=== PATIENT | female | born 1980 | race Caucasian/White ===

== ENCOUNTER 2024-07-06 06:14 | Emergency (ER) | payer OTHER, SELFPAY ==
--- OUTSIDE RECORDS SUMMARY | 2024-07-06 06:16 | XMS_ITS | CONTINUITY OF CARE DOCUMENT ---
Author Name User, QIE Address [address] [place] [address] [address] Address [address] [place] [address] [address] [place] [address] Phone [phone] Care Team Providers Care Stock Chaser Name Role Phone User, QIE Unavailable Unavailable
[2024-07-06] MEDS: ADENOSINE 6 MG/2ML INJ 12 MG IVP (06:51)
[2024-07-06] MEDS: 0.9 % SODIUM CHLORIDE 1000 ml 1,000 ML IV (06:51)
[2024-07-06 06:58] VITALS: BP 104/79; PULSE 227; RESP 22; TEMP 36.9; O2SAT 99
--- NOTE | 2024-07-06 07:00 | ED.GENADULT ---
HPI - General Adult General Chief complaint: Arrhythmia/Palpitations Stated complaint: SVT - Chest Pain Time Seen by Provider: 07/06/24 06:47 Source: patient Mode of arrival: ambulatory Limitations: no limitations History of Present Illness HPI narrative: 44-year-old smoker with recent pulmonary embolism, discharged last week from [facility] presents to the emergency department with episode of SVT that started shortly prior to arrival. She is anticoagulated for her pulmonary embolism. No history of AFib. Does have documented known history of SVT but has never required adenosine to treat in the past. Has tried vagal maneuvers with no success at home. Is having some achy chest pain and shortness of breath associated with her rapid heart rate. No new trauma or injury, no recreational drugs, no other associated complaints. Had been feeling well since hospital discharge until this morning with the episode of rapid heart rate. Past medical history notable for recent pulmonary embolism, history of SVT. Does not take any long-term medications besides the recent prescription for blood thinners, she is unsure which 1. No known drug allergies. ROS is notable for the cardiovascular symptoms as above only, otherwise denies times 12 systems. Related Data Allergies Allergy/AdvReac Type Severity Reaction Status Date / Time No Known Drug Allergies Allergy Verified 07/06/24 06:59 PFS PFS Social History Non-prescribed substance use: denies use Exam Const: Vital Signs, click to edit/add: Vital Signs - 24 hr 07/06/24 06:58 07/06/24 07:01 07/06/24 07:06 Temperature 98.5 F Pulse Rate 114 H Pulse Rate [Right Pulse Oximeter] 227 H Respiratory Rate 22 20 Blood Pressure 113/80 Blood Pressure [Le ft Upper Arm] 104/79 Pulse Oximetry 99 98 95 Oxygen Delivery Me thod Room Air Documenting provider has reviewed patient's vital signs: yes Common normals: alert General appearance: cooperative and well kempt Other: Mildly anxious but very appropriate for situation. Follows commands well. HENMT: Common normals: normocephalic, moist oral mucous membranes and oropharynx normal Head and scalp: normocephalic Eye: Common normals: conjunctivae normal General eye: normal appearance of both eyes Conjunctiva: conjunctiva(e) normal Neck & C-Spine: Common normals: no lymphadenopathy General: normal visual inspection Chest: Common normals: inspection of chest normal Resp: Common normals: normal respiratory effort, no use of accessory muscles and clear to auscultation bilaterally Effort & inspection: able to speak in complete sentences Auscultation: clear to auscultation bilaterally Cardio: Other: Very tachycardic, monitor reading 220s. I can not auscultate murmurs at this rate. GI: Common normals: Normal to inspection, nondistended, normoactive bowel sounds present, soft to palpation, non-tender, no hepatosplenomegaly and no masses Palpation: soft and no hepatosplenomegaly Neuro: Sensorium/orientation: alert Speech: speech normal Motor exam: no movement abnormalities noted Psych: Common normals: speech normal Appearance: well kempt Attitude: engaged Activity/motor behavior: appropriate eye contact Speech: normal speech Mood and affect: anxious Insight: insight good Judgement: judgment good Skin: Common normals: no rashes or lesions noted General skin exam: no rashes or lesions noted Course Course ED Course: 44-year-old female presenting with tachycardia. Bedside EKG quickly revealing supraventricular tachycardia as suspected. Rate is around 227. We attempted bedside vagal maneuvers x3 in these were not successful. It did take a little time to get an IV placed but once this was done, risks and benefits were discussed with patient and I recommended adenosine cardioversion. Verbal consent is obtained. Procedure: Cardioversion. Patient was bolused without 100 mL of fluid and then 12 mg of IV adenosine were given x1. Typical pause in heart rate occurred and then heart rate slowly returned in sinus rhythm, quickly picking up to about 120. Bedside EKG is again used to confirm sinus rhythm. Patient tolerated it well, states that her shortness of breath and chest pain are improving after the procedure. Will saline lock at 500 mL to avoid risk of heart failure. I do not think that she is going to get down to a ideal heart rate due to the pulmonary embolism. Reevaluation(s) Time of Reevaluation #1: 07:36 Reevaluation #1: Checked on patient, heart rate is now settling in the 110s. She is feeling better. We discussed risk factors for SVT, importance of staying on her blood thinners. Alarm symptoms that would warrant coming back to the ED. She verbalizes understanding and agreement of all this. Vital Signs Vital signs: Initial Vital Signs Temperature 98.5 F 07/06/24 06:58 Temperature Source Temporal Artery Scan 07/06/24 06:58 Pulse Rate 227 H 07/06/24 06:58 Pulse Rhythm Regular 07/06/24 06:58 Pulse Strength 3+ Normal 07/06/24 06:58 Respiratory Rate 22 07/06/24 06:58 Blood Pressure 104/79 07/06/24 06:58 Blood Pressure Mean 87 07/06/24 06:58 Blood Pressure Position Sitting 07/06/24 06:58 Pulse Oximetry 99 07/06/24 06:58 Oxygen Delivery Method Room Air 07/06/24 06:58 Vital Signs Temperature 98.5 F 07/06/24 06:58 Pulse Rate 227 H 07/06/24 06:58 Respiratory Rate 22 07/06/24 06:58 Blood Pressure 104/79 07/06/24 06:58 Pulse Oximetry 99 07/06/24 06:58 Oxygen Delivery Method Room Air 07/06/24 06:58 Temperature 98.5 F 07/06/24 06:58 Pulse Rate 114 H 07/06/24 07:06 Respiratory Rate 20 07/06/24 07:06 Blood Pressure 113/80 07/06/24 07:06 Pulse Oximetry 95 07/06/24 07:06 Oxygen Delivery Method Room Air 07/06/24 06:58 Medications Administered Medications: Generic Name Dose Route Start Last Admin Trade Name Freq PRN Reason Stop Dose Admin Sodium Chloride 1,000 mls @ 1,000 mls/hr 07/06/24 06:47 07/06/24 06:51 0.9 % Sodium Chloride 1000 Ml IV 07/06/24 07:46 1,000 mls/hr .Q1H DORCAS Administration Discontinued Medications Generic Name Dose Route Start Last Admin Trade Name Freq PRN Reason Stop Dose Admin Adenosine 12 mg 07/06/24 06:47 07/06/24 06:51 Adenosine 6 Mg/2ml Inj IVP 07/06/24 06:48 12 mg ONCE ONE Administration Discharge Plan Discharge Clinical Impression: Supraventricular tachycardia Patient Disposition: Home w/ Parent or Adult Condition: Improved Instructions: Supraventricular Tachycardia (ED) Additional Instructions: I am sorry that this episode happened, I do think that your heart was just a little more strained by the recent pulmonary embolism. It is okay for you to try those vagal maneuvers in the future, as they may be more effective for you at that time. This stronger episode with just likely the consequence of all the things going on in your body right now. The medication that your given, adenosine, only lasts in the bloodstream for a few seconds. There are no special restrictions for you other than what was already discussed by the doctors that cared for you for your blood clots. You will continue taking your blood thinners. It is common to have some achy chest pain that can last to a couple of hours. This is from the increased strain and demand on the heart but since you have had a recent normal angiogram, I am assured that this is not from a blockage of the coronary arteries. If you continue to have these episodes, sometimes will put you on a medication called a beta-anjali to help slow your heart rate but it is often not ideal due to side effects of increased shortness of breath. If you have further episodes of SVT and are unable to kick your self out of them at home with vagal maneuvers within 15-20 minutes, you should come into an emergency room. Come in any time if you are severely short of breath or having significant chest pain associated with this Activity Level: No Restrictions Discharge Diet: Regular Stand Alone Forms: [employer] Info Instructions
[2024-07-06 07:01] VITALS: O2SAT 98
[2024-07-06 07:06] VITALS: BP 113/80; PULSE 114; RESP 20; O2SAT 95
[2024-07-06 07:32] VITALS: BP 102/73
[2024-07-06 08:01] VITALS: O2SAT 81
--- OUTSIDE RECORDS SUMMARY | 2024-07-06 08:15 | XMS_ITS | Referral Summary ---
Author Organization [facility] Address [address] [place] [address] Care Team Providers Care Corporate Planner Name Role Phone No Ref-Primary, Physician Primary Care Provider Allergies No known active allergies Medications * This document contains information received from the source organization and may not represent a complete record from that organization. hydrOXYzine (ATARAX) 25 MG tabletIndications: Alcohol abuse Take 1-2 tablets (25-50 mg) by mouth 3 times daily as needed for anxiety 30 tablet 1 3 Active multivitamin w/minerals (THERA-VIT-M) tabletIndications: Alcohol dependence with uncomplicated withdrawal (H) Take 1 tablet by mouth daily 30 tablet 3 Active folic acid (FOLVITE) 1 MG tabletIndications: Alcohol abuse Take 1 tablet (1 mg) by mouth daily 30 tablet 3 Active melatonin 5 MG tabletIndications: Alcohol abuse Take 1 tablet (5 mg) by mouth every evening as needed for sleep 30 tablet 3 Active nicotine (NICORETTE) 2 MG gumIndications:Alc ohol abuse Place 1 each (2 mg) inside cheek every hour as needed for smoking cessation 30 each 3 Active thiamine (B-1) 100 MG tabletIndications: Alcohol abuse Take 1 tablet (100 mg) by mouth daily 30 tablet 3 Active traZODone (DESYREL) 50 MG tabletIndications: Alcohol abuse Take 1 tablet (50 mg) by mouth nightly as needed for sleep (may repeat after 60 minutes) 30 tablet 3 Active naltrexone (DEPADE/REVIA) 50 MG tabletIndications: Alcohol abuse Take 1 tablet (50 mg) by mouth daily 30 tablet 3 Active nitroFURantoin macrocrystal-monoh ydrate (MACROBID) 100 MG capsuleIndications :Urinary Tract Infection Take 1 capsule (100 mg) by mouth every 12 hours 10 capsule 3 Active Active Problems Problem Noted Date Diagnosed Date Alcohol abuse 06/08/2021 Alcohol dependence with uncomplicated withdrawal 06/08/2021 Social History Tobacco Use Types Packs/Day Years Used Date Smoking Tobacco: Every Day Cigarettes Smokeless Tobacco: Never Tobacco Cessation:Ready to Q uit: Not Asked; Counseling Given: Not Answered Alcohol Use Standard Drinks/Week Comments Yes 0 (1 standard drink = 0.6 oz pur e alcohol) daily Adolescent Education Answer Date Record ed Getting School Help Needed Not on file 03/23 Comments No Sex and Gender Information Value Date Recorded Sex Assigned at Female 06/09/2021 9:00 AM TERADATA SOLUTION ARCHITECT Legal Sex Female 4:18 AM TERADATA SOLUTION ARCHITECT Gender Identity Female 06/09/2021 9:00 AM TERADATA SOLUTION ARCHITECT Sexual Orientation Straight 06/09/2021 9: 00 AM TERADATA SOLUTION ARCHITECT Last Filed Vital Signs Vital Sign Reading Time Taken Comments Blood Pressure 122/81 10/22/2022 8:07 AM CDT Pulse 89 10/22/2022 8:07 AM CDT Temperature 36.4 C (97.6 F) 10/22/2022 8:07 AM CDT Respiratory Rate 16 10/22/2022 8:07 AM CDT Oxygen Saturation 100% 10/22/2022 8:07 AM CDT Inhaled Oxygen Concentration - - Weight 58.1 kg (128 lb) 10/20/2022 7:43 PM CDT Height 165.1 cm (5' 5) 10/20/2022 7:43 PM CDT Body Mass Index 21.3 10/20/2022 7:43 PM CDT Plan of Treatment Not on file Procedures Procedure Name Priority Date/Time Associated Diagnosis Comments BASIC METABOLIC PANEL Routine 10/22/2022 7:30 AM CDT LIPID PROFILE Routine 10/21/2022 6:29 AM CDT from Last 3 Months or Most Recently Relevant to Health Maintenance Results * Basic metabolic panel (10/22/2022 7:30 AM CDT) Sodium 137 136 - 145 mmol/L 10/22/2022 8:20 AM CDT [facility] Potassium 3.9 3.4 - 5.3 mmol/L 10/22/2022 8:20 AM CDT [facility] Chloride 103 98 - 107 mmol/L 10/22/2022 8:20 AM CDT [facility] Carbon Dioxide (CO2) 23 22 - 29 mmol/L 10/22/2022 8:20 AM CDT [facility] Anion Gap 11 7 - 15 mmol/L 10/22/2022 8:20 AM CDT [facility] Urea Nitrogen 7.7 6.0 - 20.0 mg/dL 10/22/2022 8:20 AM CDT [facility] Creatinine 0.68 0.51 - 0.95 mg/dL 10/22/2022 8:20 AM CDT [facility] Calcium 9.0 8.6 - 10.0 mg/dL 10/22/2022 8:20 AM CDT [facility] Glucose 89 70 - 99 mg/dL 10/22/2022 8:20 AM CDT [facility] GFR Estimate >90 >60 mL/min/1.7 3m2 10/22/2022 8:20 AM CDT [facility] Comment:eGFR calculated us2020 CKD-EPI equation. Blood STRUCTURE OF LEFT UPPER LIMB / Unknown Venipuncture / Unknown 10/22/2022 7:30 AM CDT 10/22/2022 7:47 AM CDT [facility] - BLOOD ORDERABLES Final Re sult [facility] [address] [facility] [place] [address], [facility] [phone] * Lipid panel (10/21/2022 6:29 AM CDT) Cholesterol 175 <200 mg/dL 10/21/2022 7:32 AM CDT [facility] Triglycerides 81 <150 mg/dL 10/21/2022 7:32 AM CDT [facility] Direct Measure HDL 102 >=50 mg/dL 2022 7:32 AM CDT [facility] LDL Cholesterol Calculated 57 <=100 mg/dL 10/21/2022 7:32 AM CDT [facility] Non HDL Cholesterol 73 <130 mg/dL 10/21/2022 7:32 AM CDT [facility] Blood STRUCTURE OF LEFT UPPER LIMB / Unknown Venipuncture / Unknown 10/21/2022 6:29 AM CDT 10/21/2022 6:57 AM CDT Narrative [facility] - 10/21/2022 7:32 AM CDT Cholesterol Desirable: <200 mg/dL Triglycerides Normal: Less than 150 mg/dL Borderline High: 150-199 mg/dL High: 200-499 mg/dL Very High: Greater than or equal to 500 mg/dL Direct Measure HDL Female: Greater than or equal to 50 mg/dL Male: Greater than or equal to 40 mg/dL LDL Cholesterol Desirable: <100mg/dL Above Desirable: 100-129 mg/dL Borderline High: 130-159 mg/dL High: 160-189 mg/dL Very High: >= 190 mg/dL Non HDL Cholesterol Desirable: 130 mg/dL Above Desirable: 130-159 mg/dL Borderline High: 160-189 mg/dL High: 190-219 mg/dL Very High: Greater than or equal to 220 mg/dL Jimena Pérez MD LAB - BLOOD ORDERABLES Tiffanie kinney Result [facility] [address] [facility] [place] [address], [facility] [phone] from Last 3 Months or Most Recently Relevant to Health Maintenance Insurance [facility] Advance Directives For more information, please contact: [phone] * Full Code (Latest Code Status on File) Date Activated Date Inactivated Comments 06/08/2021 6:01 AM 06/09/2021 7:14 PM All basic and advanced life-sustaining interventions are performed as appropriate Question Answer Comments Code status determined by: Discussion with patie nt/ legal decision maker Care Teams Corporate Planner Relationship Specialty Start Date End Date No Ref-Primary, Physician PCP - General 05/26/21
--- OUTSIDE RECORDS SUMMARY | 2024-07-06 08:15 | XMS_ITS | Encounter Summary ---
Author Organization [facility] Address [address] [place] [address] Care Team Providers Care Teacher Asst Name Role Phone No Ref-Primary, Physician Primary Care Provider Reason for Visit * Reason Onset Date Comments CD Outpatient 01/03/2014 eval Encounter Details Date Type Department Care Team ([facility] Contact Info) Description 01/03/2014 Telephone [facility] Behavioral Health Intake [address] [place] [address] [phone] Generic, Behavioral Intake, CD Outpatient (eval ) Social History Tobacco Use Types Packs/Day Years Used Date Smoking Tobacco: Never Assessed Comments Unknown Sex and Gender Information Value Date Recorded Sex Assigned at Female 06/09/2021 9:00 AM RESIDENT ADVISOR Legal Sex Female 4:18 AM RESIDENT ADVISOR Gender Identity Female 06/09/2021 9:00 AM RESIDENT ADVISOR Sexual Orientation Straight 06/09/2021 9: 00 AM RESIDENT ADVISOR documented as of this encounter Miscellaneous Notes * Telephone Encounter - Jin Charles - 01/04/2014 8:28 AM CDT Received rule 25 evaluation. Faxed to [facility] for the 01/18/14 assessment. kab * Telephone Encounter - Dorian Overton - 01/03/2014 3:15 PM CDT [facility] due [facility] detox rcd call from [facility]pp[facility] # [phone] Pt plan to dc 01/04 seeking iop [facility] will fax eval from them They have recommended in/pt but due to situational concerns they are ok with iop if accepted by [facility]. Face to face formerly [facility] 01/18 @ [facility] please forward eval when rcvd documented in this encounter Plan of Treatment Not on file documented as of this encounter Visit Diagnoses Not on filedocumented in this encounter Care Teams Teacher Asst Relationship Specialty Start Date End Date No Ref-Primary, Physician PCP - General 05/26/21 documented as of this encounter
--- OUTSIDE RECORDS SUMMARY | 2024-07-06 08:15 | XMS_ITS | Encounter Summary ---
Author Organization [employer] Address [address] [place] [address] Care Team Providers Care Scout Professional Sports Name Role Phone No Ref-Primary, Physician Primary Care Provider Encounter Details Date Type Department Care Team ([facility] st Contact Info) Description 06/20/2021 Documentation Only INTERFACED REPORT Unknown, Provider Social History Tobacco Use Types Packs/Day Years Used Date Smoking Tobacco: Never Smokeless Tobacco: Never Alcohol Use Standard Drinks/Week Comments Yes 0 (1 standard drink = 0.6 oz pur e alcohol) daily Comments Unknown Sex and Gender Information Value Date Recorded Sex Assigned at Female 06/09/2021 9:00 AM METAL HANDLER Legal Sex Female 4:18 AM METAL HANDLER Gender Identity Female 06/09/2021 9:00 AM METAL HANDLER Sexual Orientation Straight 06/09/2021 9: 00 AM METAL HANDLER COVID-19 Exposure Response Date Recorded In the last month, have you been in contact with someone who was confirmed or suspected to have Coronavirus / COVID-19? No / Unsure 06/19/2021 9:51 PM METAL HANDLER documented as of this encounter Plan of Treatment Not on file documented as of this encounter Visit Diagnoses Not on filedocumented in this encounter Care Teams Scout Professional Sports Relationship Specialty Start Date End Date No Ref-Primary, Physician PCP - General 05/26/21 documented as of this encounter
--- OUTSIDE RECORDS SUMMARY | 2024-07-06 08:15 | XMS_ITS | Encounter Summary ---
Author Organization [facility] Address [facility] [place] [address] Care Team Providers Care Wet Process Miller Name Role Phone No Ref-Primary, Physician Primary Care Provider Encounter Details Date Type Department Care Team ([facility] st Contact Info) Description 05/27/2021 Documentation Only INTERFACED REPORT Unknown, Provider Social History Tobacco Use Types Packs/Day Years Used Date Smoking Tobacco: Never Assessed Comments Unknown Sex and Gender Information Value Date Recorded Sex Assigned at Female 06/09/2021 9:00 AM DUTY MANAGER Legal Sex Female 4:18 AM DUTY MANAGER Gender Identity Female 06/09/2021 9:00 AM DUTY MANAGER Sexual Orientation Straight 06/09/2021 9: 00 AM DUTY MANAGER COVID-19 Exposure Response Date Recorded In the last month, have you been in contact with someone who was confirmed or suspected to have Coronavirus / COVID-19? No / Unsure 05/26/2021 12:10 PM DUTY MANAGER documented as of this encounter Plan of Treatment Not on file documented as of this encounter Visit Diagnoses Not on filedocumented in this encounter Care Teams Wet Process Miller Relationship Specialty Start Date End Date No Ref-Primary, Physician PCP - General 05/26/21 documented as of this encounter
--- OUTSIDE RECORDS SUMMARY | 2024-07-06 08:15 | XMS_ITS | Clinical Summary ---
Author Organization [facility] Address [address] [place] [address] Care Team Providers Care Novelties Sales Representative Name Role Phone No Ref-Primary, Physician Primary [...] 06/08/2021 Alcohol dependence with uncomplicated withdrawal 06/08/2021 Family History Medical History Relation Comments Substance Abuse Father Alcoholism Mother Relation Status Comments Father Mother Social History Tobacco Use Types Packs/Day Years [...] Sex Assigned at Female 06/09/2021 9:00 AM WASTE PAPER HAMMERMILL OPERATOR Legal Sex Female 4:18 AM WASTE PAPER HAMMERMILL OPERATOR Gender Identity Female 06/09/2021 9:00 AM WASTE PAPER HAMMERMILL OPERATOR Sexual Orientation Straight 06/09/2021 9: 00 AM WASTE PAPER HAMMERMILL OPERATOR Last Filed Vital Signs Vital Sign Reading [...] 10/20/2022 7:43 PM CDT Plan of Treatment Health Maintenance Due Date Last Done Comments ADVANCE CARE PLANNING 1980 ANNUAL REVIEW OF HM ORDERS 1980 MAMMO SCREENING 1980 YEARLY PREVENTIVE VISIT 01/25/1983 HIV SCREENING 01/25/1995 HEPATITIS C SCREENING 01/25/1998 HEPATITIS B IMMUNIZATION (1 of 3 - 19+ 3-dose series) 01/25/1999 Pneumococcal Vaccine: Pediatrics (0 to 5 Years) and At-Risk Patients (6 to 49 Years) (1 of 2 - PCV) 01/25/1999 PAP 01/25/2001 COVID-19 Vaccine (3 - season) 2024 09/30/2020, 09/09/2020 INFLUENZA VACCINE (#1) 2024 , 07/22/2019, 03/26/2018, Additional history exists PHQ-2 (once per calendar year) 2024 GLUCOSE 10/22/2025 10/22/2022, 0511/2022, 06/19/2021, Additional history exists LIPID 10/22/2027 10/21/2022, 06/09/2021 DTAP/TDAP/TD IMMUNIZATION (4 - Td or Tdap) 01/13/2028 01/12/2018, 01/29/2006, 01/29/1994 ZOSTER IMMUNIZATION (1 of 2) 01/25/2030 RSV VACCINE (1 - 1-dose 75+ series) 01/25/2055 HPV IMMUNIZATION Aged Out No longer e ligible based on patient's age to complete this topic MENINGITIS IMMUNIZATION Aged Out No l onger eligible based on patient's age to complete this topic RSV MONOCLONAL ANTIBODY Aged Out No l onger eligible based on patient's age to complete this topic Procedures Procedure Name Priority Date/Time Associated Diagnosis [...] 7:30 AM CDT 10/22/2022 7:47 AM CDT us [facility] - BLOOD ORDERABLES Final Re sult UR LABORATORY [facility] [address] [facility] [place] [address], [facility] [phone] * Lipid panel (10/21/2022 6:29 AM CDT) [...] Greater than or equal to 220 mg/dL us Jimena Pérez MD LAB - BLOOD ORDERABLES Tiffanie kinney Result UR LAB[facility]ATORY [facility] [address] [facility] [place] [address], [facility] [phone] from Last 3 Months or Most Recently Relevant to Health Maintenance Insurance [facility] Advance Directives For more information, please contact: [phone] * Full Code (Latest Code Status on File) Date Activated Date Inactivated Comments 06/08/2021 6:01 AM 06/09/2021 7:14 PM All basic and advanced life-sustaining interventions are performed as appropriate Question Answer Comments Code status determined by: Discussion with anton nt/ legal decision maker Care Teams Novelties Sales Representative Relationship Specialty Start Date End Date No Ref-Primary, Physician PCP - General 05/26/21
--- OUTSIDE RECORDS SUMMARY | 2024-07-06 08:16 | XMS_ITS | Encounter Summary ---
Author Organization [facility] Address [address] [address] Phone Care Team Providers Care Ballast Inspector Name Role Phone Rima Florence DO Primary Care Provider [phone] Encounter Details Date Type Department Care Team (Latest Contact Info) Description 07/03/2024 Travel Social History Tobacco Use Types Packs/Day Years Used Date Smoking Tobacco: Every Day Cigarettes 1 20 Smokeless Tobacco: Never Comments:Pt has been discuss ing quitting smoking with her personal doctor Alcohol Use Standard Drinks/Week Comments Yes 12 (1 standard drink = 0.6 oz pure alcohol) Hx of ETOH abuse, states she is drinking 1 litre of vodka per day 08/15/23 [facility] Custom IPV Answer Date Recorded Do you feel UNSAFE in any of your personal relationships with your family members or any other acquaintances? Yes 2024 Comments No Sex and Gender Information Value Date Recorded Sex Assigned at Female 01/05/2021 12:17 PM CDT Legal Sex Female 8:45 AM CDT Gender Identity Female 01/05/2021 12:17 PM CDT Sexual Orientation Not on file documented as of this encounter Functional Status * Patient's Vision Adequate to Safely Complete Daily Activities Answer Date of Assessment Author Yes 07/03/2024 11:05 AM Michael Bansal RN * Patient's Memory Adequate to Safely Complete Daily Activities Answer Date of Assessment Author Yes 07/03/2024 11:05 AM Michael Bansal RN documented as of this encounter Mental Status * Patient's Judgment Adequate to Safely Complete Daily Activities Answer Entry Date Author Yes 07/03/2024 11:05 AM [employer] Michael Saeed RN documented in this encounter Plan of Treatment Not on file documented as of this encounter Visit Diagnoses Not on filedocumented in this encounter Care Teams Ballast Inspector Relationship Specialty Start Date End Date Rima Florence DO [address] [address] PCP - General Family Medicine 06/16/24 documented as of this encounter
--- OUTSIDE RECORDS SUMMARY | 2024-07-06 08:16 | XMS_ITS | Clinical Summary ---
Author Organization [facility] Address [address] [place] [id number] Phone Care Team Providers Care Barnworker Groom Name Role Phone Rima Florence DO Primary Care Provider [phone] Medications metoprolol succinate (Toprol-XL) 25 MG 24 hour extended-releas e tablet Take 12.5 mg by mouth one time a day as needed (prn SVT). PT takes as needed for SVT 1 Active hydrOXYzine HCl (ATARAX) 25 MG tablet Take 25-50 mg by mouth three times a day as needed for Anxiety. Active tretinoin (Retin-A) 0.025 % creamIndication s:Neoplasm of skin Apply topically one time a day. Apply a pea sized amount to entire face; start out 2-3 times a week and gradually increase as skin tolerates 45 g 5 2 Active TAPENTADOL HCL OR Take 25 mg by mouth one time a day. Active apixaban (Eliquis) 5 MG tablet Take 5 mg by mouth two times a day. 5 Active Active Problems Problem Noted Date Diagnosed Date Paroxysmal SVT (supraventricular tachycardia) Panic attacks 09/30/2022 History of atypical nevus 04/09/2022 Overview (04/09/2022): left breast; moderate atypia, margins clear ([id number]). Assessment & Plan (04/09/2022 1:44 PM CDT): 04/09/22 PLAN: - Continue skin exams regularly as we have discussed. I do not see any signs of recurrence of your prior atypical mole Continue to monitor for any new or unusual skin lesions, and return to clinic for a recheck of any concerning spots prior to your next planned office visit. Continue to practice good sun protection. Neoplasm of skin 04/09/2022 Assessment & Plan (04/09/2022 1:51 PM CDT): 04/09/22 Plan: - We took a skin sample today via Shave biopsy and Punch removal to send to the lab to test. Our office will call you with results as soon has they have been returned to us for review - If applicable to your procedure practice good wound care to site(s) until the skin is fully healed and is pink/smooth. Written instructions about your provider's recommendations were provided to you at the time of your visit. Location: mid abdomen,left lateral brow Solar lentiginosis 04/09/2022 Assessment & Plan (04/09/2022 1:48 PM CDT): 04/09/22 PLAN: >>start Tretinoin 0.025% cream; use a pea sized amount to entire face at bedtime, start out 2-3 times a week gradually increase as skin tolerates Social anxiety disorder 01/01/2022 Alcohol use disorder, moderate, in controlled en vironment 01/01/2022 Alcohol abuse with withdrawal 12/26/2021 Alcoholism 06/04/2021 Alcoholic intoxication with complication 021 Rosacea 01/07/2018 Alcohol dependence 12/31/2013 Depressive disorder 09/16/2005 Alcohol abuse 09/16/2005 Resolved Problems Problem Noted Date Diagnosed Date Resolved Date Imbalance 10/01/2022 08/09/2023 Gastroenteritis 10/01/2022 08/09/2023 Dehydration 09/30/2022 08/09/2023 Hypernatremia 09/30/2022 08/09/2023 Encounters Date Type Department Care Team Description 07/03/2024 10:47 AM [employer] - 07/03/2024 4:37 PM [employer] Emergency [facility] EMERGENCY DEPARTMENT [address] [place] [phone] Syed Kirk MD Welch, Cady M, MD Alcoholic intoxication without complication (HCC) (Primary Dx) Discharge Disposition: Home and/or Self Care 07/03/2024 Travel 06/23/2024 3:35 AM [employer] - 06/23/2024 11:44 AM [facility] EMERGENCY DEPARTMENT [address] [place] [phone] Wendy Juarez MD Dundee, Sarah E, MD Alcoholic intoxication without complication (HCC) (Primary Dx) Discharge Disposition: Home and/or Self Care 06/23/2024 Travel 06/16/2024 11:38 AM [employer] - 06/16/2024 1:02 PM [facility] EMERGENCY DEPARTMENT [address] [place] [phone] Ana He MD Discharge Disposition: Left Without Being Seen (ED only) 06/16/2024 11:30 AM [facility] Office Visit [facility] [address] [phone] Stone Caceres PA-C Pain of lower extremity, unspecified laterality (Primary Dx) 06/16/2024 Travel 06/03/2024 11:36 AM [facility] - 06/03/2024 9:22 PM [facility] EMERGENCY DEPARTMENT [address] [place] [phone] Roni Hunt PA-C Hiren Heard PA-C Alcohol abuse (Primary Dx); COVID-19 Discharge Disposition: Home and/or Self Care 06/03/2024 Travel from Last 3 Months Surgical History Surgery Date Site/Laterality Comments FINGER SURGERY Description: Mass excision Medical History Medical History Date Comments History of atypical nevus 01/13/2018 Descri ption: 01/2018 left breast -watch Mod History of cardiac murmur 01/07/2018 Family History Medical History Relation Comments No Known Problems Father RV [employer] TW - Problem: No pertinent family history Melanoma Maternal Grandfather [employer] TW - Problem: Family history of malignant melanoma, Comment: Description: from MM located on the back. Was told this was the genetic type, does not know of any other family members with MM or pancreatic cancer. No Known Problems Mother [employer] TW - Problem: No pertinent family history Thyroid Disease Sister RV [employer] TW Relation Status Comments Father Maternal Grandfather Mother Sister Social History Tobacco Use Types Packs/Day Years Used Date Smoking Tobacco: Every Day Cigarettes 1 20 Smokeless Tobacco: Never Tobacco Cessation:Ready to Q uit: Not Asked; Counseling Given: Not Answered Comments:Pt has been discussing quitting smoking with her personal doctor Alcohol Use Standard Drinks/Week Comments Yes 12 (1 standard drink = 0.6 oz pure alcohol) Hx of ETOH abuse, states she is drinking 1 litre of vodka per day 08/15/23 IP Custom IPV Answer Date Recorded Do you feel UNSAFE in any of your personal relationships with your family members or any other acquaintances? Yes 2024 Comments No Sex and Gender Information Value Date Recorded Sex Assigned at Female 01/05/2021 12:17 PM CDT Legal Sex Female 8:45 AM CDT Gender Identity Female 01/05/2021 12:17 PM CDT Sexual Orientation Not on file Obstetrics History Last Filed Vital Signs Vital Sign Reading Time Taken Comments Blood Pressure 114/71 07/03/2024 11:00 AM [employer] Pulse 106 07/03/2024 11:00 AM [employer] Temperature 37 C (98.6 F) 07/03/2024 11:10 AM [employer] Respiratory Rate 16 07/03/2024 4:34 PM [employer] Oxygen Saturation 97% 07/03/2024 12:21 PM [employer] Inhaled Oxygen Concentration - - Weight 54.4 kg (120 lb) 06/16/2024 11:51 AM [employer] Height 165.1 cm (5' 5) 06/03/2024 11:29 AM [employer] Body Mass Index 19.97 06/03/2024 11:29 AM [employer] Plan of Treatment Health Maintenance Due Date Last Done Comments Cervical Cancer Screening 1980 Last pap w/ HPV Testing 1980 Last pap w/o HPV Testing 1980 Hepatitis B Vaccine (Standing Order) (1 of 3 - 19+ 3-dose series) 01/25/1999 PERTUSSIS (Standing Order) 01/25/1999 Pneumococcal/PCV20 Vaccine: Pediatrics (2-5 yrs) and At-Risk Patients (6-49 yrs) (Standing Order) (1 of 2 - PCV) 01/25/1999 TETANUS (Standing Order) 01/25/1999 COVID-19 Vaccine (2023- season) 2024 Influenza Vaccine Seasonal (Standing Order) (#1) 2024 MAMMO,SCREEN 03/14/2025 03/14/2024, 06/25/2020 HPV Vaccine (Standing Order) Aged Out No longer eligible based on patient's age to complete this topic Procedures Procedure Name Priority Date/Time Associated Diagnosis Comments POCT BREATHALYZER COLEMAN 07/03/2024 11: 12 AM [employer] POCT BREATHALYZER COLEMAN 06/23/2024 8:5 5 AM [employer] ALCOHOL STAT 06/23/2024 4:08 AM [employer] POCT BREATHALYZER COLEMAN 06/03/2024 9:0 5 PM [employer] POCT BREATHALYZER COLEMAN 06/03/2024 7:3 7 PM [employer] CT ANGIO CHEST PE STAT 06/03/2024 3:4 3 PM [employer] SARS-COV-2/INFLUENZA A AND B/RESPIRATORY SYNCYTIAL VIRUS, MOLECULAR DETECTION STAT 06/03/2024 1:30 PM [employer] EKG 12-LEAD STAT 06/03/2024 1:12 PM [employer] D-DIMER STAT 06/03/2024 1:12 PM [employer] HEMOGRAM STAT 06/03/2024 1:12 PM [employer] VENOUS BLOOD GASES STAT 06/03/2024 12 :52 PM [employer] LIPASE STAT 06/03/2024 12:52 PM [employer] MAGNESIUM STAT 06/03/2024 12:52 PM [employer] COMPREHENSIVE METABOLIC PANEL STAT 06/03/2024 12:52 PM [employer] HCG, URINE QUALITATIVE STAT 12:33 PM [employer] URINALYSIS, REFLEX TO CULTURE STAT 06/03/2024 12:33 PM [employer] POCT BREATHALYZER COLEMAN 06/03/2024 11: 55 AM [employer] MAMM JU DIAG DIGITAL BILAT Routine 03/14/2024 2:25 PM CDT Breast pain Dense breast from Last 3 Months or Most Recently Relevant to Health Maintenance Results * POCT BREATHALYZER (06/23/2024 8:55 AM [employer]) Only the most recent of3 resultswithin the time period is included. POC BREATHALYZER 0.214 06/23/2024 8:55 AM [employer] us Jessica Waters MD IP POINT OF CARE TEST ORDERABL ES Final Result * (ABNORMAL) ALCOHOL (06/23/2024 4:08 AM [employer]) Alcohol 0.385(H) <=0.010 % 06/23/2024 4:42 AM [employer] [facility] Blood BLOOD SPECIMEN / Unknown Venipuncture / Unknown 06/23/2024 4:08 AM [employer] 06/23/2024 4:10 AM [employer] us Wendy Juarez MD EC CHEMISTRY ORDERABLES Fin al Result [facility] [address] [place] [address], [facility] [phone] * CT ANGIO CHEST PE (06/03/2024 3:43 PM [employer]) Anatomical Region Laterality Modality Chest, Lung Computed Tomogra phy 06/03/2024 3:49 PM [employer] Narrative 06/03/2024 4:12 PM [employer] For Patients: As a result of the Cures Act, medical imaging exams and procedure reports are released immediately into your electronic medical record. You may view this report before your referring provider. If you have questions, please contact your health care provider. INDICATION: Short of breath. COMPARISON: None. TECHNIQUE: CT angiogram chest with contrast, pulmonary embolism protocol. Multiplanar axial, coronal, and sagittal reformats are included. MIP images to improve detection of pulmonary emboli are included. Intravenous contrast: 100 mL Omnipaque 350. FINDINGS: PE: Well-timed contrast bolus. No pulmonary emboli. Normal caliber main pulmonary artery. Normal sized right heart chambers. No reflux of contrast below the diaphragm. Airway: Normal tracheobronchial tree. Lungs: Mild respiratory motion. Mild basilar atelectasis. No nodules or masses. No consolidations. Normal appearance of the pulmonary interstitium. Pleura: No pleural effusion. No pneumothorax. Lymph nodes: No thoracic adenopathy. Mediastinum: No pneumomediastinum. No mass. Heart and great vessels: No pericardial effusion. Normal cardiac chamber size. No calcified atherosclerotic plaques. No aortic aneurysm. Chest wall: Normal. No masses. Upper abdomen: Severe hepatic steatosis and hepatomegaly. Bones: No fractures. No focal bone lesions. IMPRESSION: 1. No pulmonary embolus. 2. No acute thoracic findings. 3. Severe hepatic steatosis and hepatomegaly. Please note that all CT scans at this facility use dose modulation, iterative reconstruction, and/or weight-based dosing when appropriate to reduce radiation dose to as low as reasonably achievable. Dictated by Pastora Nichols MD @ 06/03/2024 4:12:52 PM Electronically Signed Procedure Note Pastora Nichols MD - 06/03/2024 For Patients: As a result of the Cures Act, medical imagingexams and procedure reports are released immediately into your electronicmedical record. You may view this report before your referring provider. If youhave questions, please contact your health care provider. INDICATION: Short of breath. COMPARISON: None. TECHNIQUE: CT angiogram chest with contrast, pulmonary embolism protocol.Multiplanar axial, coronal, and sagittal reformats are included. MIP images toimprove detection of pulmonary emboli are included. Intravenous contrast: 100 mL Omnipaque 350. FINDINGS: PE: Well-timed contrast bolus. No pulmonary emboli. Normal caliber main pulmonary artery. Normal sized right heart chambers. No reflux of contrastbelow the diaphragm. Airway: Normal tracheobronchial tree. Lungs: Mild respiratory motion. Mild basilar atelectasis. No nodules ormasses. No consolidations. Normal appearance of the pulmonary interstitium. Pleura: No pleural effusion. No pneumothorax. Lymph nodes: No thoracic adenopathy. Mediastinum: No pneumomediastinum. No mass. Heart and great vessels: No pericardial effusion. Normal cardiac chambersize. No calcified atherosclerotic plaques. No aortic aneurysm. Chest wall: Normal. No masses. Upper abdomen: Severe hepatic steatosis and hepatomegaly. Bones: No fractures. No focal bone lesions. IMPRESSION: 1. No pulmonary embolus. 2. No acute thoracic findings. 3. Severe hepatic steatosis and hepatomegaly. Please note that all CT scans at this facility use dose modulation,iterative reconstruction, and/or weight-based dosing when appropriate to reduceradiation dose to as low as reasonably achievable. Dictated by Pastora Nichols MD @ 06/03/2024 4:12:52 PM Electronically Signed Roni Hunt PA-C CT ORDERABLES Final Result * (ABNORMAL) SARS-COV-2/INFLUENZA A AND B/RESPIRATORY SYNCYTIAL VIRUS, MOLECULAR DETECTION (06/03/2024 1:30 PM [employer]) SARS-CoV-2 RNA (COVID-19) Detected(A) Not Detected 06/03/2024 2:14 PM [employer] [facility] Influenza A Not Detected Not Detected 06/03/2024 2:14 PM [employer] [facility] Influenza B Not Detected Not Detected 06/03/2024 2:14 PM [employer] [facility] Respiratory Syncytial Virus Not Detected Not Detected 06/03/2024 2:14 PM [employer] [facility] Swab ENTIRE NASOPHARYNX / Unknown Non-blood collection / Unknown 06/03/2024 1:30 PM [employer] 06/03/2024 1:35 PM [employer] Narrative [facility] - 06/03/2024 2:14 PM [employer] Test detects target RNA by real-time polymerase chain reaction (PCR) on the [employer] GeneXpert System. Results from this test should not be used as the sole basis for treatment or other patient management decisions. Roni Hunt PA-C EC MICROBIOLOGY - GENERAL ORD ERABLES Final Result Performing Organization Address City/[facility]/ZIP Co de Phone Number [facility] [address] [phone] * EKG 12-LEAD (06/03/2024 1:12 PM [employer]) Ventricular Rate 91 BPM RMCMUSE Atrial Rate 91 BPM RMCMUSE P-R Interval 150 ms RMCMUSE QRS Duration 82 ms RMCMUSE QT 396 ms RMCMUSE QTc 487 ms RMCMUSE P [place] 70 degrees RMCMUSE R [place] -43 degrees RMCMUSE T [place] 53 degrees RMCMUSE 06/03/2024 1:12 PM [employer] 06/06/2024 6:09 PM [employer] Narrative RMCMUSE - 06/06/2024 6:09 PM [employer] Confirming Hai Dover Normal sinus rhythm Left axis deviation Prolonged QT Abnormal ECG When compared with ECG of 01-AUG-2023 20:01, Nonspecific T wave abnormality no longer evident in Inferior leads Procedure Note Provider, Rv Unknown - 06/06/2024 Confirming Hai Dover Normal sinus rhythm Left axis deviation Prolonged QT Abnormal ECG When compared with ECG of 01-AUG-2023 20:01, Nonspecific T wave abnormality no longer evident in Inferior leads us Roni Hunt PA-C IP ECG ORDERABLES Final Resul t Performing Organization Address City/[facility]/ZIP Co de Phone Number RMCMUSE * HEMOGRAM (06/03/2024 1:12 PM [employer]) WBC 4.4 4.0 - 11.0 10*3/uL 06/03/2024 1:16 PM [facility] RBC 4.99 3.80 - 5.20 10*6/uL 06/03/2024 1:16 PM [facility] HGB 14.9 12.0 - 16.0 g/dl 06/03/2024 1:16 PM [facility] HCT 42.9 35.0 - 47.0 % 06/03/2024 1:16 PM [facility] MCV 86.0 80 - 98 fL 06/03/2024 1:16 PM [facility] MCH 29.9 27.0 - 34.0 pg 06/03/2024 1:16 PM [facility] MCHC 34.7 32 - 36 g/dl 06/03/2024 1:16 PM [facility] PLT 258 150 - 420 10*3/uL 06/03/2024 1:16 PM [facility] RDW-CV 13.1 11.6 - 14.4 % 06/03/2024 1:16 PM [facility] RDW-SD 40.8 36.5 - 46.3 fL 06/03/2024 1:16 PM [facility] Blood BLOOD SPECIMEN / Unknown Venipuncture / Unknown 06/03/2024 1:12 PM [employer] 06/03/2024 1:14 PM [employer] Roni Hunt PA-C EC HEMATOLOGY ORDERABLES Tiffanie l Result Performing Organization Address City/State/[facility] Co de Phone Number [facility] [address] [place] [address] * (ABNORMAL) D-DIMER (06/03/2024 1:12 PM [employer] M[employer]) Pathologist [facility] D-Dimer 1.37(H) 0.22 - 0.50 mg/L 06/03/2024 1:24 PM [facility] Blood BLOOD SPECIMEN / Unknown Venipuncture / Unknown 06/03/2024 1:12 PM [employer] 06/03/2024 1:14 PM [employer] MACH[employer] [facility] - 06/03/2024 1:24 PM [employer] Result is mg/L FEU (Fibrinogen Equivalent Units) D-Dimer is elevated in DVT,PE, and DIC, however, D-Dimer in NOT specific for DVT and PE and therefore, cannot be applied as a sole confirmatory marker. D-Dimer should be used as an aide in diagnosis. An [facility] laboratory study showed that the cutoff value of 0.5 mg/L FEU has a 100% negative predictive value us Roni Hunt PA-C EC HEMATOLOGY ORDERABLES Tiffanie l Result [facility] [address] [phone] * (ABNORMAL) COMPREHENSIVE METABOLIC PANEL (06/03/2024 12:52 PM [employer]) Sodium 138 135 - 144 mmol/L 06/03/2024 1:28 PM [facility] Potassium 3.6 3.4 - 5.1 mmol/L 06/03/2024 1:28 PM [facility] Comment:Specimen slightly he molyzed. Chloride 100 98 - 107 mmol/L 06/03/2024 1:28 PM [facility] Carbon Dioxide 24 22 - 30 mmol/L 06/03/2024 1:28 PM [facility] Calcium 8.6 8.6 - 10.3 mg/dL 06/03/2024 1:28 PM [facility] Alkaline Phosphatase 81 38 - 126 U/L 06/03/2024 1:28 PM [facility] Comment:Specimen slightly he molyzed. Aspartate Aminotransferase 79(H) 14 - 36 U/L 06/03/2024 1:28 PM [facility] Comment:Specimen slightly he molyzed. Alanine Aminotransferase 49(H) <35 U/L 06/03/2024 1:28 PM [facility] Glucose 94 74 - 100 mg/dL 06/03/2024 1:28 PM [facility] Blood Urea nitrogen 12 7 - 17 mg/dL 06/03/2024 1:28 PM [facility] Creatinine 0.50(L) 0.52 - 1.04 mg/dL 06/03/2024 1:28 PM [facility] Protein, Total 7.8 6.3 - 8.2 g/dL 06/03/2024 1:28 PM [facility] Albumin 4.8 3.5 - 5.0 g/dL 06/03/2024 1:28 PM [facility] Bilirubin, Total 0.6 0.2 - 1.3 mg/dL 06/03/2024 1:28 PM [facility] Globulin 3.0 1.4 - 4.8 g/dL 06/03/2024 1:28 PM [facility] Anion Gap 14 5 - 15 mmol/L 06/03/2024 1:28 PM [facility] Glomerular Filtration Rate >60 >60 mL/min/1. 73 m*2 06/03/2024 1:28 PM [facility] Comment:This calculation use s CKD-EPI 2020 equation; it has not been validated in women. Blood BLOOD SPECIMEN / Unknown Venipuncture / Unknown 06/03/2024 12:52 PM [employer] 06/03/2024 12:55 PM [employer] us Roni Hunt PA-C EC CHEMISTRY ORDERABLES Final Result Performing Organization Address City/State/[facility] Co de Phone Number [facility] [address] [place] [address] * (ABNORMAL) VENOUS BLOOD GASES (06/03/2024 12:52 PM [employer]) pH, Venous 7.46(H) 7.35 - 7.45 06/03/2024 12:58 PM [facility] pCO2, Venous 37 34 - 50 mmHg 06/03/2024 12:58 PM [facility] pO2, Venous 48 24 - 48 mmHg 06/03/2024 12:58 PM [employer] [facility] Bicarbonate (HCO3), Venous 26.3 23 - 30 mmol/L 06/03/2024 12:58 PM [facility] O2 Saturation, Venous Calculated 86.7 No Established Reference Range % 06/03/2024 12:58 PM [facility] Base Excess, Venous 2.6(H) 0 - 2 mmol/L 06/03/2024 12:58 PM [facility] Amount Oxygen (Liters) 0 L 06/03/2024 12:58 PM [facility] Amount Oxygen (%) 0 % 06/03/2024 12:58 PM [facility] Blood WHOLE BLOOD SPECIMEN / Unknown Venipuncture / Unknown 06/03/2024 12:52 PM [employer] 06/03/2024 12:55 PM [employer] Roni Hunt PA-C EC CHEMISTRY ORDERABLES Final Result Performing Organization Address City/[facility] Co de Phone Number [facility] [address] [phone] * MAGNESIUM (06/03/2024 12:52 PM [employer]ING MACHINE [employer]) Magnesium 2.1 1.6 - 2.3 mg/dL 06/03/2024 1:28 PM [employer] [facility] Comment:Specimen slightly he molyzed. Blood BLOOD SPECIMEN / Unknown Venipuncture / Unknown 06/03/2024 12:52 PM [employer] 06/03/2024 12:55 PM [employer] Roni HELMS-Silver EC CHEMISTRY ORDERABLES Final Result Performing Organization Address [facility]/ZIP Co de Phone Number [facility] [address] [phone] * LIPASE (06/03/2024 12:52 PM CONT[employer]ING MACHINE [employer]) Lipase 230 23 - 300 U/L 06/03/2024 1:26 PM [facility] Blood BLOOD SPECIMEN / Unknown Venipuncture / Unknown 06/03/2024 12:52 PM [employer] 06/03/2024 12:55 PM [employer]ER Roni Hunt PA-C EC CHEMISTRY ORDERABLES Final Result [facility] [address] [phone] * (ABNORMAL) URINALYSIS, REFLEX TO CULTURE (06/03/2024 12:33 PM [employer] M[employer]INE [employer]) UA Color Yellow Light Yellow, Yellow 06/03/2024 1:03 PM [facility] Urine Appearance Slightly Cloudy(A) Clear 06/03/2024 1:03 PM [facility] Urine Specific [place] <=1.005 1.005 - 1.030 06/03/2024 1:03 PM [facility] Urine pH 5.5 5.0 - 8.0 06/03/2024 1:03 PM [facility] Urine Leukocyte Esterase Negative Negative 06/03/2024 1:03 PM [facility] Urine Nitrates Negative Negative 06/03/2024 1:03 PM [facility] Urine Protein Trace(A) Negative 06/03/2024 1:03 PM [facility] Urine Glucose Negative Negative 06/03/2024 1:03 PM [facility] Urine Ketones Negative Negative 06/03/2024 1:03 PM [facility] [facility] Urine Urobilinogen Normal Normal 06/03/2024 1:03 PM [facility] Urine Bilirubin Negative Negative 1:03 PM [facility] Urine Blood 3+(A) Negative 06/03/2024 1:03 PM [facility] Urine WBC's 0-5 0 - 5 /HPF 06/03/2024 1:03 PM [facility] Urine RBC's 2-8(A) 0 - 2 /HPF 06/03/2024 1:03 PM CONTINUOUS MINING MACHINE COAL MINER [facility] Urine Epithelial Cells Occasional( A) Negative /HPF 06/03/2024 1:03 PM CONTINUOUS MINING MACHINE COAL MINER [facility] Urine Bacteria Negative Negative /HPF 06/03/2024 1:03 PM CONTINUOUS MINING MACHINE COAL MINER [facility] Urine URINE SPECIMEN COLLECTION, CLEAN CATCH / Unknown Non-blood collection / Unknown 06/03/2024 12:33 PM CONTINUOUS MINING MACHINE COAL MINER 06/03/2024 12:37 PM CONTINUOUS MINING MACHINE COAL MINER Roni Hunt PA-C EC URINE ORDERABLES Final Res ult Performing Organization Address [facility]/ZIP Co de Phone Number [facility] [address] [place] [address] * HCG, URINE QUALITATIVE (06/03/2024 12:33 PM CONTINUOUS MINING MACHINE COAL MINER) hCG, Urine Qualitative Negative Negative 06/03/2024 12:42 PM CONTINUOUS MINING MACHINE COAL MINER [facility] Urine URINE SPECIMEN COLLECTION, CLEAN CATCH / Unknown Non-blood collection / Unknown 06/03/2024 12:33 PM CONTINUOUS MINING MACHINE COAL MINER 06/03/2024 12:37 PM CONTINUOUS MINING MACHINE COAL MINER Roni Hunt PA-C EC URINE ORDERABLES Final Res ult Performing Organization Address [facility] Co de Phone Number [facility] [address] [place] [address] * MAMM JU DIAG DIGITAL BILAT (03/14/2024 2:25 PM CDT) Anatomical Region Laterality Modality Breast Bilateral Mammography 03/14/2024 2:08 PM CDT Narrative 03/14/2024 2:39 PM CDT PROCEDURE: MAMM JU DIAG DIGITAL BILAT, US BREAST MILDRED FU BILT WO OR W AXILLA LMT. HISTORY: Left breast pain. TECHNIQUE: Full field digital mammography of both breasts in CC and MLO projections, with tomosynthesis. COMPARISON: 06/18/2020. FINDINGS: Mammogram: The breasts are heterogeneously dense, which may obscure small masses. No suspicious abnormality in either breast. Ultrasound: Targeted sonographic evaluation of the left breast was performed in the area of clinical concern, as directly indicated by the patient. In the outer left breast there is normal-appearing fibroglandular tissue. No suspicious solid or complex cystic mass. No dilated ducts or concerning filling defects. A few scattered subcentimeter cysts are noted. IMPRESSION: No mammographic evidence of breast malignancy. Recommendation: Normal Interval Follow-up. . Imaging findings and recommendations discussed with the patient. BI-RADS 2: Benign findings. Electronically signed by Clarence Fonseca MD Report Date: 03/14/2024 2:39 PM Procedure Note Clarence Fonseca MD - 03/14/2024 PROCEDURE: MAMM JU DIAG DIGITAL BILAT, US BREAST MILDRED FU BILT WO OR WAXILLA LMT. HISTORY: Left breast pain. TECHNIQUE: Full field digital mammography of both breasts in CC and MLO projections, with tomosynthesis. COMPARISON: 06/18/2020. FINDINGS: Mammogram: The breasts are heterogeneously dense, which may obscure small masses.No suspicious abnormality in either breast. Ultrasound: Targeted sonographic evaluation of the left breast was performed in thearea of clinical concern, as directly indicated by the patient. In the outer leftbreast there is normal-appearing fibroglandular tissue. No suspicious solid orcomplex cystic mass. No dilated ducts or concerning filling defects. A fewscattered subcentimeter cysts are noted. IMPRESSION: No mammographic evidence of breast malignancy. Recommendation: Normal Interval Follow-up. . Imaging findings and recommendations discussed with the patient. BI-RADS 2: Benign findings. Electronically signed by Clarence Fonseca MD Report Date: 03/14/2024 2:39 PM us Coral POLK MAMMOGRAPHY ORDERABLES Final Result from Last 3 Months or Most Recently Relevant to Health Maintenance Advance Directives For more information, please contact: [phone] * Full Code (Latest Code Status on File) Date Activated Date Inactivated Comments 10/01/2022 12:26 AM 10/02/2022 5:34 PM Care Teams Barnworker Groom Relationship Specialty Start Date End Date Rima Florence DO [address] [address] PCP - General Family Medicine 06/16/24
--- OUTSIDE RECORDS SUMMARY | 2024-07-06 08:16 | XMS_ITS | Encounter Summary ---
Author Organization [facility] Address [address], [place] [address] Care Team Providers Care Forensic Psychologist Name Role Phone No Primary/Referring, Phy Primary Care Provider Unavailable Encounter Details Date Type Department Care Team (Late Contact Info) Description 03/01/2019 Lab Requisition [facility] [address] Dermatology [address] [place] [address] Petra Ortega MD [address] [facility] [address] [place], [place] [id number] Neoplasm of unspecified behavior of bone, soft tissue, and skin Social History Tobacco Use Types Packs/Day Years Used Date Smoking Tobacco: Some Days Cigarettes Last attempted to quit: 11/06/2011 Smokeless Tobacco: Never Comments:Smoking History Pac ks/day: Alcohol Use Standard Drinks/Week Comments No 0 (1 standard drink = 0.6 oz pur e alcohol) Abstinent as of 06/2013. Sex and Gender Information Value Date Recorded Sex Assigned at Not on file Gender Identity Not on file Sexual Orientation Not on file documented as of this encounter Plan of Treatment Upcoming Encounters Date Type Department Care Team ([facility] Contact Info) Description 07/31/2024 2:30 PM TAPER AND FLOATER Appointment [facility] Cardiac Non-Invasive Lab [address] [place] [address] 08/18/2024 11:00 AM CDT Appointment [facility] Cardiology [address] [place] [address] Chad Wood MD [address] [place] [address] documented as of this encounter Procedures Procedure Name Priority Date/Time Associated Diagnosis Comments SURGICAL PATHOLOGY, DERMATOLOGY Routine 02/28/2019 9:00 AM CDT Neoplasm of unspecified behavior of bone, soft tissue, and skin (HRC) documented in this encounter Results * Surgical Path, Dermatology (02/28/2019 9:00 AM CDT) Case Report Surgical Pathology Report Case: [id number] Authorizing Provider: Petra Ortega MD Collected: 02/28/2019 09:00 AM Ordering Location: [place] [address] Received: 03/02/2019 10:07 AM Dermatology Pathologist: Arnulfo Grfifiths MD Specimen: Toenail, right great toenail 03/07/2019 11:[address] [facility] 3800 DERMATOLOGY FINAL DIAGNOSIS Nail plate avulsion and nail bed punch biopsy, right great toe: - Organizing subcorneal hemorrhage adherent to deep surface of avulsed nail plate. - Fibrosis, angioplasia, and mild chronic inflammation of biopsied nail bed. - No evidence of a melanocytic or vascular proliferation or malignancy. COMMENT: Nearly exhaustive step sections into the nail bed punch biopsy reveal no evidence of a neoplasm. Melanocyte immunostains (SOX-10 and Melan-A) show scant, bland melanocytes along the basilar layer of the sampled nail bed epithelium. Iron stain and [place] Kishor melanin stain are negative with adequate external controls. PAS stain is negative on the punch biopsy, with adequate control. PAS on the nail plate shows a few positively staining structures equivocal for fungal hyphae, which I could not confirm with GMS stain. Overall, these findings suggest that the clinical pathology is attributable to traumatic subungual hemorrhage; there is no evidence to suggest a neoplasm. 03/07/2019 11:[address] [facility] 3800 DERMATOLOGY Clinical Information 03/07/2019 11:[address] [facility] 3800 DERMATOLOGY Gross Description A. Received in formalin, labeled with the patient's name and Toenail, right great toenail are fragments of nail, 17 x 8 x 5 mm in aggregate, marked with black ink and submitted entirely in A1. Also received is a 3 x 3 x 2 mm punch biopsy of skin, marked with green ink, bisected and submitted entirely in A2. KG 03/07/2019 11:05 AM CDT HOSPITAL SALES REPRESENTATIVE 3800 DERMATOLOGY Microscopic Description Microscopic examination is performed. 03/07/2019 11:05 AM CDT HOSPITAL SALES REPRESENTATIVE 3800 DERMATOLOGY Special Stains The stain controls have been reviewed and stain appropriately. 03/07/2019 11:05 AM CDT HOSPITAL SALES REPRESENTATIVE 3800 DERMATOLOGY Embedded Images 03/07/2019 11:05 AM CDT HOSPITAL SALES REPRESENTATIVE 3800 DERMATOLOGY Skin EXAMINATION OF TOENAIL / Unknown 02/28/2019 9:00 AM CDT 03/02/2019 10:07 AM CDT Petra Ortega MD LAB PATHOLOGY [facility] [address] DERMAT[address]Y [address] documented in this encounter Visit Diagnoses Diagnosis Neoplasm of unspecified behavior of bone, soft tissue, and skin (HRC) documented in this encounter Care Teams Forensic Psychologist Relationship Specialty Start Date End Date No Primary/Referring, Phy PCP - General 06/28/24 documented as of this encounter
--- OUTSIDE RECORDS SUMMARY | 2024-07-06 08:16 | XMS_ITS | Encounter Summary ---
Author Organization [facility] Address [address] [address] Phone Care Team Providers Care Professor Of Anthropology Name Role Phone Rima Florence DO Primary Care Provider [phone] Encounter Details Date Type Department Care Team (Late st Contact Info) Description 02/25/2022 Lab Requisition [facility] [address] [place] [phone] Aggie Farley PA-C [facility] [address] [place] [id number] Decreased white blood cell count, unspecified; Alcohol dependence, uncomplicated (HCC); Localized edema Social History Tobacco Use Types Packs/Day Years Used Date Smoking Tobacco: Former Smokeless Tobacco: Never Alcohol Use Standard Drinks/Week Comments Yes 0 (1 standard drink = 0.6 oz pure alcohol) relapsed with ETOH, sober now for 10 days Comments No Sex and Gender Information Value Date Recorded Sex Assigned at Female 01/05/2021 12:17 PM CDT Legal Sex Female 8:45 AM CDT Gender Identity Female 01/05/2021 12:17 PM CDT Sexual Orientation Not on file documented as of this encounter Plan of Treatment Not on file documented as of this encounter Procedures Procedure Name Priority Date/Time Associated Diagnosis Comments D-DIMER Routine 02/25/2022 12:55 PM CDT Decreased white blood cell count, unspecified Alcohol dependence, uncomplicated (HCC) Localized edema documented in this encounter Results * D-DIMER (02/25/2022 12:55 PM CDT) D-Dimer 0.22 0.22 - 0.50 mg/L 02/25/2022 1:30 PM CDT [facility] Blood BLOOD SPECIMEN / Unknown Blood, Non-Lab Collect / Unknown 02/25/2022 12:55 PM CDT 02/25/2022 1:19 PM CDT Narrative [facility] - 02/25/2022 1:30 PM CDT Result is mg/L FEU (Fibrinogen Equivalent Units) D-Dimer is elevated in DVT,PE, and DIC, however, D-Dimer in NOT specific for DVT and PE and therefore, cannot be applied as a sole confirmatory marker. D-Dimer should be used as an aide in diagnosis. An [facility] laboratory study showed that the cutoff value of 0.5 mg/L FEU has a 100% negative predictive value us Aggie Farley PA-C EC HEMATOLOGY ORDERABLES F inal Result [facility] [address] [place] [address], [facility] [phone] documented in this encounter Visit Diagnoses Diagnosis Decreased white blood cell count, unspecified Alcohol dependence, uncomplicated (HCC) Localized edema Edema documented in this encounter Additional Health Concerns Infection Onset Date Last Indicated Resolved Time R/O Respiratory Pathogens 10/19/2023 10/19/2023 12:19 PM CDT R/O COVID-19 10/19/2023 10/19/2023 10/19/2023 12:1 9 PM CDT R/O Respiratory Pathogens 06/03/2024 06/03/2024 2:14 PM INTEGRATION CONSULTANT R/O COVID-19 06/03/2024 06/03/2024 06/03/2024 2:14 PM INTEGRATION CONSULTANT COVID-19 Confirmed 06/03/2024 06/03/2024202 5 9:26 AM INTEGRATION CONSULTANT documented as of this encounter Care Teams Professor Of Anthropology Relationship Specialty Start Date End Date Rima Florence DO [address] [address] PCP - General Family Medicine 06/16/24 documented as of this encounter
--- OUTSIDE RECORDS SUMMARY | 2024-07-06 08:16 | XMS_ITS | Clinical Summary ---
Author Organization [facility] Address [address] [place] [address] Care Team Providers Care Talent Acquisition Administrator Name Role Phone Unavailable Primary Care Provider Unavailabl e Allergies No known active allergies Medications hydrOXYzine pamoate (VISTARIL) 25 mg oral capsule Take 25-50 mg by mouth three times a day as needed (anxiety). Active metoprolol succinate, XL, (TOPROL XL) 25 mg oral extended release tablet 24 HR Take 12.5 mg by mouth once a day as needed (tachycardi a). Active multivitamin (CERTAVITE) 18-400 mg-mcg oral tablet Take 1 tablet by mouth once daily. 30 tablet 12/27/2021 12:10 PM CDT 12/28/2021 Active naltrexone (REVIA) 50 mg oral tablet Take 1 tablet (50 mg) by mouth once daily. 90 tablet 3 12/27/2021 12:10 PM CDT 12/27/2021 Active Active Problems Problem Noted Date Diagnosed Date Alcohol abuse with withdrawal 12/26/2021 Social History Tobacco Use Types Packs/Day Years Used Date Smoking Tobacco: Every Day Cigarettes 1 1 Smokeless Tobacco: Never Tobacco Cessation:Ready to Q uit: Not Asked; Counseling Given: Not Answered Alcohol Use Standard Drinks/Week Comments Not Currently 84 (1 standard drink = 0.6 oz pu re alcohol) Last drink Wednesday Comments Unknown Sex and Gender Information Value Date Recorded Sex Assigned at Not on file Legal Sex Female 8:08 PM CDT Gender Identity Not on file Sexual Orientation Not on file Last Filed Vital Signs Vital Sign Reading Time Taken Comments Blood Pressure 136/100 04/18/2023 6:00 PM JACKHAMMER OPERATOR Pulse 103 04/18/2023 6:45 PM JACKHAMMER OPERATOR Temperature 37.7 C (99.9 F) 04/18/2023 2:32 PM JACKHAMMER OPERATOR Respiratory Rate 18 04/18/2023 6:45 PM JACKHAMMER OPERATOR Oxygen Saturation 99% 04/18/2023 6:45 PM JACKHAMMER OPERATOR Inhaled Oxygen Concentration - - Weight 61.4 kg (135 lb 6.4 oz) 12/26/2021 2:26 A M CDT Height 165.1 cm (5' 5) 12/26/2021 2:26 AM CDT Body Mass Index 22.53 12/26/2021 2:26 AM CDT Plan of Treatment Health Maintenance Due Date Last Done Comments Hepatitis C Screening 1980 Lipid Screening 1980 Mammogram Screening 1980 Pap Smear 1980 Anxiety Screening (RIO-2) 01/25/1981 Depression Assessment (PHQ-2) 01/25/1981 Pneumococcal Vaccine (1 of 2 - PCV) 01/25/1999 Adult Tetanus Booster 01/30/2016 01/29/2006 COVID-19 Vaccine ( season) 2024, 09/09/2020 Influenza Vaccine (#1) 2024 07/22/2019, 2017 RSV Vaccines (1 - 1-dose 75+ series) 01/25/2055 Insurance [facility] Advance Directives For more information, please contact: [phone] * Full Code (Latest Code Status on File) Date Activated Date Inactivated Comments 12/26/2021 1:38 AM 12/27/2021 6:22 PM Question Answer Comments How was code status determined? Physician Cierra medina
--- OUTSIDE RECORDS SUMMARY | 2024-07-06 08:16 | XMS_ITS | Referral Summary ---
Author Organization [facility] Address [address] [place] [address] Care Team Providers Care Final Expense Agent Name Role Phone Unavailable Primary Care Provider [...] Comments Blood Pressure 136/100 04/18/2023 6:00 PM VEGETABLE TESTER Pulse 103 04/18/2023 6:45 PM VEGETABLE TESTER Temperature 37.7 C (99.9 F) 04/18/2023 2:32 PM VEGETABLE TESTER Respiratory Rate 18 04/18/2023 6:45 PM VEGETABLE TESTER Oxygen Saturation 99% 04/18/2023 6:45 PM VEGETABLE TESTER Inhaled Oxygen Concentration - - Weight 61.4 kg (135 lb 6.4 oz) 12/26/2021 2:26 A M CDT Height 165.1 cm (5' 5) 12/26/2021 2:26 AM CDT Body Mass Index 22.53 12/26/2021 2:26 AM CDT Plan of Treatment Not on file [facility] Advance Directives For more information, please contact: [phone] * Full Code (Latest Code Status on File) Date Activated Date Inactivated Comments 12/26/2021 1:38 AM 12/27/2021 6:22 PM Question Answer Comments How was code status determined? Physician Cierra medina
--- OUTSIDE RECORDS SUMMARY | 2024-07-06 08:16 | XMS_ITS | CONTINUITY OF CARE DOCUMENT ---
Author Name User, QIE Address [address] [place] [address] [address] Address [address] [place] [address] [address] [place] [address] Phone [phone] Care Team Providers Care Production Line Manager Name Role Phone User, QIE Unavailable Unavailable
--- OUTSIDE RECORDS SUMMARY | 2024-07-06 08:17 | XMS_ITS | Encounter Summary ---
Author Organization [facility] Address [address] [address] Phone Care Team Providers Care Sales Person Name Role Phone Unavailable Primary Care Provider Unavailabl e Reason for Visit * Reason Comments Alcohol, Acute Encounter Details Date Type Department Care Team (Late st Contact Info) Description 06/03/2024 11:36 AM TRANSFER MAN - 06/03/2024 9:22 PM [facility] Emergency [facility] [address] [place] [id number] Roni Hunt, PARanjit [address] [place] [address] Hiren Heard PA-C [address] [place], [place] [address] Alcohol abuse (Primary Dx); COVID-19 Discharge Disposition: Home and/or Self Care Social History Tobacco Use Types Packs/Day Years [...] your family members or any other acquaintances? No 2023 Comments No Sex and Gender Information Value Date Recorded Sex Assigned at Female 01/05/2021 12:17 PM CDT Legal Sex Female 8:45 AM CDT Gender Identity Female 01/05/2021 12:17 PM CDT Sexual Orientation Not on file documented as of this encounter Last Filed Vital Signs Vital Sign Reading Time Taken Comments Blood Pressure 115/85 06/03/2024 7:55 PM TRANSFER MAN Pulse 90 06/03/2024 6:30 PM TRANSFER MAN Temperature 36.6 C (97.9 F) 06/03/2024 11:29 AM TRANSFER MAN Respiratory Rate 17 06/03/2024 5:45 PM TRANSFER MAN Oxygen Saturation 94% 06/03/2024 5:45 PM TRANSFER MAN Inhaled Oxygen Concentration - - Weight 57.6 kg (127 lb) 06/03/2024 11:29 AM TRANSFER MAN Height 165.1 cm (5' 5) 06/03/2024 11:29 AM TRANSFER MAN Body Mass Index 21.13 06/03/2024 11:29 AM TRANSFER MAN documented in this encounter Functional Status * Patient's Vision Adequate to Safely Complete Daily Activities Answer Date of Assessment Author Yes 11/04/2023 10:37 PM CDT Valentín Enciso RN * Patient's Memory Adequate to Safely Complete Daily Activities Answer Date of Assessment Author Yes 11/04/2023 10:37 PM CDT Valentín Enciso RN documented as of this encounter Mental Status * Patient's Judgment Adequate to Safely Complete Daily Activities Answer Entry Date Author No 11/04/2023 10:37 PM CDT Valentín Enciso RN documented in this encounter Discharge Instructions * Discharge Instructions* iHren Heard PA-C - 06/03/2024 5:07 PM TRANSFER MAN Avoid hydroxyzine while taking paxlovid if he would like to take this antiviral for your COVID-19 infection. Please avoid excessive alcohol intake as you are able. Please follow-up with primary care to discuss next steps and best managing this. SFER MAN SFER MAN documented in this encounter Medications at Time of Discharge TAPENTADOL HCL OR Take 25 mg by mouth one time a day. tretinoin (Retin-A) 0.025 % creamIndications :Neoplasm of skin Apply topically one time a day. Apply a pea sized amount to entire face; start out 2-3 times a week and gradually increase as skin tolerates 45 g 5 04/09/2022 hydrOXYzine HCl (ATARAX) 25 MG tablet Take 25-50 mg by mouth three times a day as needed for Anxiety. metoprolol succinate (Toprol-XL) 25 MG 24 hour extended-release tablet Take 12.5 mg by mouth one time a day as needed (prn SVT). PT takes as needed for SVT 12/31/2020 documented as of this encounter Ordered Prescriptions Prescription Sig Dispense Quantity Refills Last Filled Start Date End Date nirmatrelvir-riton avir EUA 300/100 (Paxlovid, 300/100,) 20 x 150 MG & 10 x 100MG tablet therapy pack Take 3 tablets in the morning and 3 tablets in the evening until gone, following package instructions. 30 Tablet 06/03/2024 documented in this encounter Discharge Disposition Disposition Code Departure Means Destination Comment s Home and/or Self [facility] Pt left via Uber. Deemed clinically sober. documented in this encounter ED Notes * Hiren Heard PA-C - 06/03/2024 6:33 PM CST ED PROVIDER - TRANSFER OF CARE NOTE Name: Christopher Peralta Date of : 1980 ED COURSE, MEDICAL DECISION MAKIN-year-old signed out to me at shift change found to have COVID-19 as well as elevated D-dimer andalcohol intoxication. Her breathalyzer initially was 0.342. She was somewhat agitated initially andreceived Ativan, Zyprexa and Benadryl and slept here. 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 We also did discuss detox however patient did not want to pursue this. Previous provider did prescribe Paxlovid for her COVID- 19. She will return if any new or worsening symptoms . Her ready mix truck driver that was going to come get her unfortunately declined doing so. She became very anxious, hyperventilating and nauseous with dry heaving in the restroom. She continues to not have any obvious withdrawal tremulousness or significant hypertension or tachycardia. Shewas given some Ativan and Zofran for symptomatic relief and anxiety. We did perform an another breathalyzer and this came back minimally elevated at 0.112. She is ambulatory and clinically sober. Will continue to allow her to arrest here however anticipate she potentially could discharge if she remains without withdrawal symptoms and able to manage her symptoms at home. Patient now clinically sober, under 0.08, ambulatory with no evidence of withdrawal symptoms. Patient requesting Uber. I think at this point that it is reasonable. We discussed her COVID diagnosis, appropriate symptom management and strategies for alcohol cessation. Final Clinical Impression: (F10.10) Alcohol abuse (primary encounter diagnosis) (U07.1) COVID-19 Hiren Heard PA-C 06/03/24 1835 Hiren Heard PA-C 06/03/242103 SFER MAN SFER MAN * Amber Santos RN - 06/03/2024 6:17 PM CST Pt up to bathroom, requesting toast and juice- is calling a friend for a ride. Slightly unsteady w ambulation SFER MAN * Amber Santos RN - 06/03/2024 5:[address] [facility] accepted patient, she will need to wear a mask. Report given to Violeta PARSONS [phone] call with ETA prior to leaving SFER MAN * Roni Hunt PA-C - 06/03/2024 2:29 PM CST ED PROVIDER NOTE Name: Christopher Peralta Date of : 1980 SUBJECTIVE: Chief Complaint: Chief Complaint Patient presents with Alcohol, Acute History of Present Illness: Christopher Peralta is a 44 year old female with past medical history significant for alcoholism, depression, anxiety, PSVT who presents for evaluation of alcohol abuse, binge drinking for the last 6 days, she was sober for the last 6 months up until then. She has a history of alcohol withdrawal and hasbeen through treatment 3 times. She complains of shortness of breath. Feels very panicky. She has had some vomiting. Denies diarrhea or hematemesis. Although thinks she threw up a little bit of blood2 days ago. She has really had no p.o. solids intake for nearly 1 week, according to her friend whobrought her in today. Patient lives alone. She denies suicide ideation. Her friend corroborates this. MEDICAL, SOCIAL, FAMILY HISTORY: Medical, social, and family history reviewed with patient and in chart. Social History Tobacco Use Smoking status: Every Day Current packs/day: 1.00 Average packs/day: 1 pack/day for 20.0 years (20.0 ttl pk-yrs) Types: Cigarettes Smokeless tobacco: Never Tobacco comments: Pt has been discussing quitting smoking with her personal doctor Vaping Use Vaping status: Never Used Substance Use Topics Alcohol use: Yes Alcohol/week: 12.0 standard drinks of alcohol Types: 12 Cans of beer per week Comment: Hx of ETOH abuse, states she is drinking 1 litre of vodka per day 08/15/23 Drug use: Never Patient Active Problem List Diagnosis Alcoholism (HCC) Alcoholic intoxication with complication (HCC) Alcohol abuse with withdrawal (HCC) Depressive disorder Social anxiety disorder Alcohol abuse Alcohol dependence (HCC) Alcohol use disorder, moderate, in controlled environment (HCC) 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 Taking? Tapentadol HCl 100 MG Tablet Yes No Sig: Take 6.25 mg by mouth every four hours as needed for Pain (also used for depression). albuterol HFA (Proair HFA, Ventolin HFA) 108 (90 Base) MCG/ACT inhalation aerosol No No Sig: Inhale 1-2 Puffs into the lungs every four hours as needed for Shortness of Breath, Wheezing or Cough. Shake before using. hydrOXYzine HCl (ATARAX) 25 MG tablet Yes No Sig: Take 25-50 mg by mouth three times a day as needed for Anxiety. metoprolol succinate (Toprol-XL) 25 MG 24 hour extended-release tablet Yes No Sig: Take 12.5 mg by mouth one time a day as needed (prn SVT). PT takes as needed for SVT tretinoin (Retin-A) 0.025 % cream No No Sig: Apply topically one time a day. Apply a pea sized amount to entire face; start out 2-3 times aweek and gradually increase as skin tolerates Facility-Administered Medications: None PHYSICAL EXAMINATION: Vital Signs: Vital Signs: Initial Vitals Most Recent Vitals Temp: 97.9 ??F (36.6 ??C) (06/03/24 1129) Temp: 97.9 ??F (36.6 ??C) (06/03/24 112) Pulse: 106 (06/03/24 1129) Pulse: 98 (06/03/24 1609) Resp: 24 (06/03/24 1129) Resp: 11 (06/03/24 1609) BP: 135/80 (06/03/24 1129) BP: 99/77 (06/03/24 1607) SpO2: 96 % (06/03/24 1129) SpO2: 96 % (06/03/24 1609) Gen: Anxious, at times hyperventilating, alert, talkative. Slurred speech, smells heavily of alcohol. Disheveled. HEENT: AT/NC, PERRL, EOMI. No nystagmus. Nose without drainage. Mouth clear, no lesions. Throat clear, no erythema or swelling Neck: Supple, FROM. No apparent masses. No meningismus. Lungs: CTA bilaterally, no rales or wheezes. Chest: Atraumatic Heart: RRR without murmur. Peripheral pulses intact. Abdomen: Soft, Nontender. No guarding. Back: Atraumatic. Extremities: NELSON. No edema or tenderness Neuro: Nonfocal. Alert and Oriented to person, place and time. Skin: Warm, dry ED COURSE, MEDICAL DECISION MAKING: Clinical findings are suggestive of but not limited to the following diagnoses and conditions: Alcohol intoxication, alcohol withdrawal, dehydration, acidosis, electrolyte disorder panic attack, PE, ACS/MD, pneumonia, viral syndrome I considered the following labs/ imaging and work-up in the emergency department: Comprehensive labs, EKG, chest imaging. EKG was performed at 1312 hrs., I reviewed this and it reveals normal sinus rhythm, rate 91, QTc 487. External consultation: Discussion of management with another provider (specialty): I reviewed the following outside records and spoke with outside sources to obtain further history with the patient's permission (if required): Complicating factors: Care impacted by chronic illness: As noted above Care affected by social determinants of health: Alcoholic, increased vulnerability due to chemical dependency I evaluated the patient in room 21. She presents today acutely intoxicated, dyspnea, concern for panic attack, urology however cannot exclude other underlying pathology. Will obtain screening labs. D-dimer was elevated. Will proceed with CT chest PE protocol. Patient very anxious, did attempt to get out of the bed to leave, however was encouraged to stay in the bed which she did. She is given Zyprexa, Benadryl and Ativan IV. The COVID test came back positive. Patient later admits to having somesore throat and a cough in the last 2 days. Elevated D-dimer, the patient underwent CT chest PE protocol as noted above and this was negative for PE or acute findings. Patient is very somnolent at this time, apparently has not been eating in the last week, she did have vomiting 2 days ago with somereported hematemesis. She is not sure if she can stay with her friend, she will call. Will need to do a p.o. challenge and see if she can keep this down. Patient's care is signed out to Hiren Heard PA-C at change of shift. Data: All laboratory data, imaging, and EKGs were interpreted independently and reviewed as below. Labs Reviewed COMPREHENSIVE METABOLIC PANEL - Abnormal; Notable for the following components: Result Value Aspartate Aminotransferase 79 (*) Alanine Aminotransferase 49 (*) Creatinine 0.50 (*) All other components within normal limits URINALYSIS, REFLEX TO CULTURE - Abnormal; Notable for the following components: Urine Appearance Slightly Cloudy (*) Urine Protein Trace (*) Urine Blood 3+ (*) Urine RBC's 2-8 (*) Urine Epithelial Cells Occasional (*) All other components within normal limits VENOUS BLOOD GASES - Abnormal; Notable for the following components: pH, Venous 7.46 (*) Base Excess, Venous 2.6 (*) All other components within normal limits D-DIMER - Abnormal; Notable for the following components: D-Dimer 1.37 (*) All other components within normal limits Narrative: Result is mg/L FEU (Fibrinogen Equivalent Units) D-Dimer is elevated in DVT,PE, and DIC, however, D-Dimer in NOT specific for DVT and PE and therefore, cannot be applied as a sole confirmatory marker. D-Dimer should be used as an aide in diagnosis. An [facility] laboratory study showed that the cutoff value of 0.5 mg/L FEU has a 100% negative predictivevalue SARS-COV-2/INFLUENZA A AND B/RESPIRATORY SYNCYTIAL VIRUS, MOLECULAR DETECTION - Abnormal; Notable for the following components: SARS-CoV-2 RNA (COVID-19) Detected (*) All other components within normal limits Narrative: Test detects target RNA by real-time polymerase chain reaction (PCR) on the [employer] GeneXpert System. Results from this test should not be used as the sole basis for treatment or other patient management decisions. HEMOGRAM - Normal MAGNESIUM - Normal LIPASE - Normal HCG, URINE QUALITATIVE - Normal POCT BREATHALYZER Imaging Results CT ANGIO CHEST PE (Final result) Result time 06/03/24 16:12:52 Final result by Pastora Nichols MD (06/03/24 16:12:52) Narrative: For Patients: As a result of the 21st Century Cures Act, medical imaging exams and procedure [...] MD @ 06/03/2024 4:12:52 PM Electronically Signed Procedure: Procedures FINAL CLINICAL IMPRESSION: No diagnosis found. Discharge Prescriptions Medication Sig Dispense Start Date End Date Auth. Provider nirmatrelvir-ritonavir EUA 300/100 (Paxlovid, 300/100,) 20 x 150 MG & 10 x 100MG tablet therapypack Take 3 tablets in the morning and 3 tablets in the evening until gone, following package instructions. 30 Tablet 06/03/2024 -- Roni Hunt PA-C Discharge Instructions Avoid hydroxyzine while taking paxlovid. ExitCare Instructions None Roni Hunt PA-C 06/03/24 1658 Roni Hunt PA-C 06/03/24 1708 SFER MAN SFER MAN * Amber Santos RN - 06/03/2024 11:56 AM CST Pt reports has been sober for 6 months up until she recently lost her job.Started drinking last Wednesday. Reports wanting to hurt herself yesterday but states she does not feel that way today. Did have a possible seizure 4 yrs ago while at detox. Pt has been to treatment in the past. SFER MAN * Lovely Lopez RN - 06/03/2024 11:27 AM CST Patient presents with complaints of alcohol intoxication by private car from Home accompanied by friend. Patients symptoms include: Friend brought patient into ED, states she has been drinking about 1 liter per day for the past week, states she hasn't been eating. Last drink about 1 hour ago, 2 shots. Patient states she is having a panic attack in triage. SFER MAN documented in this encounter Plan of Treatment Pending Results Name Type Priority Associated Diagnoses Date /Time POCT BREATHALYZER Point of Care Testing [place] 06/03/2024 11:55 AM TRANSFER MAN documented as of this encounter Procedures Procedure Name Priority Date/Time Associated Diagnosis Comments POCT BREATHALYZER [facility] 06/03/2024 9:0 5 PM TRANSFER MAN POCT BREATHALYZER [place] 06/03/2024 7:[address] ANGIO CHEST PE STAT 06/03/2024 3:4 3 PM TRANSFER MAN SARS-COV-2/INFLUENZA A AND B/RESPIRATORY SYNCYTIAL VIRUS, MOLECULAR DETECTION STAT 06/03/2024 1:30 PM TRANSFER MAN EKG 12-LEAD STAT 06/03/2024 1:12 PM TRANSFER MAN HEMOGRAM STAT 06/03/2024 1:12 PM TRANSFER MAN D-DIMER STAT 06/03/2024 1:12 PM TRANSFER MAN COMPREHENSIVE METABOLIC PANEL STAT 06/03/2024 12:52 PM TRANSFER MAN VENOUS BLOOD GASES STAT 06/03/2024 12 :52 PM TRANSFER MAN MAGNESIUM STAT 06/03/2024 12:52 PM TRANSFER MAN LIPASE STAT 06/03/2024 12:52 PM TRANSFER MAN URINALYSIS, REFLEX TO CULTURE STAT 06/03/2024 12:33 PM TRANSFER MAN HCG, URINE QUALITATIVE STAT 12:33 PM TRANSFER MAN POCT BREATHALYZER [place] 06/03/2024 11: 55 AM TRANSFER MAN documented in this encounter Results * POCT BREATHALYZER (06/03/2024 9:05 PM TRANSFER MAN) POC BREATHALYZER 0.07 06/03/2024 9:05 PM TRANSFER MAN us iHren Heard PA-C IP POINT OF CARE TEST ORDE RABLES Final Result * POCT BREATHALYZER (06/03/2024 7:37 PM TRANSFER MAN) POC BREATHALYZER 0.112 06/03/2024 7:37 PM TRANSFER MAN us Hiren Heard PA-C IP POINT OF CARE TEST ORDE RABLES Final Result * CT ANGIO CHEST PE (06/03/2024 3:43 PM TRANSFER MAN) Anatomical Region Laterality Modality Chest, Lung Computed Tomogra phy 06/03/2024 3:49 PM TRANSFER MAN Narrative 06/03/2024 4:12 PM TRANSFER MAN For Patients: As a result of the Century Cures Act, medical imaging exams and procedure [...] @ 06/03/2024 4:12:52 PM Electronically Signed Roni POLK CT ORDERABLES Final Result * (ABNORMAL) SARS-COV-2/INFLUENZA A AND B/RESPIRATORY SYNCYTIAL VIRUS, MOLECULAR DETECTION (06/03/2024 1:30 PM TRANSFER MAN) SARS-CoV-2 RNA (COVID-19) Detected(A) Not Detected 06/03/2024 2:14 PM TRANSFER MAN [facility] Influenza A Not Detected Not Detected 06/03/2024 2:14 PM TRANSFER MAN [facility] Influenza B Not Detected Not Detected 06/03/2024 2:14 PM TRANSFER MAN [facility] Respiratory Syncytial Virus Not Detected Not Detected 06/03/2024 2:14 PM TRANSFER MAN [facility] Swab ENTIRE NASOPHARYNX / Unknown Non-blood collection / Unknown 06/03/2024 1:30 PM TRANSFER MAN 06/03/2024 1:35 PM TRANSFER MAN Narrative [facility] - 06/03/2024 2:14 PM TRANSFER MAN Test detects target RNA by real-time polymerase chain reaction (PCR) on the [employer] GeneXpert System. Results from this test should not be used as the sole basis for treatment or other patient management decisions. Roni Hunt PA-C EC MICROBIOLOGY - GENERAL ORD ERABLES Final Result [facility] [address] [place] [address], [facility] [phone] * EKG 12-LEAD (06/03/2024 1:12 PM TRANSFER MAN) Pathologist [facility] Ventricular Rate 91 BPM RMCMUSE Atrial Rate 91 BPM RMCMUSE P-R Interval 150 ms RMCMUSE QRS Duration 82 ms RMCMUSE QT 396 ms RMCMUSE QTc 487 ms RMCMUSE P [place] 70 degrees RMCMUSE R [place] -43 degrees RMCMUSE T [place] 53 degrees RMCMUSE 06/03/2024 1:12 PM TRANSFER MAN 06/06/2024 6:09 PM TRANSFER MAN Narrative RMCMUSE - 06/06/2024 6:09 PM TRANSFER MAN Confirming Doc Rodger [place] Normal sinus rhythm Left axis deviation Prolonged QT Abnormal ECG When compared with ECG of 01-AUG-2023 20:01, Nonspecific T wave abnormality no longer evident in Inferior leads Procedure Note Provider, Rv Unknown - 06/06/2024 [address] Doc Rodger [place] Normal sinus rhythm Left axis deviation Prolonged QT Abnormal ECG When compared with ECG of 01-AUG-2023 20:01, Nonspecific T wave abnormality no longer evident in Inferior leads us Roni Hunt PA-C IP ECG ORDERABLES Final Resul t RMCMUSE * (ABNORMAL) D-DIMER (06/03/2024 1:12 PM TRANSFER MAN) Pathologist [facility] D-Dimer 1.37(H) 0.22 - 0.50 mg/L 06/03/2024 1:24 PM TRANSFER MAN [facility] Blood BLOOD SPECIMEN / Unknown Venipuncture / Unknown 06/03/2024 1:12 PM TRANSFER MAN 06/03/2024 1:14 PM TRANSFER MAN Narrative [facility] - 06/03/2024 1:24 PM TRANSFER MAN Result is mg/L FEU (Fibrinogen Equivalent Units) D-Dimer is elevated in DVT,PE, and DIC, however, D-Dimer in NOT specific for DVT and PE and therefore, cannot be applied as a sole confirmatory marker. D-Dimer should be used as an aide in diagnosis. An [facility] laboratory study showed that the cutoff value of 0.5 mg/L FEU has a 100% negative predictive value us Roni Hunt PA-C EC HEMATOLOGY ORDERABLES Tiffanie kinney Result [facility] [address] [phone] * HEMOGRAM (06/03/2024 1:12 PM TRANSFER MAN) WBC 4.4 4.0 - 11.0 10*3/uL 06/03/2024 1:16 PM [facility] RBC 4.99 3.80 - 5.20 10*6/uL 06/03/2024 1:16 PM [facility] HGB 14.9 12.0 - 16.0 g/dl 06/03/2024 1:16 PM [facility] HCT 42.9 35.0 - 47.0 % 06/03/2024 1:16 PM [facility] MCV 86.0 80 - 98 fL 06/03/2024 1:16 PM [facility] MCH 29.9 27.0 - 34.0 pg 06/03/2024 1:16 PM [facility] MCHC 34.7 32 - 36 g/dl 06/03/2024 1:16 PM [facility] PLT 258 150 - 420 10*3/uL 06/03/2024 1:16 PM [facility] RDW-CV 13.1 11.6 - 14.4 % 06/03/2024 1:16 PM [facility] RDW-SD 40.8 36.5 - 46.3 fL 06/03/2024 1:16 PM [facility] Blood BLOOD SPECIMEN / Unknown Venipuncture / Unknown 06/03/2024 1:12 PM TRANSFER MAN 06/03/2024 1:14 PM TRANSFER MAN Roni Hunt PA-C EC HEMATOLOGY ORDERABLES Tiffanie l Result [facility] [address] [place] [address], [facility] [phone] * (ABNORMAL) VENOUS BLOOD GASES (06/03/2024 12:52 PM TRANSFER MAN) pH, Venous 7.46(H) 7.35 - 7.45 06/03/2024 12:58 PM TRANSFER MAN [facility] pCO2, Venous 37 34 - 50 mmHg 06/03/2024 12:58 PM TRANSFER MAN [facility] pO2, Venous 48 24 - 48 mmHg 06/03/2024 12:58 PM [facility] Bicarbonate (HCO3), Venous 26.3 23 - 30 mmol/L 06/03/2024 12:58 PM TRANSFER MAN [facility] O2 Saturation, Venous Calculated 86.7 No Established Reference Range % 06/03/2024 12:58 PM TRANSFER MAN [facility] Base Excess, Venous 2.6(H) 0 - 2 mmol/L 06/03/2024 12:58 PM TRANSFER MAN [facility] Amount Oxygen (Liters) 0 L 06/03/2024 12:58 PM [facility] Amount Oxygen (%) 0 % 06/03/2024 12:58 PM [facility] Blood WHOLE BLOOD SPECIMEN / Unknown Venipuncture / Unknown 06/03/2024 12:52 PM TRANSFER MAN 06/03/2024 12:55 PM TRANSFER MAN Roni Hunt PA-C EC CHEMISTRY ORDERABLES Final Result [facility] [address] [place], [place] [address] [phone] * LIPASE (06/03/2024 12:52 PM TRANSFER MAN) Lipase 230 23 - 300 U/L 06/03/2024 1:26 PM TRANSFER MAN [facility] Blood BLOOD SPECIMEN / Unknown Venipuncture / Unknown 06/03/2024 12:52 PM TRANSFER MAN 06/03/2024 12:55 PM TRANSFER MAN Roni Hunt PA-C EC CHEMISTRY ORDERABLES Final Result Performing Organization Address [facility] Co de Phone Number [facility] [address] [phone] * MAGNESIUM (06/03/2024 12:52 PM TRANSFER MAN) Magnesium 2.1 1.6 - 2.3 mg/dL 06/03/2024 1:28 PM TRANSFER MAN [facility] Comment:Specimen slightly he molyzed. Blood BLOOD SPECIMEN / Unknown Venipuncture / Unknown 06/03/2024 12:52 PM TRANSFER MAN 06/03/2024 12:55 PM TRANSFER MAN Roni Hunt PA-C EC CHEMISTRY ORDERABLES Final Result Performing Organization Address [facility] Co de Phone Number [facility] [address] [phone] * (ABNORMAL) COMPREHENSIVE METABOLIC PANEL (06/03/2024 12:52 PM TRANSFER MAN) Sodium 138 135 - 144 mmol/L 06/03/2024 1:28 PM TRANSFER MAN [facility] Potassium 3.6 3.4 - 5.1 mmol/L 06/03/2024 1:28 PM TRANSFER MAN [facility] Comment:Specimen slightly he molyzed. Chloride 100 98 - 107 mmol/L 06/03/2024 1:28 PM TRANSFER MAN [facility] Carbon Dioxide 24 22 - 30 mmol/L 06/03/2024 1:28 PM [facility] Calcium 8.6 8.6 - 10.3 mg/dL 06/03/2024 1:28 PM TRANSFER MAN [facility] Alkaline Phosphatase 81 38 - 126 U/L 06/03/2024 1:28 PM [facility] Comment:Specimen slightly he molyzed. Aspartate Aminotransferase 79(H) 14 - 36 U/L 06/03/2024 1:28 PM [facility] Comment:Specimen slightly he molyzed. Alanine Aminotransferase 49(H) <35 U/L 06/03/2024 1:28 PM [facility] Glucose 94 74 - 100 mg/dL 06/03/2024 1:28 PM [facility] Blood Urea nitrogen 12 7 - 17 mg/dL 06/03/2024 1:28 PM [facility] Creatinine 0.50(L) 0.52 - 1.04 mg/dL 06/03/2024 1:28 PM [facility] Protein, Total 7.8 6.3 - 8.2 g/dL 06/03/2024 1:28 PM [facility] Albumin 4.8 3.5 - 5.0 g/dL 06/03/2024 1:28 PM [facility] Bilirubin, Total 0.6 0.2 - 1.3 mg/dL 06/03/2024 1:28 PM [facility] Globulin 3.0 1.4 - 4.8 g/dL 06/03/2024 1:28 PM [facility] Anion Gap 14 5 - 15 mmol/L 06/03/2024 1:28 PM [facility] Glomerular Filtration Rate >60 >60 mL/min/1. 73 m*2 06/03/2024 1:28 PM [facility] Comment:This calculation use s CKD-EPI 2020 equation; it has not been validated in women. Blood BLOOD SPECIMEN / Unknown Venipuncture / Unknown 06/03/2024 12:52 PM TRANSFER MAN 06/03/2024 12:55 PM [facility] Roni Hunt PA-C EC CHEMISTRY ORDERABLES Final Result [facility] [address] [phone] * HCG, URINE QUALITATIVE (06/03/2024 12:33 PM TRANSFER MAN) hCG, Urine Qualitative Negative Negative 06/03/2024 12:42 PM TRANSFER MAN [facility] Urine URINE SPECIMEN COLLECTION, CLEAN CATCH / Unknown Non-blood collection / Unknown 06/03/2024 12:33 PM TRANSFER MAN 06/03/2024 12:37 PM TRANSFER MAN Roni Hunt PA-C EC URINE ORDERABLES Final Res ult [facility] [address] [phone] * (ABNORMAL) URINALYSIS, REFLEX TO CULTURE (06/03/2024 12:33 PM TRANSFER MAN) UA Color Yellow Light Yellow, Yellow 06/03/2024 1:03 PM [facility] Urine Appearance Slightly Cloudy(A) Clear 06/03/2024 1:03 PM [facility] Urine Specific [place] <=1.005 1.005 - 1.030 06/03/2024 1:03 PM [facility] Urine pH 5.5 5.0 - 8.0 06/03/2024 1:03 PM [facility] Urine Leukocyte Esterase Negative Negative 06/03/2024 1:03 PM [facility] Urine Nitrates Negative Negative 06/03/2024 1:03 PM [facility] Urine Protein Trace(A) Negative 06/03/2024 1:03 PM [facility] Urine Glucose Negative Negative 06/03/2024 1:03 PM [facility] Urine Ketones Negative Negative 06/03/2024 1:03 PM [facility] Urine Urobilinogen Normal Normal 06/03/2024 1:03 PM [facility] Urine Bilirubin Negative Negative 1:03 PM [facility] Urine Blood 3+(A) Negative 06/03/2024 1:03 PM TRANSFER MAN [facility] Urine WBC's 0-5 0 - 5 /HPF 06/03/2024 1:03 PM TRANSFER MAN [facility] Urine RBC's 2-8(A) 0 - 2 /HPF 06/03/2024 1:03 PM TRANSFER MAN [facility] Urine Epithelial Cells Occasional( A) Negative /HPF 06/03/2024 1:03 PM TRANSFER MAN [facility] Urine Bacteria Negative Negative /HPF 06/03/2024 1:03 PM TRANSFER MAN [facility] Urine URINE SPECIMEN COLLECTION, CLEAN CATCH / Unknown Non-blood collection / Unknown 06/03/2024 12:33 PM TRANSFER MAN 06/03/2024 12:37 PM TRANSFER MAN us Roni Hunt PA-C EC URINE ORDERABLES Final Res ult Performing Organization Address City/State/[facility] Co de Phone Number [facility] [address] [place] [address] documented in this encounter Visit Diagnoses Diagnosis Alcohol abuse- Primary Alcohol abuse, unspecified COVID-19 documented in this encounter Administered Medications Inactive Administered Medications Medication Order MAR Action Action Date Dose Rate Site diphenhydrAMINE (Benadryl) injection 25 mg 25 mg, IV Push, ONCE, 1 dose, On 06/03/24 at 1300 Given 06/03/2024 1:08 PM TRANSFER MAN 25 mg infuvite adult 10 mL, thiamine (B-1) 100 mg, folic acid (Folvite) 1 mg, magnesium sulfate 2 g in sodium chloride 0.9% (NS) 1,000 mL infusion 1,000 mL, Intravenous, at 1,000 mL/hr, ONCE, 1 dose, On 06/03/24 at 1300 New Bag 06/03/2024 1:22 PM TRANSFER MAN 1,000 mL 1000 mL /hr iohexol (Omnipaque) 350 MG/ML 100 mL 100 mL, IV Push, ONCE, 1 dose, On 06/03/24 at 1530 Given 06/03/2024 3:43 PM TRANSFER MAN 100 mL LORazepam (Ativan) injection 0.5 mg 0.5 mg, IV Push, ONCE, 1 dose, On 06/03/24 at 1300 Given 06/03/2024 1:11 PM TRANSFER MAN 0.5 mg LORazepam (Ativan) injection 1 mg 1 mg, IV Push, ONCE, 1 dose, On 06/03/24 at 1930 Given 06/03/2024 7:50 PM TRANSFER MAN 1 mg OLANZapine (Zyprexa) injection 5 mg 5 mg, IV Push, ONCE, 1 dose, On 06/03/24 at 1300 Given 06/03/2024 1:10 PM TRANSFER MAN 5 mg ondansetron (Zofran) injection 4 mg 4 mg, IV Push, EVERY 15 MIN NEEDED, 2 doses, Starting on 06/03/24 at 1923, Until 06/04/24 at 0123, Nausea, Vomiting Given 06/03/2024 7:50 PM TRANSFER MAN 4 mg documented in this encounter Active and Recently Administered Medications Times are shown in TRANSFER MAN. Scheduled Medication Order 06/01/2024 06/02/2024 06/03/2024 diphenhydrAMINE (Benadryl) injection 25 mg (COMPLETED) 25 mg, IV Push, ONCE, 1 dose, On 06/03/24 at 1300 1308 (Given - Provid er: Amber Santos RN) infuvite adult 10 mL, thiamine (B-1) 100 mg, folic acid (Folvite) 1 mg, magnesium sulfate 2 g in sodium chloride 0.9% (NS) 1,000 mL infusion (COMPLETED) 1,000 mL, Intravenous, at 1,000 mL/hr, ONCE, 1 dose, On 06/03/24 at 1300 1322 (New Bag - Prov ider: Amber Santos RN)[id number] (Stopped - Provider: Amber Santos RN) iohexol (Omnipaque) 350 MG/ML 100 mL (COMPLETED) 100 mL, IV Push, ONCE, 1 dose, On 06/03/24 at 1530 1543 (Given - Provid er: Ren Hanley) LORazepam (Ativan) injection 0.5 mg (COMPLETED) 0.5 mg, IV Push, ONCE, 1 dose, On 06/03/24 at 1300 1311 (Given - Provid er: Amber Santos RN) LORazepam (Ativan) injection 1 mg (COMPLETED) 1 mg, IV Push, ONCE, 1 dose, On 06/03/24 at 1930 1950 (Given - Provid er: Francisco Domínguez, JAQUELINE) OLANZapine (Zyprexa) injection 5 mg (COMPLETED) 5 mg, IV Push, ONCE, 1 dose, On 06/03/24 at 1300 1310 (Given - Provid er: Amber Santos RN) PRN Medication Order 06/01/2024 06/02/2024 06/03/2024 ondansetron (Zofran) injection 4 mg 4 mg, IV Push, EVERY 15 MIN NEEDED, 2 doses, Starting on 06/03/24 at 1923, Until 06/04/24 at 0123, Nausea, Vomiting 1950 (Given - Provid er: Francisco Domínguez RN) documented in this encounter Orders Nursing Count Last Ordered Date First Orde red Date INSERT PERIPHERAL IV 1 06/03/2024 documented in this encounter Additional Health Concerns Infection Onset Date Last Indicated Resolved Time R/O Respiratory Pathogens 06/03/2024 06/03/2024 2:14 PM TRANSFER MAN R/O COVID-19 06/03/2024 06/03/2024 06/03/2024 2:14 PM TRANSFER MAN COVID-19 Confirmed 06/03/2024 06/03/2024 9:26 AM TRANSFER MAN documented as of this encounter
--- OUTSIDE RECORDS SUMMARY | 2024-07-06 08:17 | XMS_ITS | Encounter Summary ---
Author Organization [facility] Address [address] [address] Phone Care Team Providers Care Junior Media Buyer Name Role Phone Unavailable Primary Care Provider Unavailabl e Encounter Details Date Type Department Care Team (Latest Contact Info) Description 06/03/2024 Travel Social History Tobacco Use Types Packs/Day Years Used Date Smoking Tobacco: Every Day Cigarettes 1 20 Smokeless Tobacco: Never Comments:Pt has been discuss ing quitting smoking with her personal doctor Alcohol Use Standard Drinks/Week Comments Yes 12 (1 standard drink = 0.6 oz pure alcohol) Hx of ETOH abuse, states she is drinking 1 litre of vodka per day 08/15/23 [facility] Custom IPV Answer Date Recorded Do [...] Valentín Enciso RN documented in this encounter Plan of Treatment Not on file documented as of this encounter Visit Diagnoses Not on filedocumented in this encounter Additional Health Concerns Infection Onset Date Last Indicated Resolved Time R/O Respiratory Pathogens 06/03/2024 06/03/2024 2:14 PM FLIGHT DATA TECHNICIAN R/O COVID-19 06/03/2024 06/03/2024 06/03/2024 2:14 PM FLIGHT DATA TECHNICIAN COVID-19 Confirmed 06/03/2024 06/03/2024 9:26 AM FLIGHT DATA TECHNICIAN documented as of this encounter
--- OUTSIDE RECORDS SUMMARY | 2024-07-06 08:17 | XMS_ITS | Clinical Summary ---
Author Organization [employer] Address [address] [place] [address] Care Team Providers Care Seo Analyst Name Role Phone No Primary/Referring, Phy Primary Care Provider Unavailable Source Comments You are receiving this document as you are listed as the primary care provider,follow-up provider, or the patient has been referred to you for consultation.This is in compliance with the Medicare and[facility] EHR Incentive Program,which states Providers who transition their patient to another setting of careor provider of care or refers their patient to another provider of care shouldprovide summary care record for each transition of care or referral. [employer] Allergies No known active allergies Medications Medication Sig Dispensed Refills Start Date End Date Status naloxone (NARCAN) 4 MG/0.1ML nasal spray Place 1 [place] (4 mg) into one nostril as needed (for suspected overdose). Call 911. Repeat in opposite nostril in 3 minutes if no or minimal response. 2 Each 06/27/19 25 Active mirtazapine (REMERON) 7.5 MG tabletIndications: Major Depressive Disorder Take 1 Tablet (7.5 mg) by mouth daily at bedtime. Indications: Major Depressive Disorder 90 Tablet 3 06/28/19 25 026 Active melatonin 3 MG tabletIndications: Depression,Insomni a Take 2 Tablets (6 mg) by mouth daily at bedtime. Indications: Depression, Trouble Sleeping 100 Tablet 3 06/28/19 25 Active aspirin 81 MG chewable tabletIndications: Cardiomyopathy Chew and swallow 1 Tablet (81 mg) by mouth daily. Indications: Cardiomyopathy 100 Tablet 3 06/28/19 Active doxycycline monohydrate (MONODOX) 100 MG capsuleIndications :STD Take 1 Capsule (100 mg) by mouth every 12 hours. Indications: STD 3 Capsule 06/28/19 Active apixaban (ELIQUIS) 5 MG tabletIndications: Venous Thromboembolism Managed by outside facility/provider Indications: Venous Thromboembolism 07/03/19 Active hydrOXYzine pamoate (VISTARIL) 25 MG capsule Take 1-2 Capsules (25-50 mg) by mouth three times a day as needed. 08/29/19 025 Discontinued LORazepam (ATIVAN) 0.5 MG tablet Take 1 Tablet by mouth three times a day. 04/14/20 025 Discontinued Multiple Vitamins-Minerals (CENTROVITE) 12/28/19 025 Discontinued naltrexone (REVIA) 50 MG tablet Take 50 mg by mouth daily. 12/28/19 025 Discontinued norethindrone-ethi nyl estradiol (LOESTRIN) 1mg-20mcg tablet Take 1 Tablet by mouth daily. 025 Discontinued norethindrone-ethi nyl estradiol (LOESTRIN) 1mg-20mcg tablet Take by mouth. 10/30/19 025 Discontinued Tapentadol HCl 100 MG Take by mouth. 025 Discontinued ondansetron (ZOFRAN-ODT) 4 MG disintegrating tablet Take 1 Tablet (4 mg) by mouth every 8 hours as needed for Nausea. 12 Tablet 01/25/20 025 Discontinued metoprolol succinate (TOPROL XL) 25 MG 24 hour release tablet Take one-half tablet (12.5 mg) by mouth daily for 10 days. 5 Tablet 09/08/19 025 Discontinued ALPRAZolam (XANAX) 0.25 MG tablet 1 tab po q 6-8 hrs prn palpitation 10 Tablet 05/24/20 025 Discontinued apixaban (ELIQUIS) 5 MG tablet Take 1 Tablet (5 mg) by mouth two times a day. 1 Tablet 06/27/19 025 Discontinued(* Med change OR same med OR reorder, new dose/direction s) apixaban (ELIQUIS) 5 MG tabletIndications: Venous Thromboembolism Take 2 Tablets (10 mg) by mouth two times a day for 6 days, THEN 1 Tablet (5 mg) two times a day. Indications: Venous Thromboembolism. 744 Tablet 06/28/19 25 025 Discontinued(* Med change OR same med OR reorder, new dose/direction s) Active Problems Problem Noted Date Diagnosed Date Opioid use 06/27/2024 Opioid withdrawal 06/27/2024 Other chronic pain 06/27/2024 Tobacco use disorder 06/26/2024 Methamphetamine use 06/26/2024 Alcohol withdrawal syndrome without complication 06/26/2024 Transaminitis 06/26/2024 Hepatic steatosis 06/26/2024 Alcohol use disorder, severe, dependence 025 Acute systolic congestive heart failure 06/26/19 Acute pulmonary embolism 06/26/2024 Social anxiety disorder 06/26/2024 Substance induced mood disorder 06/26/2024 Alcohol dependence with withdrawal, uncomplicate d 06/25/2024 Elevated troponin 06/25/2024 Varicose vein 05/05/2012 Hemorrhoids in 05/05/2012 Hx LEEP (loop electrosurgica l excision procedure), cervix, 01/21/2012 Overview (01/08/2016): 2006. following delivery was at 35 weeks [place] History of abnormal cervical Pap smear Overview (01/08/2016): LEEP Resolved Problems Problem Noted Date Diagnosed Date Resolved Date Abnormal ultrasound 03/17/2012 Overview (01/27/2017): trisomy 21 risk 1:375, level 2 ordered. Tri 18 risk 1: 6630 ; intracardiac echogenic focus Encounter for supervision of other normal 12/17/2011 10/03/2014 Overview (01/27/2017): Supervision of other normal Late care 12/17/2011 2 Nausea and vomiting in 12/17/2011 10/03/2014 Encounters Date Type Department Care Team Description 07/03/2024 Telephone [facility] [id number] [address] [place] [phone] No Primary/Referri ng, Phy Anticoagulation: DOAC 07/01/2024 Nurse Triage [facility] [address] [place] [address] Unassigned, Provider HEARTBEAT,IRREGULAR 06/26/2024 3:45 PM ZINC FURNACE CHARGER Ancillary Procedure [facility] [address] [place] [address] 06/26/2024 1:10 AM ZINC FURNACE CHARGER Ancillary Procedure [facility] [address] [place] [address] 06/25/2024 7:40 PM ZINC FURNACE CHARGER Ancillary Procedure [facility] [address] [place] [address] 06/25/2024 6:25 PM ZINC FURNACE CHARGER Ancillary Procedure [facility] [address] [place] [address] 06/25/2024 4:28 PM ZINC FURNACE CHARGER - 06/28/2024 2:32 PM ZINC FURNACE CHARGER Hospital Encounter RH S6 [address] [place] [address] Aminta Hernandez MD Hagi Aden, MD Krista Vick Jeffrey A, MD Boyle, Carrie Darnell MD Near syncope (Primary Dx); Alcohol withdrawal syndrome with complication (HRC); Non-ST elevation (NSTEMI) myocardial infarction (HRC); Alcohol dependence with withdrawal, uncomplicated (HRC); Elevated troponin; Acute pulmonary embolism without acute cor pulmonale, unspecified pulmonary embolism type (HRC); Stress-induced cardiomyopathy; Opioid withdrawal (HRC); Acute systolic congestive heart failure (HRC) Discharge Disposition: Home from Last 3 Months Immunizations Name Administration Dates Next Due Flu Vac Preserv Free (3+yrs) 02/18/2012 Influenza IIV4 (Quadrivalent) 0.5mL (39552) 03/08 Rho(D) - IG, IM 04/14/2012,11/09/2011,08/23/2008 TDAP (ADACEL) 01/29/2006 Td (7+ yrs) 01/12/2018,01/29/1994 Family History Medical History Relation Name Comments Cancer Maternal Grandfather melanom a Heart Disease Maternal Grandfather Diabetes Paternal Grandfather Heart Attack Paternal Grandfather Diabetes Paternal Grandmother Thyroid Disorder Sister 1 Cancer, Breast Negative Family History Cancer, Colon Negative Family History Cancer, Ovary Negative Family History Osteoporosis Negative Family History Relation Name Status Comments Father Alive Mother Alive Hx of Brain Ane urysms Brother Alive Maternal Grandfather Maternal Grandmother Alive Paternal Grandfather Paternal Grandmother Sister 1 Alive Sister 2 Alive Sister 3 Alive Social History Tobacco Use Types Packs/Day Years Used Date Smoking Tobacco: Some Days Cigarettes Last attempted to quit: 11/06/2011 Smokeless Tobacco: Never Comments:Smoking History Pac ks/day: Alcohol Use Standard Drinks/Week Comments No 0 (1 standard drink = 0.6 oz pur e alcohol) Abstinent as of 06/2013. [facility] [employer] Answer Date Recorded In the past 12 months has e [employer], gas, oil, or water [employer] threatened to shut off services in your home? Patient declined 06/27/2024 Humiliation, Afraid, Rape, and Kick questionnair e Answer Date Recorded Within the last year, have y ou been afraid of your partner or ex-partner? Patient declined 06/27/2024 Within the last year, have y ou been humiliated or emotionally abused in other ways by your partner or ex-partner? Patient declined 06/27/2024 Within the last year, have y ou been kicked, hit, slapped, or otherwise physically hurt by your partner or ex-partner? Patient declined 06/27/2024 Within the last year, have y ou been raped or forced to have any kind of sexual activity by your partner or ex-partner? Patient declined 06/27/2024 PHQ-2 Answer Date Recorded PHQ-2 Score 0 02/17/2021 Hunger Vital Sign Answer Date Recorded Within the past 12 months, y ou worried that your food would run out before you got the money to buy more. Patient declined Within the past 12 months, t he food you bought just didn't last and you didn't have money to get more. Patient declined PRAPARE - Transportation Answer Date Re corded In the past 12 months, has l ack of transportation kept you from medical appointments or from getting medications? Patient declined 06/27/2024 In the past 12 months, has l ack of transportation kept you from meetings, work, or from getting things needed for daily living? Patient declined 06/27/2024 Housing Stability Vital Sign Answer Flavio e Recorded In the last 12 months, was t here a time when you were not able to pay the mortgage or rent on time? Patient declined 06/27/19 25 In the past 12 months, how m any times have you moved where you were living? 1 06/27/2024 At any time in the past 12 m [facility], were you homeless or living in a skilled nursing (including now)? Patient declined 06/27/2024 Sex and Gender Information Value Date Recorded Sex Assigned at Not on file Gender Identity Not on file Sexual Orientation Not on file Last Filed Vital Signs Vital Sign Reading Time Taken Comments Blood Pressure 97/60 06/28/2024 11:45 AM ZINC FURNACE CHARGER Pulse 73 06/28/2024 11:45 AM ZINC FURNACE CHARGER Temperature 37 C (98.6 F) 06/28/2024 7:45 AM ZINC FURNACE CHARGER Respiratory Rate 18 06/28/2024 11:45 AM ZINC FURNACE CHARGER Oxygen Saturation 100% 06/28/2024 7:45 AM ZINC FURNACE CHARGER Inhaled Oxygen Concentration - - Weight 57.2 kg (126 lb) 06/26/2024 2:17 AM ZINC FURNACE CHARGER Height 165.1 cm (5' 5) 06/26/2024 2:17 AM ZINC FURNACE CHARGER Body Mass Index 20.97 06/26/2024 2:17 AM ZINC FURNACE CHARGER Plan of Treatment Upcoming Encounters Date Type Department Care Team (Late st Contact Info) Description 07/31/2024 2:30 PM ZINC FURNACE CHARGER Appointment [facility] [address] [place] [address] 08/18/2024 11:00 AM CDT Appointment [facility] [address] [place] [address] Chad Wood MD [address] [place] [address] Health Maintenance Due Date Last Done Comments Pneumococcal (1 - PCV) 01/25/1986 Adult Preventive Visit 01/25/1998 HepA (1 of 2 - Risk 2-dose series) 01/25/1999 HepB (1) 01/25/1999 Cervical Cancer Screening Due 10/04/2014 10/03/2014, 04/04/2013, 12/22/2011, Additional history exists COVID-19 Vaccine ( season) 2024 09/30/2020, 09/09/2020 Influenza (#1) 2024 03/26/2020, 07/08, 03/26/2018, Additional history exists Mammogram 03/14/2025 03/14/2024 DTaP/Tdap/Td (4 - Tdap) 01/13/2028 01/13/20 18, 01/29/2006, 01/29/1994 Zoster/Shingles (1 of 2) 01/25/2030 HIV Screening (Preventive Services) Completed 06/26/2024, 12/17/2011, 03/23/2008, Additional history exists Hep C Screening (Preventive Services) Completed 06/26/2024, 09/05/2005 HPV Vaccine Aged Out No longer eligi ble based on patient's age to complete this topic Hib Aged Out No longer eligi ble based on patient's age to complete this topic IPV (Polio) Aged Out No longer eligi ble based on patient's age to complete this topic MCV4 Aged Out No longer eligi ble based on patient's age to complete this topic Procedures Procedure Name Priority Date/Time Associated Diagnosis Comments EXTRA LIGHT GREEN TUBE Routine 06/28/2024 7:33 AM ZINC FURNACE CHARGER EXTRA TUBES Routine 06/28/2024 7:33 AM ZINC FURNACE CHARGER PLATELETS Routine 06/28/2024 7:33 AM ZINC FURNACE CHARGER INPATIENT TELEMETRY MONITORING Routine 06/28/2024 7:22 AM ZINC FURNACE CHARGER HIL & VOLUME (NO ALIQUOT) Specified Time 06/27/2024 4:24 PM ZINC FURNACE CHARGER XA UNFRACTIONATED HEPARIN Specified Time 06/27/2024 4:24 PM ZINC FURNACE CHARGER ANTI-XA (HEPARIN AND LMWH LEVEL)/FONDAPARINUX ASSAY Specified Time 06/27/2024 4:24 PM ZINC FURNACE CHARGER INPATIENT TELEMETRY MONITORING Routine 06/27/2024 3:43 PM ZINC FURNACE CHARGER HIL & VOLUME (NO ALIQUOT) STAT 06/27/2024 11:03 AM ZINC FURNACE CHARGER LIVER PANEL(HEPATIC FUNCTION PANEL) STAT 06/27/2024 11:03 AM ZINC FURNACE CHARGER COMPLETE BLOOD COUNT-NO DIFF STAT 06/27/2024 11:03 AM ZINC FURNACE CHARGER CREATININE / GFR STAT 06/27/2024 11:0 3 AM ZINC FURNACE CHARGER INR/PROTIME STAT 06/27/2024 11:03 AM ZINC FURNACE CHARGER APTT (ACTIVATED PARTIAL THROMBOPLASTIN TIME STAT 06/27/2024 11:03 AM ZINC FURNACE CHARGER CARDIAC FINANCIAL ANALYST PROCEDURE Routine 06/27/2024 9:46 AM ZINC FURNACE CHARGER HIL & VOLUME (NO ALIQUOT) Specified Time 06/27/2024 8:39 AM ZINC FURNACE CHARGER XA UNFRACTIONATED HEPARIN Specified Time 06/27/2024 8:39 AM ZINC FURNACE CHARGER ANTI-XA (HEPARIN AND LMWH LEVEL)/FONDAPARINUX ASSAY Specified Time 06/27/2024 8:39 AM ZINC FURNACE CHARGER PHOSPHORUS Routine 06/27/2024 8:39 AM ZINC FURNACE CHARGER COMPLETE BLOOD COUNT-NO DIFF Routine 06/27/2024 8:39 AM ZINC FURNACE CHARGER COMPREHENSIVE METABOLIC PANEL Routine 06/27/2024 8:39 AM ZINC FURNACE CHARGER LIPID PANEL & DIRECT LDL (IF NEEDED) Routine 06/27/2024 8:39 AM ZINC FURNACE CHARGER MAGNESIUM Routine 06/27/2024 8:39 AM ZINC FURNACE CHARGER INPATIENT TELEMETRY MONITORING Routine 06/27/2024 8:13 AM ZINC FURNACE CHARGER HIL & VOLUME (NO ALIQUOT) Specified Time 06/27/2024 1:49 AM ZINC FURNACE CHARGER XA UNFRACTIONATED HEPARIN Specified Time 06/27/2024 1:49 AM ZINC FURNACE CHARGER ANTI-XA (HEPARIN AND LMWH LEVEL)/FONDAPARINUX ASSAY Specified Time 06/27/2024 1:49 AM ZINC FURNACE CHARGER C.DIFFICILE TOXIN,MOLECULAR DETECTION Routine 06/27/2024 1:25 AM ZINC FURNACE CHARGER INPATIENT TELEMETRY MONITORING Routine 06/26/2024 11:59 PM ZINC FURNACE CHARGER US VENOUS BILAT LOWER EXTREM DOPPLER Discharge Decision 06/26/2024 9:39 PM ZINC FURNACE CHARGER HIL & VOLUME (NO ALIQUOT) Specified Time 06/26/2024 6:24 PM ZINC FURNACE CHARGER POTASSIUM Routine 06/26/2024 6:24 PM ZINC FURNACE CHARGER XA UNFRACTIONATED HEPARIN Specified Time 06/26/2024 6:24 PM ZINC FURNACE CHARGER ANTI-XA (HEPARIN AND LMWH LEVEL)/FONDAPARINUX ASSAY Specified Time 06/26/2024 6:24 PM ZINC FURNACE CHARGER MAGNESIUM Specified Time 06/26/2024 6:24 PM ZINC FURNACE CHARGER INPATIENT TELEMETRY MONITORING Routine 06/26/2024 4:58 PM ZINC FURNACE CHARGER POTASSIUM Specified Time 06/26/2024 12:23 PM ZINC FURNACE CHARGER HIL & VOLUME (NO ALIQUOT) Routine 06/26/2024 10:27 AM ZINC FURNACE CHARGER IV INSERTION(LAB TO PERFORM) Routine 06/26/2024 10:27 AM ZINC FURNACE CHARGER XA UNFRACTIONATED HEPARIN Routine 06/26/2024 10:27 AM ZINC FURNACE CHARGER ANTI-XA (HEPARIN AND LMWH LEVEL)/FONDAPARINUX ASSAY Routine 06/26/2024 10:27 AM ZINC FURNACE CHARGER EJECTION FRACTION Routine 06/26/2024 8:5 4 AM ZINC FURNACE CHARGER CARDIAC ROUTINE ECHOCARDIOGRAM Routine 06/26/2024 8:54 AM ZINC FURNACE CHARGER MAGNESIUM Add-On 06/26/2024 6:33 AM ZINC FURNACE CHARGER TROPONIN I Specified Time 06/26/2024 6:33 AM ZINC FURNACE CHARGER HEPATITIS C ANTIBODY, WITH REFLEX Routine 06/26/2024 3:19 AM ZINC FURNACE CHARGER HEPATITIS A AB,IGM Routine 06/26/2024 3: 19 AM ZINC FURNACE CHARGER HBSAG (HEPATITIS B SURFACE AG) Routine 06/26/2024 3:19 AM ZINC FURNACE CHARGER HIL & VOLUME (NO ALIQUOT) Specified Time 06/26/2024 3:19 AM ZINC FURNACE CHARGER LIVER PANEL(HEPATIC FUNCTION PANEL) Routine 06/26/2024 3:19 AM ZINC FURNACE CHARGER BASIC METABOLIC PANEL Routine 06/26/2024 3:19 AM ZINC FURNACE CHARGER COMPLETE BLOOD COUNT-NO DIFF Routine 06/26/2024 3:19 AM ZINC FURNACE CHARGER TROPONIN I Specified Time 06/26/2024 3:19 AM ZINC FURNACE CHARGER XA UNFRACTIONATED HEPARIN Specified Time 06/26/2024 3:19 AM ZINC FURNACE CHARGER ANTI-XA (HEPARIN AND LMWH LEVEL)/FONDAPARINUX ASSAY Specified Time 06/26/2024 3:[address] ANGIO NECK W IV CONT STAT 06/26/2024 2:07 AM ZINC FURNACE CHARGER POCT URINE STAT 06/26/2024 12:54 AM ZINC FURNACE CHARGER HIV 1/2 AG/AB 4TH GEN STAT 06/26/2024 12:49 AM ZINC FURNACE CHARGER TSH, SENSITIVE (WITH REFLEX) Add-On 06/25/2024 8:21 PM ZINC FURNACE CHARGER TROPONIN I STAT 06/25/2024 8:[address] ANGIO CHEST W IV CONT PE STUDY STAT 06/25/2024 8:01 PM ZINC FURNACE CHARGER POC US EXPANDED IVC Routine 06/25/2024 6 :20 PM ZINC FURNACE CHARGER ECG-ROUTINE 12 LEAD; INTRPT & REPRT STAT 06/25/2024 6:11 PM ZINC FURNACE CHARGER BLOOD GAS, VENOUS PLUS CHEMISTRIES POCT Routine 06/25/2024 5:39 PM ZINC FURNACE CHARGER HGB A1C Add-On 06/25/2024 5:38 PM ZINC FURNACE CHARGER XA UNFRACTIONATED HEPARIN Add-On 06/25/2024 5:38 PM ZINC FURNACE CHARGER ANTI-XA (HEPARIN AND LMWH LEVEL)/FONDAPARINUX ASSAY Add-On 06/25/2024 5:38 PM ZINC FURNACE CHARGER INR/PROTIME STAT Add-On 06/25/2024 5:38 PM ZINC FURNACE CHARGER APTT (ACTIVATED PARTIAL THROMBOPLASTIN TIME STAT Add-On 06/25/2024 5:38 PM ZINC FURNACE CHARGER HIL & VOLUME (NO ALIQUOT) STAT 06/25/2024 5:38 PM ZINC FURNACE CHARGER LIPASE STAT 06/25/2024 5:38 PM ZINC FURNACE CHARGER LIVER PANEL(HEPATIC FUNCTION PANEL) STAT 06/25/2024 5:38 PM ZINC FURNACE CHARGER PHOSPHORUS STAT 06/25/2024 5:38 PM ZINC FURNACE CHARGER D DIMER, QUANTITATIVE STAT 06/25/2024 5:38 PM ZINC FURNACE CHARGER TROPONIN I STAT 06/25/2024 5:38 PM ZINC FURNACE CHARGER MAGNESIUM STAT 06/25/2024 5:38 PM ZINC FURNACE CHARGER COMPLETE BLOOD COUNT-NO DIFF STAT 06/25/2024 5:38 PM ZINC FURNACE CHARGER ALCOHOL,ETHYL STAT 06/25/2024 5:38 PM ZINC FURNACE CHARGER BASIC METABOLIC PANEL STAT 06/25/2024 5:38 PM ZINC FURNACE CHARGER ECG-ROUTINE 12 LEAD; INTRPT & REPRT STAT 06/25/2024 5:01 PM ZINC FURNACE CHARGER ANATOMICAL PATH LIQUID BASED Routine 10/03/2014 9:37 AM CDT from Last 3 Months or Most Recently Relevant to Health Maintenance Results * Extra Light Green Tube (06/28/2024 7:33 AM ZINC FURNACE CHARGER) Pathologist [facility] Extra Light Green Tube Drawn Specimen will be held for 5 days 06/28/2024 9:00 AM ZINC FURNACE CHARGER [facility] Blood Venipuncture / Unknown 06/28/2024 7:33 AM ZINC FURNACE CHARGER 06/28/2024 7:42 AM ZINC FURNACE CHARGER Carrie Askew MD LAB_1 Performing Organization Address City/[facility]/ZIP Co de Phone Number [address] * (ABNORMAL) PLATELETS (06/28/2024 7:33 AM ZINC FURNACE CHARGER) [facility] Platelets 114(L) 150 - 450 x10(9)/L 06/28/2024 7:46 AM [facility] Blood Venipuncture / Unknown 06/28/2024 7:33 AM ZINC FURNACE CHARGER 06/28/2024 7:41 AM ZINC FURNACE CHARGER Tami Bobo APRN, CNP LAB_1 Performing Organization Address [facility]/ZIP Co de Phone Number [address] * INPATIENT TELEMETRY MONITORING (06/28/2024 7:22 AM ZINC FURNACE CHARGER) Only the most recent of5 resultswithin the time period is included. TELE P-R INTERVAL 0.15 [facility]USE [facility] TELE QRS DURATION 0.06 [facility] TELE R-R INTERVAL 0.89 [facility] TELE QT 0.39 [facility]USE [facility] TELE QTC 0.41 MUSE P TELE INTERPRETATION Sinus Rhythm JM MUSE [facility] 06/28/2024 7:22 AM ZINC FURNACE CHARGER Narrative [facility] - 06/28/2024 7:45 AM ZINC FURNACE CHARGER Sinus Rhythm JM Interface Provider EKG Performing Organization Address [facility] Co de Phone Number [facility] [address] [place] [address] * (ABNORMAL) XA Unfractionated Heparin (06/27/2024 4:24 PM ZINC FURNACE CHARGER) Only the most recent of7 resultswithin the time period is included. Heparin 10a Level (Unfractionate d Hep) <0.10(L) 0.30 - 0.70 IU/mL 06/27/2024 5:10 PM ZINC FURNACE CHARGER [facility] Blood Venipuncture / Unknown 06/27/2024 4:24 PM ZINC FURNACE CHARGER 06/27/2024 4:25 PM ZINC FURNACE CHARGER Carrie Askew MD LAB_1 Performing Organization Address [facility] Co de Phone Number [address] * HIL & Volume Check (No [place]) (06/27/2024 4:24 PM ZINC FURNACE CHARGER) Only the most recent of8 resultswithin the time period is included. Blood Venipuncture / Unknown 06/27/2024 4:24 PM ZINC FURNACE CHARGER 06/27/2024 4:25 PM ZINC FURNACE CHARGER Carrie Askew MD LAB_1 Performing Organization Address [facility] Co de Phone Number [address] * Creatinine / GFR (06/27/2024 11:03 AM ZINC FURNACE CHARGER) Creatinine 0.57 0.55 - 1.02 mg/dL 06/27/2024 11:49 AM ZINC FURNACE CHARGER [facility] GFR, Estimated >60 >60 mL/min/1.7 3m2 06/27/2024 11:49 AM [facility] Blood Venipuncture / Unknown 06/27/2024 11:03 AM ZINC FURNACE CHARGER 06/27/2024 11:17 AM ZINC FURNACE CHARGER Tami Bobo APRN, CNP LAB_1 Performing Organization Address [facility]/State/ZIP Co de Phone Number [address] * (ABNORMAL) Liver Panel (Hepatic Function Panel) (06/27/2024 11:03 AM ZINC FURNACE CHARGER) Only the most recent of3 resultswithin the time period is included. Alkaline Phosphatase 76 40 - 150 U/L 06/27/2024 11:49 AM [facility] Bilirubin, Total 0.4 0.2 - 1.2 mg/dL 06/27/2024 11:49 AM [facility] Bilirubin, Direct 0.2 0.0 - 0.5 mg/dL 06/27/2024 11:49 AM [facility] AST (SGOT) 33 10 - 40 U/L 06/27/2024 11:49 AM [facility] ALT (SGPT) 70(H) 0 - 55 U/L 06/27/2024 11:49 AM [facility] Protein, Total 6.0(L) 6.4 - 8.3 g/dL 06/27/2024 11:49 AM [facility] Albumin 3.3(L) 3.5 - 5.0 g/dL 06/27/2024 11:49 AM [facility] Blood Venipuncture / Unknown 06/27/2024 11:03 AM ZINC FURNACE CHARGER 06/27/2024 11:17 AM ZINC FURNACE CHARGER Tami Bobo APRN, CNP LAB_1 Performing Organization Address City/[facility]/ZIP Co de Phone Number [address] * (ABNORMAL) APTT (Activated Partial Thromboplastin Time) (06/27/2024 11:03 AM ZINC FURNACE CHARGER) Only the most recent of2 resultswithin the time period is included. APTT 73.5(H) 22.5 - 36.5 Seconds 06/27/2024 11:34 AM [facility] Blood Venipuncture / Unknown 06/27/2024 11:03 AM ZINC FURNACE CHARGER 06/27/2024 11:17 AM ZINC FURNACE CHARGER Tami Bobo APRN, CNP LAB_[address] * (ABNORMAL) Complete Blood Count-No Diff (06/27/2024 11:03 AM ZINC FURNACE CHARGER) Only the most recent of4 resultswithin the time period is included. WBC 3.9 3.5 - 10.5 x10(9)/L 06/27/2024 11:21 AM [facility] RBC 4.20 3.90 - 5.03 x10(12)/L 06/27/2024 11:21 AM [facility] Hemoglobin 12.8 12.0 - 15.5 g/dL 06/27/2024 11:21 AM [facility] HCT 40.0 34.9 - 44.5 % 06/27/2024 11:21 AM [facility] MCV 95.2 80.0 - 100.0 fL 06/27/2024 11:21 AM [facility] MCH 30.5 27.6 - 33.3 pg 06/27/2024 11:21 AM [facility] MCHC 32.0 31.5 - 35.2 g/dL 06/27/2024 11:21 AM [facility] RDW 15.3 11.9 - 15.5 % 06/27/2024 11:21 AM [facility] Platelets 112(L) 150 - 450 x10(9)/L 06/27/2024 11:21 AM [facility] Automated NRBC 0 <=0 /100 WBC 06/27/2024 11:21 AM [facility] Blood Venipuncture / Unknown 06/27/2024 11:03 AM ZINC FURNACE CHARGER 06/27/2024 11:17 AM ZINC FURNACE CHARGER Tami Bobo APRN, CNP LAB_1 Performing Organization Address City/[facility]/ZIP Co de Phone Number [address] * INR/PROTIME (06/27/2024 11:03 AM ZINC FURNACE CHARGER) Only the most recent of2 resultswithin the time period is included. Protime 12.8 11.8 - 14.6 Seconds 06/27/2024 11:34 AM ZINC FURNACE CHARGER [facility] INR 1.0 0.9 - 1.1 06/27/2024 11:34 AM [facility] Blood Venipuncture / Unknown 06/27/2024 11:03 AM ZINC FURNACE CHARGER 06/27/2024 11:17 AM ZINC FURNACE CHARGER Narrative [facility] - 06/27/2024 11:34 AM ZINC FURNACE CHARGER If you take an anticoagulant medicine called warfarin, your doctor or clinician may establish a normal range for you that is different from the baseline range shown. Tami Bobo APRN, MAR[place] LAB_1 Performing Organization Address City/State/[facility] Co de Phone Number [address] * Coronary Angiogram (06/27/2024 9:46 AM ZINC FURNACE CHARGER) 06/27/2024 9:46 AM ZINC FURNACE CHARGER Narrative [facility] - 06/27/2024 10:15 AM ZINC FURNACE CHARGER Conclusions 1. No disease noted in the Left Main, Left Anterior Descending, Right, or Circumflex coronary arteries. 2. LVEDP 7 mmHg. Recommendations * Continue medical management and risk factor modification. Report Signatures Finalized by Jose Sifuentes MD on 06/27/2024 10:15 AM Event Lo06/27/2024 09:03:02 AM: Phase: Baseline 06/27/2024 09:04:14 AM: PRE-PROCEDURE 06/27/2024 09:04:14 AM: Site: Room 5 06/27/2024 09:04:15 AM: Room Ready 06/27/2024 09:04:58 AM: Case Event Type:Diagnostic Cath,Physician:Jose Sifuentes 06/27/2024 09:05:01 AM: === LABS from: 06/27/24=== 06/27/2024 09:05:01 AM: For Reference Range See Chart Review tab in EPIC 06/27/2024 09:05:01 AM: BUN: 6 06/27/2024 09:05:01 AM: Creat: 0.60 06/27/2024 09:05:02 AM: GFR: >60 06/27/2024 09:05:02 AM: Sodium: 133 06/27/2024 09:05:02 AM: Potassium: 3.3 06/27/2024 09:05:02 AM: HB: 12.8 06/27/2024 09:05:02 AM: Plts: 113 06/27/2024 09:05:02 AM: PT: 12.3 06/27/2024 09:05:02 AM: INR: 0.9 06/27/2024 09:06:49 AM: Cath urgency: urgent 06/27/2024 09:06:49 AM: Test Reason: R/O CAD 06/27/2024 09:35:59 AM: Patient on Table 06/27/2024 09:36:36 AM: SpO2 99%; HR 73 bpm; 107/70/84 NBP; LOC 2; RR 0/min INSP: 0 mmHg; EXP: 0 mmHg; 06/27/2024 09:39:21 AM: Allergies: NKDA 06/27/2024 09:40:45 AM: Pt. States Pain/Discomfort: __ /10 06/27/2024 09:40:45 AM: H & P on chart 06/27/2024 09:40:45 AM: Armband on patient 06/27/2024 09:40:45 AM: NPO Since >6 hours, Status Confirmed 06/27/2024 09:40:45 AM: No Hx of sedation/anesthesia reaction 06/27/2024 09:40:45 AM: Patient Positioned Supine on Procedure Table, padded arm Support 06/27/2024 09:40:45 AM: Cardiac/BP/CO2 monitors & defibrillator present & functioning 06/27/2024 09:40:45 AM: O2/Ambu Bag/Suction & emergency equipment present & functioning 06/27/2024 09:40:45 AM: Emergency and reversal medications present 06/27/2024 09:40:45 AM: PD: Patient Prepped and Draped in Sterile Fashion 06/27/2024 09:40:45 AM: PD: Sterile prep consists 2% chlorhexidine/70% isopropyl alcohol 06/27/2024 09:40:45 AM: [place] of heparinized saline used to flush catheters 06/27/2024 09:40:45 AM: and luminal devices during case (concentration 2 units/ml) 06/27/2024 09:40:46 AM: DRAPE ZERO GRAVITY 06/27/2024 09:40:48 AM: Distal Pulses Present 06/27/2024 09:40:48 AM: Airway: Patient on Room Air upon arrival 06/27/2024 09:40:49 AM: Initial EKG Rhythm: NSR w/ ST DEPRESSION 06/27/2024 09:40:50 AM: Physician Available 06/27/2024 09:40:50 AM: Briefing Done 06/27/2024 09:40:58 AM: VERSED IV 1 mg 06/27/2024 09:41:03 AM: Fentanyl IV 50 mcg 06/27/2024 09:41:03 AM: above medication(s) given for anxiety/pain/discomfort 06/27/2024 09:41:03 AM: the above medications are being administered and 06/27/2024 09:41:03 AM: continuous monitoring was performed by the RN and MD 06/27/2024 09:41:23 AM: SpO2 95%; HR 71 bpm; 97/61/74 NBP; LOC 1; RR 11/min INSP: 0 mmHg; EXP: 37 mmHg; 06/27/2024 09:46:20 AM: SpO2 99%; HR 67 bpm; 98/63/73 NBP; LOC 1; RR 8/min INSP: 0 mmHg; EXP: 35 mmHg; 06/27/2024 09:46:58 AM: O2 Non-rebreather 2 l per min 06/27/2024 09:51:18 AM: SpO2 98%; HR 70 bpm; 97/58/73 NBP; LOC 1; RR 9/min INSP: 0 mmHg; EXP: 40 mmHg; 06/27/2024 09:52:57 AM: Physician In Procedure Room 06/27/2024 09:52:57 AM: Patient & Procedure Verification Completed with Physician 06/27/2024 09:52:57 AM: TIME OUT performed by physician and staff 06/27/2024 09:53:26 AM: Case Start 06/27/2024 09:53:33 AM: PD: 1% Lidocaine to Right Wrist Area 06/27/2024 09:53:49 AM: PD: Ultrasound used for access 06/27/2024 09:53:50 AM: : Rt Radial Artery accessed, 6FR Glidesheath inserted 06/27/2024 09:54:01 AM: 6F SW SHE GLIDE SLENDER SW 6F 06/27/2024 09:54:07 AM: 5F CATH DIAG 5F TIG 4.0 06/27/2024 09:54:11 AM: ANH INQWIRE .035 210CM 06/27/2024 09:54:16 AM: : Rt Radial Artery accessed, 6FR Glidesheath inserted 06/27/2024 09:54:18 AM: PD: Access of the vessel(s) using modified Seldinger technique 06/27/2024 09:54:18 AM: PD: Procedural site(s) accessed by LC 06/27/2024 09:54:31 AM: Verapamil IA 200 mcg 06/27/2024 09:54:36 AM: Nitroglycerin IA 200 mcg 06/27/2024 09:54:54 AM: 5FR TIG Catheter In 06/27/2024 09:55:30 AM: HEPARIN BOLUS IV 3,000 units 06/27/2024 09:55:55 AM: LV : 113/1/7, Max dP/dt = 1572, HR = 78, II(Edited) 06/27/2024 09:55:55 AM: Snapshot: LV : 113/1/7 06/27/2024 09:56:05 AM: LV : 109/1/7, Max dP/dt = 1523, HR = 75, II(Edited) 06/27/2024 09:56:05 AM: Snapshot: LV : 109/1/7 06/27/2024 09:56:05 AM: LV : 113/1/7, Max dP/dt = 1572, HR = 76, II(Edited) 06/27/2024 09:56:08 AM: Pullback from LV to AO 06/27/2024 09:56:12 AM: AO : 85/62/13, HR = 79, II 06/27/2024 09:56:13 AM: Snapshot: Pullback from LV to AO 06/27/2024 09:56:16 AM: PD: A 5FR TIG 4.0 catheter was advanced across the Aortic valve. 06/27/2024 09:56:17 AM: PD: Pressure measurements obtained 06/27/2024 09:56:24 AM: SpO2 98%; HR 94 bpm; 99/54/71 NBP; LOC 1; RR 10/min INSP: 0 mmHg; EXP: 36 mmHg; 06/27/2024 09:56:50 AM: Left Coronary Artery Cannulated 06/27/2024 09:57:13 AM: Left Coronary Artery, Multiple Views Obtained 06/27/2024 09:57:36 AM: Catheter Repositioned 06/27/2024 09:57:54 AM: 5FR TIG 4.0 Catheter unable to cannulate 06/27/2024 09:58:17 AM: 5F CATH DIAG 5FR JR4.0 06/27/2024 09:58:28 AM: 100 ml OMNIPAQUE 350MG 100ML 06/27/2024 09:59:11 AM: Right Coronary Artery Cannulated 06/27/2024 09:59:42 AM: Right Coronary Artery, Multiple Views Obtained 06/27/2024 09:59:47 AM: Catheter Out 06/27/2024 09:59:48 AM: PD: Appropriate catheters were used under fluoroscopic guidance 06/27/2024 09:59:48 AM: and selectively cannulated left and right coronary arteries 06/27/2024 09:59:49 AM: PD: Coronary angiography was performed. 06/27/2024 09:59:58 AM: Physician Exiting Room 06/27/2024 09:59:58 AM: PD: Total Conscious Sedation Time: 19 mins 06/27/2024 10:00:00 AM: AC: Sheath removed, TR band placed per protocol 06/27/2024 10:00:08 AM: Hematoma Not Present 06/27/2024 10:00:08 AM: POST PROCEDURE PHYSICAL ASSESSMENT 06/27/2024 10:00:09 AM: All Pulses Present Post Procedure 06/27/2024 10:00:32 AM: Notify Charge [id number] 06/27/2024 10:00:33 AM: Patient's Family Notified VIA 06/27/2024 10:00:38 AM: 30 mls of Fluid Administered during Case 06/27/2024 10:00:39 AM: Pt is Now in Recovery Phase 06/27/2024 10:00:39 AM: PD: Patient tolerated procedure well without complications. 06/27/2024 10:00:39 AM: Pt. States Pain/Discomfort: -/10 06/27/2024 10:00:42 AM: Contrast: OMNIPAQUE 350MG 100ML 35 mL 06/27/2024 10:01:46 AM: Case End 06/27/2024 10:01:56 AM: SpO2 97%; HR 77 bpm; 103/61/75 NBP; LOC 2; RR 10/min INSP: 0 mmHg; EXP: 34 mmHg; 06/27/2024 10:02:04 AM: Complication: no complications 06/27/2024 10:02:12 AM: Procedure: Coronary Angiography 06/27/2024 10:02:12 AM: Procedure: Left Heart Cath 06/27/2024 10:02:15 AM: Procedure: Hemostasis with TR Band 06/27/2024 10:09:48 AM: Patient off table 06/27/2024 10:11:47 AM: Patient transferred to Inventory: DRAPE ZERO GRAVITY SHE GLIDE SLENDER SW 6F CATH DIAG 5F TIG 4.0 GW INQWIRE .035 210CM CATH DIAG 5FR JR4.0 OMNIPAQUE 350MG 100ML Procedure Note Jose Sifuentes MD - 06/27/2024 Conclusions 1. No disease noted in the Left Main, Left Anterior Descending, Right,or Circumflex coronary arteries. 2. LVEDP 7 mmHg. Recommendations * Continue medical management and risk factor modification. Report Signatures Finalized by Jose Sifuentes MD on 06/27/2024 10:15 AM Event Lo06/27/2024 09:03:02 AM: Phase: Baseline 06/27/2024 09:04:14 AM: PRE-PROCEDURE 06/27/2024 09:04:14 AM: Site: Room 5 06/27/2024 09:04:15 AM: Room Ready 06/27/2024 09:04:58 AM: Case Event Type:DiagnosticCath,Physician:Jose Sifuentes 06/27/2024 09:05:01 AM: === LABS from: 06/27/24=== 06/27/2024 09:05:01 AM: For Reference Range See Chart Review tab in EPIC 06/27/2024 09:05:01 AM: BUN: 6 06/27/2024 09:05:01 AM: Creat: 0.60 06/27/2024 09:05:02 AM: GFR: >60 06/27/2024 09:05:02 AM: Sodium: 133 06/27/2024 09:05:02 AM: Potassium: 3.3 06/27/2024 09:05:02 AM: HB: 12.8 06/27/2024 09:05:02 AM: Plts: 113 06/27/2024 09:05:02 AM: PT: 12.3 06/27/2024 09:05:02 AM: INR: 0.9 06/27/2024 09:06:49 AM: Cath urgency: urgent 06/27/2024 09:06:49 AM: Test Reason: R/O CAD 06/27/2024 09:35:59 AM: Patient on Table 06/27/2024 09:36:36 AM: SpO2 99%; HR 73 bpm; 107/70/84 NBP; LOC 2; RR0/min INSP: 0 mmHg; EXP: 0 mmHg; 06/27/2024 09:39:21 AM: Allergies: NKDA 06/27/2024 09:40:45 AM: Pt. States Pain/Discomfort: __ /10 06/27/2024 09:40:45 AM: H & P on chart 06/27/2024 09:40:45 AM: Armband on patient 06/27/2024 09:40:45 AM: NPO Since >6 hours, Status Confirmed 06/27/2024 09:40:45 AM: No Hx of sedation/anesthesia reaction 06/27/2024 09:40:45 AM: Patient Positioned Supine on Procedure Table,padded arm Support 06/27/2024 09:40:45 AM: Cardiac/BP/CO2 monitors & defibrillator present &functioning 06/27/2024 09:40:45 AM: O2/Ambu Bag/Suction & emergency equipment present& functioning 06/27/2024 09:40:45 AM: Emergency and reversal medications present 06/27/2024 09:40:45 AM: PD: Patient Prepped and Draped in SterileFashion 06/27/2024 09:40:45 AM: PD: Sterile prep consists 2% chlorhexidine/70%isopropyl alcohol 06/27/2024 09:40:45 AM: [place] of heparinized saline used to flushcatheters 06/27/2024 09:40:45 AM: and luminal devices during case (concentration 2units/ml) 06/27/2024 09:40:46 AM: DRAPE ZERO GRAVITY 06/27/2024 09:40:48 AM: Distal Pulses Present 06/27/2024 09:40:48 AM: Airway: Patient on Room Air upon arrival 06/27/2024 09:40:49 AM: Initial EKG Rhythm: NSR w/ ST DEPRESSION 06/27/2024 09:40:50 AM: Physician Available 06/27/2024 09:40:50 AM: Briefing Done 06/27/2024 09:40:58 AM: VERSED IV 1 mg 06/27/2024 09:41:03 AM: Fentanyl IV 50 mcg 06/27/2024 09:41:03 AM: above medication(s) given foranxiety/pain/discomfort 06/27/2024 09:41:03 AM: the above medications are being administered and 06/27/2024 09:41:03 AM: continuous monitoring was performed by the JAQUELINE Duggan 06/27/2024 09:41:23 AM: SpO2 95%; HR 71 bpm; 97/61/74 NBP; LOC 1; RR11/min INSP: 0 mmHg; EXP: 37 mmHg; 06/27/2024 09:46:20 AM: SpO2 99%; HR 67 bpm; 98/63/73 NBP; LOC 1; RR 8/minINSP: 0 mmHg; EXP: 35 mmHg; 06/27/2024 09:46:58 AM: O2 Non-rebreather 2 l per min 06/27/2024 09:51:18 AM: SpO2 98%; HR 70 bpm; 97/58/73 NBP; LOC 1; RR 9/minINSP: 0 mmHg; EXP: 40 mmHg; 06/27/2024 09:52:57 AM: Physician In Procedure Room 06/27/2024 09:52:57 AM: Patient & Procedure Verification Completed withPhysician 06/27/2024 09:52:57 AM: TIME OUT performed by physician and staff 06/27/2024 09:53:26 AM: Case Start 06/27/2024 09:53:33 AM: PD: 1% Lidocaine to Right Wrist Area 06/27/2024 09:53:49 AM: PD: Ultrasound used for access 06/27/2024 09:53:50 AM: : Rt Radial Artery accessed, 6FR Glidesheathinserted 06/27/2024 09:54:01 AM: 6F SW SHE TABITHA MORALES SW 6F 06/27/2024 09:54:07 AM: 5F CATH DIAG 5F TIG 4.0 06/27/2024 09:54:11 AM: GW INQWIRE .035 210CM 06/27/2024 09:54:16 AM: : Rt Radial Artery accessed, 6FR Glidesheathinserted 06/27/2024 09:54:18 AM: PD: Access of the vessel(s) using modifiedSeldinger technique 06/27/2024 09:54:18 AM: PD: Procedural site(s) accessed by LC 06/27/2024 09:54:31 AM: Verapamil IA 200 mcg 06/27/2024 09:54:36 AM: Nitroglycerin IA 200 mcg 06/27/2024 09:54:54 AM: 5FR TIG Catheter In 06/27/2024 09:55:30 AM: HEPARIN BOLUS IV 3,000 units 06/27/2024 09:55:55 AM: LV : 113/1/7, Max dP/dt = 1572, HR = 78,II(Edited) 06/27/2024 09:55:55 AM: Snapshot: LV : 113/1/7 06/27/2024 09:56:05 AM: LV : 109/1/7, Max dP/dt = 1523, HR = 75,II(Edited) 06/27/2024 09:56:05 AM: Snapshot: LV : 109/1/7 06/27/2024 09:56:05 AM: LV : 113/1/7, Max dP/dt = 1572, HR = 76,II(Edited) 06/27/2024 09:56:08 AM: Pullback from LV to AO 06/27/2024 09:56:12 AM: AO : 85/62/13, HR = 79, II 06/27/2024 09:56:13 AM: Snapshot: Pullback from LV to AO 06/27/2024 09:56:16 AM: PD: A 5FR TIG 4.0 catheter was advanced across theAortic valve. 06/27/2024 09:56:17 AM: PD: Pressure measurements obtained 06/27/2024 09:56:24 AM: SpO2 98%; HR 94 bpm; 99/54/71 NBP; LOC 1; RR10/min INSP: 0 mmHg; EXP: 36 mmHg; 06/27/2024 09:56:50 AM: Left Coronary Artery Cannulated 06/27/2024 09:57:13 AM: Left Coronary Artery, Multiple Views Obtained 06/27/2024 09:57:36 AM: Catheter Repositioned 06/27/2024 09:57:54 AM: 5FR TIG 4.0 Catheter unable to cannulate 06/27/2024 09:58:17 AM: 5F CATH DIAG 5FR JR4.0 06/27/2024 09:58:28 AM: 100 ml OMNIPAQUE 350MG 100ML 06/27/2024 09:59:11 AM: Right Coronary Artery Cannulated 06/27/2024 09:59:42 AM: Right Coronary Artery, Multiple Views Obtained 06/27/2024 09:59:47 AM: Catheter Out 06/27/2024 09:59:48 AM: PD: Appropriate catheters were used underfluoroscopic guidance 06/27/2024 09:59:48 AM: and selectively cannulated left and right coronaryarteries 06/27/2024 09:59:49 AM: PD: Coronary angiography was performed. 06/27/2024 09:59:58 AM: Physician Exiting Room 06/27/2024 09:59:58 AM: PD: Total Conscious Sedation Time: 19 mins 06/27/2024 10:00:00 AM: AC: Sheath removed, TR band placed per protocol 06/27/2024 10:00:08 AM: Hematoma Not Present 06/27/2024 10:00:08 AM: POST PROCEDURE PHYSICAL ASSESSMENT 06/27/2024 10:00:09 AM: All Pulses Present Post Procedure 06/27/2024 10:00:32 AM: Notify Charge [id number] 06/27/2024 10:00:33 AM: Patient's Family Notified VIA 06/27/2024 10:00:38 AM: 30 mls of Fluid Administered during Case 06/27/2024 10:00:39 AM: Pt is Now in Recovery Phase 06/27/2024 10:00:39 AM: PD: Patient tolerated procedure well withoutcomplications. 06/27/2024 10:00:39 AM: Pt. States Pain/Discomfort: -/10 06/27/2024 10:00:42 AM: Contrast: OMNIPAQUE 350MG 100ML 35 mL 06/27/2024 10:01:46 AM: Case End 06/27/2024 10:01:56 AM: SpO2 97%; HR 77 bpm; 103/61/75 NBP; LOC 2; RR10/min INSP: 0 mmHg; EXP: 34 mmHg; 06/27/2024 10:02:04 AM: Complication: no complications 06/27/2024 10:02:12 AM: Procedure: Coronary Angiography 06/27/2024 10:02:12 AM: Procedure: Left Heart Cath 06/27/2024 10:02:15 AM: Procedure: Hemostasis with TR Band 06/27/2024 10:09:48 AM: Patient off table 06/27/2024 10:11:47 AM: Patient transferred to Inventory: DRAPE ZERO GRAVITY SHE TABITHA MORALES SW 6F CATH DIAG 5F TIG 4.0 GW INQWIRE .035 210CM CATH DIAG 5FR JR4.0 OMNIPAQUE 350MG 100ML Chad Wood MD [facility] [address] [place] [address] * Lipid Panel & Direct LDL (if Needed) (06/27/2024 8:39 AM ZINC FURNACE CHARGER) Cholesterol 175 0 - 199 mg/dL 06/27/2024 9:10 AM [facility] Triglyceride 49 <=149 mg/dL 06/27/2024 9:10 AM [facility] HDL Cholesterol 96 >=40 mg/dL 9:10 AM [facility] LDL, Calculated 69 <130 mg/dL 9:10 AM [facility] Non HDL Chol, Calculated 79 <=159 mg/dL 06/27/2024 9:10 AM [facility] Cholesterol/HDL Ratio 1.8 <=5.0 06/27/2024 9:10 AM [facility] Blood Venipuncture / Unknown 06/27/2024 8:39 AM ZINC FURNACE CHARGER 06/27/2024 8:44 AM ZINC FURNACE CHARGER Chad Wood MD LAB_1 [place] [address], [facility] * (ABNORMAL) Comprehensive Metabolic Panel (06/27/2024 8:39 AM ZINC FURNACE CHARGER) Sodium 135(L) 136 - 145 mmol/L 06/27/2024 9:10 AM [facility] Potassium 4.2 3.5 - 5.1 mmol/L 06/27/2024 9:10 AM [facility] Chloride 105 98 - 109 mmol/L 06/27/2024 9:10 AM [facility] CO2 22 20 - 29 mmol/L 06/27/2024 9:10 AM [facility] Anion Gap 8 6 - 16 mmol/L 06/27/2024 9:10 AM [facility] Calcium 8.4 8.4 - 10.4 mg/dL 06/27/2024 9:10 AM [facility] BUN 7 7 - 26 mg/dL 06/27/2024 9:10 AM [facility] Creatinine 0.56 0.55 - 1.02 mg/dL 06/27/2024 9:10 AM [facility] Alkaline Phosphatase 70 40 - 150 U/L 06/27/2024 9:10 AM [facility] AST (SGOT) 32 10 - 40 U/L 06/27/2024 9:10 AM [facility] ALT (SGPT) 63(H) <=55 U/L 06/27/2024 9:10 AM [facility] Bilirubin, Total 0.4 0.2 - 1.2 mg/dL 06/27/2024 9:10 AM [facility] Protein, Total 6.0(L) 6.4 - 8.3 g/dL 06/27/2024 9:10 AM [facility] Albumin 3.1(L) 3.5 - 5.0 g/dL 06/27/2024 9:10 AM [facility] Glucose 82 70 - 100 mg/dL 06/27/2024 9:10 AM [facility] Comment:The given reference range is for the fasting state. Non-fasting reference range for glucose is 70 - 180 mg/dL. GFR, Estimated >60 >60 mL/min/1.7 3m2 06/27/2024 9:10 AM [facility] Blood Venipuncture / Unknown 06/27/2024 8:39 AM ZINC FURNACE CHARGER 06/27/2024 8:44 AM ZINC FURNACE CHARGER Casey Velasco MD LAB_[address] * Magnesium (06/27/2024 8:39 AM ZINC FURNACE CHARGER) Only the most recent of4 resultswithin the time period is included. Magnesium 2.0 1.6 - 2.6 mg/dL 06/27/2024 9:10 AM [facility] Blood Venipuncture / Unknown 06/27/2024 8:39 AM ZINC FURNACE CHARGER 06/27/2024 8:44 AM ZINC FURNACE CHARGER Casey Velasco MD [facility]_[address] * Phosphorus (06/27/2024 8:39 AM ZINC FURNACE CHARGER) Only the most recent of2 resultswithin the time period is included. Phosphorus 3.8 2.3 - 4.7 mg/dL 06/27/2024 9:10 AM [facility] Blood Venipuncture / Unknown 06/27/2024 8:39 AM ZINC FURNACE CHARGER 06/27/2024 8:44 AM ZINC FURNACE CHARGER Casey Velasoc MD LAB_1 Performing Organization Address [facility] de Phone Number [address] * C.Difficile Toxin,Molecular Detection,This order expires in 24 hours. Do NOT collect after: 06/28/2024; at: 12:37 AM (06/27/2024 1:25 AM ZINC FURNACE CHARGER) C.difficile Not Detected Not Detected 2:42 AM [facility] Comment:A single negative te st for C. difficile means the likelihood this organism is causing the diarrheal illness is extremely low. Therefore repeat testing within 7 days of the same diarrheal episode is strongly discouraged. Stool Non-blood Collection / Unknown 06/27/2024 1:25 AM ZINC FURNACE CHARGER 06/27/2024 1:30 AM ZINC FURNACE CHARGER Narrative [facility] - 06/27/2024 2:42 AM ZINC FURNACE CHARGER Methodology: Qualitative real-time PCR assay to detect the Clostridioides difficile toxin B gene. Chip Velázquez MD LAB_1 Performing Organization Address [facility] de Phone Number [address] * US Venous Bilat Lower Extrem Doppler (06/26/2024 9:39 PM ZINC FURNACE CHARGER) Anatomical Region Laterality Modality Vascular, Leg Ultrasound 06/26/2024 9:39 PM ZINC FURNACE CHARGER Narrative 06/26/2024 10:34 PM ZINC FURNACE CHARGER EXAM: US VENOUS BILAT LOWER EXTREM DOPPLER LOCATION: [facility] DATE: 06/26/2024 INDICATION: Rule out DVT, Edema COMPARISON: None. TECHNIQUE: Venous Duplex ultrasound of bilateral lower extremities with and without compression, augmentation and duplex. Color flow and spectral Doppler with waveform analysis performed. FINDINGS: Exam includes the common femoral, femoral, popliteal veins as well as segmentally visualized deep calf veins and greater saphenous vein. RIGHT: No deep vein thrombosis. No superficial thrombophlebitis. No popliteal cyst. LEFT: No deep vein thrombosis. No superficial thrombophlebitis. No popliteal cyst. IMPRESSION: 1. No deep venous thrombosis in the bilateral lower extremities. Procedure Note Pawan Rivas MD - 06/26/2024 EXAM: US VENOUS BILAT LOWER EXTREM DOPPLER LOCATION: [facility] DATE: 06/26/2024 INDICATION: Rule out DVT, Edema COMPARISON: None. TECHNIQUE: Venous Duplex ultrasound of bilateral lower extremities withand without compression, augmentation and duplex. Color flow and spectralDoppler with waveform analysis performed. FINDINGS: Exam includes the common femoral, femoral, popliteal veins aswell as segmentally visualized deep calf veins and greater saphenous vein. RIGHT: No deep vein thrombosis. No superficial thrombophlebitis. Nopopliteal cyst. LEFT: No deep vein thrombosis. No superficial thrombophlebitis. Nopopliteal cyst. IMPRESSION: 1. No deep venous thrombosis in the bilateral lower extremities. Casey Velasco MD [facility] US * Potassium (06/26/2024 6:24 PM ZINC FURNACE CHARGER) Only the most recent of2 resultswithin the time period is included. Potassium 3.8 3.5 - 5.1 mmol/L 06/26/2024 6:57 PM ZINC FURNACE CHARGER [facility] Blood Venipuncture / Unknown 06/26/2024 6:24 PM ZINC FURNACE CHARGER 06/26/2024 6:30 PM ZINC FURNACE CHARGER Casey Velasco MD LAB_1 Performing Organization Address [facility] Co de Phone Number [address] * IV Insertion, LST Perform (06/26/2024 10:27 AM ZINC FURNACE CHARGER) IV INSERTION, LST PERFORM (LAB) Done 06/26/2024 1:00 PM ZINC FURNACE CHARGER [facility] Other Specimen Type Venipuncture Butterfly / Unknown 06/26/2024 10:27 AM ZINC FURNACE CHARGER 06/26/2024 11:13 AM ZINC FURNACE CHARGER Casey Velasco MD LAB_1 Performing Organization Address [facility] Co de Phone Number [address] * EJECTION FRACTION (06/26/2024 8:54 AM ZINC FURNACE CHARGER) EF 34 % [facility] EF test type ECHO [facility] 06/26/2024 8:54 AM ZINC FURNACE CHARGER Rikki Pearson MD [facility] FINANCIAL ANALYST/RH Performing Organization Address [facility]/ZIP Co de Phone Number [facility] [address] [place] [address] * Echocardiogram (06/26/2024 8:54 AM ZINC FURNACE CHARGER) 06/26/2024 8:54 AM ZINC FURNACE CHARGER Narrative [facility] - 06/26/2024 1:18 PM ZINC FURNACE CHARGER Summary 1. Normal left ventricular chamber size; moderately reduced ejection fraction (34% by 2-D biplane); moderate generalized hypokinesis with more prominent apical hypokinesis. 2. Normal right ventricular chamber size with normal systolic function. 3. No significant valvular abnormalities. 4. No pericardial effusion. 5. Normal inferior vena cava size with normal inspiratory collapse (>50%) consistent with normal central venous pressures. 6. A prior study is not available for comparison. Report Signatures Finalized by Adry Coronado on 06/26/2024 01:18 PM Procedure Note Adry Coronado MD - 06/26/2024 Summary 1. Normal left ventricular chamber size; moderately reduced ejectionfraction (34% by 2-D biplane); moderate generalized hypokinesis with moreprominent apical hypokinesis. 2. Normal right ventricular chamber size with normal systolicfunction. 3. No significant valvular abnormalities. 4. No pericardial effusion. 5. Normal inferior vena cava size with normal inspiratory collapse(>50%) consistent with normal central venous pressures. 6. A prior study is not available for comparison. Report Signatures Finalized by Adry Coronado on 06/26/2024 01:18 PM Rikki Pearson MD [facility] /RH Performing Organization Address [facility]/ZIP Co de Phone Number [facility] [address] [place] [address] * (ABNORMAL) Troponin I (06/26/2024 6:33 AM ZINC FURNACE CHARGER) Only the most recent of4 resultswithin the time period is included. Pathologist [facility] Troponin I 0.36(H) 0.00 - 0.03 ng/mL 06/26/2024 7:40 AM [facility] Blood Venipuncture / Unknown 06/26/2024 6:33 AM ZINC FURNACE CHARGER 06/26/2024 7:04 AM ZINC FURNACE CHARGER Rikki Pearson MD LAB_[address] * (ABNORMAL) Basic Metabolic Panel (06/26/2024 3:19 AM ZINC FURNACE CHARGER) Only the most recent of2 resultswithin the time period is included. [facility] Sodium 133(L) 136 - 145 mmol/L 06/26/2024 3:52 AM [facility] Potassium 3.3(L) 3.5 - 5.1 mmol/L 06/26/2024 3:52 AM [facility] Chloride 100 98 - 109 mmol/L 06/26/2024 3:52 AM [facility] CO2 21 20 - 29 mmol/L 06/26/2024 3:52 AM [facility] Anion Gap 12 6 - 16 mmol/L 06/26/2024 3:52 AM [facility] Calcium 8.1(L) 8.4 - 10.4 mg/dL 06/26/2024 3:52 AM [facility] BUN 6(L) 7 - 26 mg/dL 06/26/2024 3:52 AM [facility] Creatinine 0.60 0.55 - 1.02 mg/dL 06/26/2024 3:52 AM [facility] Glucose 100 70 - 100 mg/dL 06/26/2024 3:52 AM [facility] Comment:The given reference range is for the fasting state. Non-fasting reference range for glucose is 70 - 180 mg/dL. GFR, Estimated >60 >60 mL/min/1.7 3m2 06/26/2024 3:52 AM [facility] Blood Venipuncture / Unknown 06/26/2024 3:19 AM ZINC FURNACE CHARGER 06/26/2024 3:22 AM ZINC FURNACE CHARGER Rikki Pearson MD LAB_1 Performing Organization Address [facility] [facility] Co de Phone Number [address] * Hepatitis C Antibody, with Reflex (06/26/2024 3:19 AM ZINC FURNACE CHARGER) Hepatitis C Antibody Negative (Non Reactive) Negative (Non Reactive) 06/26/2024 11:00 AM ZINC FURNACE CHARGER [facility] Comment:Antibodies to HCV no t detected. Does not exclude the possiblity of exposure to HCV. Blood Venipuncture / Unknown 06/26/2024 3:19 AM ZINC FURNACE CHARGER 06/26/2024 3:22 AM ZINC FURNACE CHARGER Rikki Pearson MD LAB_1 Performing Organization Address [facility] Phone Number [facility] [address] [place] [address] * HBSAG (HEPATITIS B SURFACE AG) (06/26/2024 3:19 AM ZINC FURNACE CHARGER) Hepatitis B Surface Antigen Negative (Non Reactive) Negative (Non Reactive) 06/26/2024 4:54 AM ZINC FURNACE CHARGER [facility] Blood Venipuncture / Unknown 06/26/2024 3:19 AM ZINC FURNACE CHARGER 06/26/2024 3:22 AM ZINC FURNACE CHARGER Rikki Pearson MD LAB_1 Performing Organization Address [facility] Co de Phone Number [address] * HEPATITIS A AB,IGM (06/26/2024 3:19 AM ZINC FURNACE CHARGER) Hepatitis A Antibody, IgM Negative (Non Reactive) Negative (Non Reactive) 06/26/2024 11:00 AM ZINC FURNACE CHARGER [facility] Comment:IgM anti-HAV not det ected. Does not exclude the possibility of exposure to or infection with HAV. Levels of IgM anti-HAV may be below the cut-off in early infection. Blood Venipuncture / Unknown 06/26/2024 3:19 AM ZINC FURNACE CHARGER 06/26/2024 3:22 AM ZINC FURNACE CHARGER Rikki Pearson MD LAB_1 [facility] [address] [place], [place] [address] * CT Angio Neck W IV Cont (06/26/2024 2:07 AM ZINC FURNACE CHARGER) Anatomical Region Laterality Modality Neck, Head, Vascular Computed To mography 06/26/2024 2:07 AM ZINC FURNACE CHARGER Narrative 06/26/2024 2:11 AM ZINC FURNACE CHARGER EXAM: CT ANGIO NECK W IV CONT LOCATION: [facility] DATE: 06/26/2024 INDICATION: Strangled, hoarse voice COMPARISON: None. CONTRAST: IOHEXOL 350 MG/ML IV SOLN 100 mL TECHNIQUE: Neck CT angiogram with IV contrast. Axial helical CT images of the neck vessels were obtained during the arterial phase of intravenous contrast administration. Axial helical 2D reconstructed images and multiplanar 3D MIP reconstructed images of the neck vessels were performed by the technologist. Dose reduction techniques were used. All stenosis measurements made according to NASCET criteria unless otherwise specified. FINDINGS: RIGHT CAROTID: No measurable stenosis or dissection. LEFT CAROTID: No measurable stenosis or dissection. VERTEBRAL ARTERIES: No focal stenosis or dissection. Dominant left and smaller right vertebral arteries. AORTIC ARCH: Bovine origin left common carotid artery. No significant stenosis at the origin of the great vessels. NONVASCULAR STRUCTURES: Visualized portions of the lungs are clear. Mild degenerative changes of the cervical spine, greatest at C5-C6. IMPRESSION: 1. No hemodynamically significant stenosis in the neck vessels. 2. No evidence for dissection. Procedure Note Casandra Aparicio MD - 06/26/2024 EXAM: CT ANGIO NECK W IV CONT LOCATION: [facility] DATE: 06/26/2024 INDICATION: Strangled, hoarse voice COMPARISON: None. CONTRAST: IOHEXOL 350 MG/ML IV SOLN 100 mL TECHNIQUE: Neck CT angiogram with IV contrast. Axial helical CT images ofthe neck vessels were obtained during the arterial phase of intravenouscontrast administration. Axial helical 2D reconstructed images andmultiplanar 3D MIP reconstructed images of the neck vessels were performedby the technologist. Dose reduction techniques were used. All stenosismeasurements made according to NASCET criteria unless otherwisespecified. FINDINGS: RIGHT CAROTID: No measurable stenosis or dissection. LEFT CAROTID: No measurable stenosis or dissection. VERTEBRAL ARTERIES: No focal stenosis or dissection. Dominant left andsmaller right vertebral arteries. AORTIC ARCH: Bovine origin left common carotid artery. No significantstenosis at the origin of the great vessels. NONVASCULAR STRUCTURES: Visualized portions of the lungs are clear. Milddegenerative changes of the cervical spine, greatest at C5-C6. IMPRESSION: 1. No hemodynamically significant stenosis in the neck vessels. 2. No evidence for dissection. Rikki Pearson MD RAD CT * Test (Urine), ED point of care (06/26/2024 12:54 AM ZINC FURNACE CHARGER) Urine Test - POC Negative Negative POCT Control Line Present, Clear Background - Internal control Yes POCT Cartridge Lot # [id number] POCT Urine 06/26/2024 12:5 4 AM ZINC FURNACE CHARGER Rikki Pearson MD ET POINT OF CARE TEST ENTER/EDIT ORDERABLES POCT * HIV 1/2 Ag/Ab 4th Generation (06/26/2024 12:49 AM ZINC FURNACE CHARGER) Pathologist [facility] HIV 1/2 Antigen/Antib radha (4th generation) Negative (Non Reactive) Negative (Non Reactive) 06/26/2024 1:44 AM ZINC FURNACE CHARGER [facility] Comment:HIV-1 p24 Antigen an d HIV-1/HIV-2 Antibody not detected Blood Venipuncture / Unknown 06/26/2024 12:49 AM ZINC FURNACE CHARGER 06/26/2024 12:55 AM ZINC FURNACE CHARGER Rikki Pearson MD LAB_[address] [address], [facility] * TSH with reflex to fT4 (not for treatment monitoring) (06/25/2024 8:21 PM ZINC FURNACE CHARGER) Pathologist [facility] TSH, Reflex 1.58 0.30 - 4.50 uIU/mL 06/26/2024 1:34 AM ZINC FURNACE CHARGER [facility] Blood Venipuncture / Unknown 06/25/2024 8:21 PM ZINC FURNACE CHARGER 06/25/2024 8:28 PM ZINC FURNACE CHARGER Rikki Pearson MD LAB_1 Performing Organization Address City/State/[facility] Co de Phone Number [facility] [address] [place] [address], [facility] * CT Angio Chest W IV Cont PE Study (06/25/2024 8:01 PM ZINC FURNACE CHARGER) Anatomical Region Laterality Modality Chest, Lung, Vascular Computed T omography 06/25/2024 8:01 PM ZINC FURNACE CHARGER Narrative 06/25/2024 8:15 PM ZINC FURNACE CHARGER EXAM: CT ANGIO CHEST W IV CONT PE STUDY LOCATION: [facility] DATE: 06/25/2024 INDICATION: Chest pain, elevated d dimer COMPARISON: 10/10/2008 TECHNIQUE: CT chest pulmonary angiogram during arterial phase injection of IV contrast. Multiplanar reformats and MIP reconstructions were performed. Dose reduction techniques were used. CONTRAST: IOHEXOL 350 MG/ML IV SOLN 100 mL FINDINGS: ANGIOGRAM CHEST: Mildly dilated main pulmonary artery. There are segmental and subsegmental pulmonary emboli in the right lower lobe and lingula. Thoracic aorta is negative for dissection. No CT evidence of right heart strain. LUNGS AND PLEURA: Normal. MEDIASTINUM/AXILLAE: Normal. CORONARY ARTERY CALCIFICATION: None. UPPER ABDOMEN: Hepatic steatosis. Left nephrolithiasis. MUSCULOSKELETAL: Normal. IMPRESSION: 1. There are acute segmental and subsegmental pulmonary emboli in the right lower lobe and lingula. No CT evidence of right heart strain. 2. Mildly dilated main pulmonary artery suggesting pulmonary hypertension. 3. Hepatic steatosis. 4. Left nephrolithiasis. Critical Result: New diagnosis of pulmonary embolism or DVT Finding was identified on 06/25/2024 8:04 PM ZINC FURNACE CHARGER. Dr. Hernandez was contacted by me on 06/25/2024 8:15 PM ZINC FURNACE CHARGER and verbalized understanding of the critical result. Procedure Note Stone Sorenson MD - 06/25/2024 EXAM: CT ANGIO CHEST W IV CONT PE STUDY LOCATION: [facility] DATE: 06/25/2024 INDICATION: Chest pain, elevated d dimer COMPARISON: 10/10/2008 TECHNIQUE: CT chest pulmonary angiogram during arterial phase injection ofIV contrast. Multiplanar reformats and MIP reconstructions were performed.Dose reduction techniques were used. CONTRAST: IOHEXOL 350 MG/ML IV SOLN 100 mL FINDINGS: ANGIOGRAM CHEST: Mildly dilated main pulmonary artery. There are segmentaland subsegmental pulmonary emboli in the right lower lobe and lingula.Thoracic aorta is negative for dissection. No CT evidence of right heartstrain. LUNGS AND PLEURA: Normal. MEDIASTINUM/AXILLAE: Normal. CORONARY ARTERY CALCIFICATION: None. UPPER ABDOMEN: Hepatic steatosis. Left nephrolithiasis. MUSCULOSKELETAL: Normal. IMPRESSION: 1. There are acute segmental and subsegmental pulmonary emboli in theright lower lobe and lingula. No CT evidence of right heart strain. 2. Mildly dilated main pulmonary artery suggesting pulmonaryhypertension. 3. Hepatic steatosis. 4. Left nephrolithiasis. Critical Result: New diagnosis of pulmonary embolism or DVT Finding was identified on 06/25/2024 8:04 PM ZINC FURNACE CHARGER. Dr. Hernandez was contacted by me on 06/25/2024 8:15 PM ZINC FURNACE CHARGER and verbalizedunderstanding of the critical result. Aminta Hernandez MD RAD CT * POC US Expanded IVC (06/25/2024 6:20 PM ZINC FURNACE CHARGER) Anatomical Region Laterality Modality Other Narrative 06/25/2024 7:31 PM ZINC FURNACE CHARGER Silver Hernandez MD 06/25/2024 7:31 PM [facility] Point of Care Ultrasound Interpretation POC US Expanded IVC Date/Time: 06/25/2024 7:31 PM Performed by: Silver Hernandez MD Authorized by: Aminta Hernandez MD Point of Care Ultrasound: Expanded IVC Indication: Abnormal EKG Window: Limited based on patient factors (inability to position appropriately, body habitus) Findings/ Impression (Within the context of limited [id number] ultrasound): Good Global Function and No Pericardial Effusion Aminta Hernandez MD RAD POC US * ECG 12-Lead STAT (06/25/2024 6:11 PM ZINC FURNACE CHARGER) Only the most recent of2 resultswithin the time period is included. Ventricular Rate 92 BPM MUSE GHP Atrial Rate 92 BPM MUSE GHP P-R Interval 138 ms MUSE GHP QRS Duration 80 ms MUSE GHP QT 390 ms MUSE GHP QTC 482 ms MUSE GHP P [place] 67 degrees MUSE GHP R [place] 137 degrees MUSE GHP T [place] -89 degrees MUSE GHP 06/25/2024 6:11 PM ZINC FURNACE CHARGER Narrative MUSE GHP - 06/26/2024 9:07 AM ZINC FURNACE CHARGER Sinus rhythm Biatrial enlargement Right axis deviation Pulmonary disease pattern Marked T wave abnormality, consider anterolateral ischemia Prolonged QT Abnormal ECG When compared with ECG of 25-JUN-2024 17:01, Questionable change in QRS axis Confirmed by Marta Llanos ([id number]) on 06/26/2024 9:07:29 AM Procedure Note Marta Llanos MD - 06/26/2024 Sinus rhythm Biatrial enlargement Right axis deviation Pulmonary disease pattern Marked T wave abnormality, consider anterolateral ischemia Prolonged QT Abnormal ECG When compared with ECG of 25-JUN-2024 17:01, Questionable change in QRS axis Confirmed by Marta Llanos ([id number]) on 06/26/2024 9:07:29 AM Aminta Hernandez MD EKG [facility] [address] [place] [address] * (ABNORMAL) Blood Gas, Venous Plus Chemistries POCT (06/25/2024 5:39 PM ZINC FURNACE CHARGER) PH, Venous 7.44(H) 7.31 - 7.41 06/25/2024 5:42 PM ZINC FURNACE CHARGER [facility] PCO2, Venous 41 40 - 52 mmHg 06/25/2024 5:42 PM [facility] PO2, Venous 22(L) 30 - 50 mmHg 06/25/2024 5:42 PM [facility] HCO3, Calculated 27.9 23.0 - 30.0 mmol/L 06/25/2024 5:42 PM [facility] Base Excess, Calculated 4.0(H) -2.0 - 2.0 mmol/L 06/25/2024 5:42 PM [facility] O2 Saturation Calc, Venous 40.0(L) 60.0 - 80.0 % 06/25/2024 5:42 PM [facility] Sodium, WB 138 136 - 145 mmol/L 06/25/2024 5:42 PM [facility] Potassium, Whole Blood 3.7 3.5 - 5.1 mmol/L 06/25/2024 5:42 PM [facility] Calcium Ionized Whole Blood 1.12(L) 1.18 - 1.32 mmol/L 06/25/2024 5:42 PM [facility] Glucose, Whole Blood 106 70 - 180 mg/dL 06/25/2024 5:42 PM [facility] HCT, ISTAT 46.0(H) 34.9 - 44.5 % 06/25/2024 5:42 PM [facility] Hgb, Calculated 15.6 12.0 - 18.0 g/dL 06/25/2024 5:42 PM [facility] Performing Location [facility] ED B 06/25/2024 5:42 PM [facility] Blood 06/25/2024 5:39 PM ZINC FURNACE CHARGER 06/25/2024 5:42 PM [facility] - 06/25/2024 5:42 PM ZINC FURNACE CHARGER The reference range for Ionized Calcium is based on a pH of 7.4. Ionized Calcium concentration increases approximately 0.05 mmol/L for each 0.1 pH unit decrease. Interface Provider LAB_1 Performing Organization Address City/State/[facility] Co de Phone Number [id number] [place] [address] * (ABNORMAL) D Dimer, Quantitative (06/25/2024 5:38 PM ZINC FURNACE CHARGER) D Dimer, Quant 3.36(H) <=0.50 ug/mL FEU 06/25/2024 7:06 PM [facility] Blood Venipuncture / Unknown 06/25/2024 5:38 PM ZINC FURNACE CHARGER 06/25/2024 5:47 PM ZINC FURNACE CHARGER [facility] - 06/25/2024 7:06 PM ZINC FURNACE CHARGER A D-dimer level <=0.50 ug/mL FEU in a patient with a low clinical pretest probability for a 1st episode of DVT can rule out lower extremity DVT (rate of DVT in next 3 months < 2%). For patients greater than 50 years of age, the application of age-adjusted cut- off values for D-Dimer may increase the specificity without significant effect on sensitivity. The results in this laboratory are reported as ug/mL FEU. The calculation for age adjusted cut off in ug/mL FEU = age in years x 0.01 ug/mL FEU. For example, the cut off for a 76 year old male is 76 x 0.01 ug/mL FEU = <=0.76 ug/mL FEU. Increased D-dimer is seen in thromboembolism, DIC, liver disease, renal disease, cardiac infarct and failure, cancer, , stroke, infection, recent surgery, hemorrhage and age > 70 years. D-dimer levels decrease with anticoagulation therapy and increasing clot age. Aminta Hernandez MD LAB_1 Performing Organization Address [facility] de Phone Number [address] * Lipase (06/25/2024 5:38 PM ZINC FURNACE CHARGER) Lipase 60 <=60 U/L 06/25/2024 6:1 4 PM [facility] Blood Venipuncture / Unknown 06/25/2024 5:38 PM ZINC FURNACE CHARGER 06/25/2024 5:47 PM ZINC FURNACE CHARGER Aminta Hernandez MD LAB_1 Performing Organization Address [facility] de Phone Number [address] * Alcohol (ethyl) Level (06/25/2024 5:38 PM ZINC FURNACE CHARGER) Ethyl Alcohol <0.01 <=0.01 g/dL 06/25/2024 6:14 PM ZINC FURNACE CHARGER [facility] Blood Venipuncture / Unknown 06/25/2024 5:38 PM ZINC FURNACE CHARGER 06/25/2024 5:47 PM ZINC FURNACE CHARGER [facility] 06/25/2024 6:14 PM ZINC FURNACE CHARGER For medical purposes only; not valid for forensic, legal, or employment use. Aminta Hernandez MD LAB_1 [address] * Hgb A1C (06/25/2024 5:38 PM ZINC FURNACE CHARGER) Hemoglobin A1C 5.1 <=5.6 % 06/27/2024 10:49 AM ZINC FURNACE CHARGER [facility] Estimated Average Glucose (Calc) 100 < 117 mg/dL 06/27/2024 10:49 AM ZINC FURNACE CHARGER [facility] Comment:Estimated average gl ucose (eAG) converts A1c into glucose units (mg/dL) and estimates average glucose over the past approximately 3 months. The eAG reference interval (<117 mg/dL) corresponds to an A1c of <5.7%. Blood Venipuncture / Unknown 06/25/2024 5:38 PM ZINC FURNACE CHARGER 06/25/2024 5:47 PM ZINC FURNACE CHARGER Chad Wood MD LAB_1 Performing Organization Address [facility] Co de Phone Number [facility] [address] * Pap Smear (10/03/2014 9:37 AM CDT) 10/03/2014 9:37 AM CDT Narrative HP CONVERSION - 10/10/2014 3:16 [place] [address] FINAL GYNECOLOGICAL CYTOLOGY REPORT Pathology #: [id number] Date Obtained: 10/03/2014 Date Received: 10/04/2014 INTERPRETATION/RESULTS: Negative for Intraepithelial Lesion or Malignancy. SPECIMEN ADEQUACY: Satisfactory for Evaluation. Endocervical cells/transformation zone component present. Verified on 10/10/2014 by MOLLY VELASQUEZ(ASCP) (electronic signature) CLINICAL NOTES: Abnormal bleeding: No, LMP: 09/26/14, Hormonal [place]: No, Previous abnormal: yes, Other [place]: LEEP 2004 LIQUID BASED PAP SMEAR SPECIMEN TYPE: CERVICAL & HPV REGARDLESS OF PAP RESULT PLEASE NOTE: The pap smear is a screening test designed to aid in the detection of cervical cancer and its precursor lesions. It is not a diagnostic procedure and should not be used as the sole means of detecting cervical cancer. Both false-positive and false-negative reports may occur. End of Report Elsa Farmer APRN, [employer] LAB_1 HP CONVERSION from Last 3 Months or Most Recently Relevant to Health Maintenance Advance Directives * Full Code (Latest Code Status on File) Date Activated Date Inactivated Comments 06/26/2024 12:59 AM 06/28/2024 4:37 PM Care Teams Seo Analyst Relationship Specialty Start Date End Date No Primary/Referring, Adrian PCP - General 06/28/24
--- OUTSIDE RECORDS SUMMARY | 2024-07-06 08:17 | XMS_ITS | Clinical Summary ---
Author Organization [employer] [facility] [employer] [facility] Address [place], [place] [address] Care Team Providers Care Environmental Emergencies Assistant Name Role Phone Rima Florence DO Primary Care Provider Allergies No known active allergies Medications * This document contains information received from the source organization and may not represent a complete record from that organization. magnesium oxide (MAG-OX 400) 400 mg tablet Take 1 tablet by mouth once daily. 0 02/22/20 20 Active metoprolol succinate (TOPROL XL) 25 mg Sustained-Release tabletIndications:PS VT (paroxysmal supraventricular tachycardia) (HC) TAKE ONE-HALF TABLET BY MOUTH DAILY 15 Tablet 03/11/20 21 Active hydrOXYzine HCL (ATARAX) 25 mg tablet Take 25-50 mg by mouth 3 times daily if needed for Anxiety. 10/22/19 23 Active tretinoin (RETIN-A) 0.025 % 0.025 % cream Apply topically to affected area(s). 04/09/20 22 Active Active Problems Problem Noted Date Diagnosed Date Anxiety and depression 08/15/2023 Paroxysmal SVT (supraventricular tachycardia) Alcohol dependence with withdrawal 12/31/2013 History of LEEP (loop electr osurgical excision procedure) of cervix complicating 07/15/2012 Depressive disorder, not elsewhere classified Social anxiety disorder Alcohol use disorder, moderate, in controlled en vironment Resolved Problems Problem Noted Date Diagnosed Date Resolved Date Post-dates 07/15/2012 024 Supervision of other normal 07/15/2012 08/15/2023 Normal vaginal delivery 07/15/201208/05 Supervision of other normal 10/19/2008 10/19/2008 Normal delivery 10/19/2008 08/15/2023 Alcohol abuse, unspecified 09/16/2005 0 08/15/2023 Immunizations Name Administration Dates Next Due COVID-19 vaccine ([employer] 30mcg/0.3mL) P F, MDV 09/30/2020,09/09/2020 Influenza, IIV4 07/22/2019 Family History Medical History Relation Name Comments Alcohol/Drug Father Alcohol/Drug Mother Psychiatric illness Mother Thyroid Disease Sister Relation Name Status Comments Father Mother Sister Social History Tobacco Use Types Packs/Day Years Used Date Smoking Tobacco: Former Cigarettes 0.5 22.9 0 07/21/1994 - 06/07/2017 Smokeless Tobacco: Never Tobacco Cessation:Counseling Given: Not Answered Alcohol Use Standard Drinks/Week Comments Yes 44 (1 standard drink = 0.6 oz pu re alcohol) daily drinks beer/vodka Humiliation, Afraid, Rape, and Kick questionnair e Answer Date Recorded Fear of Current or Ex-Partner No Emotionally Abused No 03/07/2020 Physically Abused No 03/07/2020 Sexually Abused No 03/07/2020 [facility] [place] of Occupat ional Health - Occupational Stress Questionnaire Answer Date Recorded Feeling of Stress Rather much 03/07/2020 Exercise Vital Sign Answer Date Recorde d Days of Exercise per Week 0 days 2019 Minutes of Exercise per Session 0 min 03/07/2020 Social Connections Answer Date Recorded Do you often feel lonely or isolated from those around you? 0 08/15/2023 Financial Resource Strain Answer Date R ecorded Difficulty of Paying Living Expenses 3 08/16/2023 Difficulty of Paying Living Expenses Not on file 08/16/2023 Food Insecurity Answer Date Recorded Do you worry your food will run out before you are able to buy more? 1 08/15/2023 Transportation Needs Answer Date Record ed Does lack of transportation keep you from medica l appointments? 1 08/15/2023 Does lack of transportation keep you from work, meetings or getting things that you need? 1 08/15/2023 Housing Stability Answer Date Recorded What is your housing situation today? 1 08/15/2023 Interpersonal Safety Answer Date Record ed Are you being hit, kicked, p ushed or yelled at (see row info)? No 08/15/2023 Interpersonal Safety Abuse 12 - 18 Not on file 08/15/2023 Interpersonal Safety Ambulatory Vulnerability No t on file 08/15/2023 Utilities Answer Date Recorded Do you have trouble paying f or utilities (for example, heat, electricity, water, phone)? 1 08/15/2023 Education Answer Date Recorded What is the highest level of school you have completed or the highest degree you have received? 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 on file Not on file Not on file Obstetrics History Para Term AB IAB SAB Ectopic Multiple Livin g Live Births 4 3 2 1 0 0 0 0 0 3 3 Date Outcome GA Total Labor Labor/2nd/3rd Weight Sex Type Anes PTL Daly A1 A5 Name Clin 002 Term Livin g 009 35w 5d F Vag Epidur al N Livin g 013 Term 40w 6d 3.86 kg (8 lb 8 oz) F Vag Livin g 9 9 OSBUR N,BAB Y GIRL Delivery Location:[facility] Last Filed Vital Signs Vital Sign Reading Time Taken Comments Blood Pressure 108/80 08/16/2023 3:51 PM CDT Pulse 72 08/16/2023 3:53 PM CDT Temperature 36.9 C (98.5 F) 08/16/2023 3:53 PM CDT Respiratory Rate 16 08/16/2023 3:51 PM CDT Oxygen Saturation 98% 08/16/2023 3:53 PM CDT Inhaled Oxygen Concentration - - Weight 56.5 kg (124 lb 8 oz) 08/15/2023 11:17 PM CDT Height 165.1 cm (5' 5) 08/15/2023 10:30 PM CDT Body Mass Index 20.72 08/15/2023 10:30 PM CDT Plan of Treatment Health Maintenance Due Date Last Done Comments Tdap 01/25/1991 Depression screening for age 12+ 1992 HIV for age 15-65 01/25/1995 Pneumococcal series for age 6-49 (1 of 2 - PCV) 01/25/1999 Tetanus booster 2000 Pap test for age 21-65 01/25/2001 BMI (ht and wt on same day) for age 18+ 02/21/2021 0 02/22/2020 COVID-19 vaccine series (3 season) 2024 09/30/2020, 09/09/2020 Influenza for age 9-49 02/06/2024 07/22/2019 Hepatitis C screening for age 18-79 Completed 09/16 Procedures Procedure Name Priority Date/Time Associated Diagnosis Comments ANTI HCV Routine 09/16/2005 2:55 PM CDT Hepatitis, Unspecified from Last 3 Months or Most Recently Relevant to Health Maintenance Results * ANTI HCV (09/16/2005 2:55 PM CDT) ANTI HCV Non-reactiv e [facility] Blood specimen (specimen) BLOOD SPECIMEN / Unknown 09/16/2005 2:55 PM CDT 09/16/2005 2:45 PM CDT Narrative [facility] - 09/23/2005 8:05 AM CDT Testing Performed By [place], [place] us Sucharita Evangelistkkimmyi [facility] Final Re sult [facility] [address] [place] [address] from Last 3 Months or Most Recently Relevant to Health Maintenance Insurance [facility] [place] DEBBIEDONNA GARCIA [id number] Advance Directives * Full Code (Latest Code Status on File) Date Activated Date Inactivated Comments 08/15/2023 11:01 PM 08/16/2023 9:14 PM Question Answer Comments Code Status Discussion: Reviewed Preferences * Full Code Date Activated Date Inactivated Comments 07/23/2019 1:30 PM 07/24/2019 5:29 PM Question Answer Comments Code Status Discussion: Discussed * Full Code Date Activated Date Inactivated Comments 12/31/2013 7:21 PM 01/05/2014 1:22 PM * Full Code Date Activated Date Inactivated Comments 07/15/2012 12:44 PM 07/16/2012 9:37 PM * Full Code Date Activated Date Inactivated Comments 07/15/2012 7:48 AM 07/15/2012 12:44 PM Care Teams Environmental Emergencies Assistant Relationship Specialty Start Date End Date Rima Florence DO [address] [place] [address] PCP - General 02/22/20
--- OUTSIDE RECORDS SUMMARY | 2024-07-06 08:17 | XMS_ITS | Encounter Summary ---
Author Organization [facility] Address [address] [place] [address] Care Team Providers Care Soap Maker Name Role Phone No Primary/Referring, Phy Primary Care Provider Unavailable Reason for Visit * Reason Comments HEARTBEAT,IRREGULAR Encounter Details Date Type Department Care Team ([facility] Contact Info) Description 07/01/2024 Nurse Triage Careline [address] [place] [address] Unassigned, Provider [address] [place] [address] HEARTBEAT,IRREGULAR Social History Tobacco Use Types Packs/Day Years Used Date Smoking Tobacco: Some Days Cigarettes Last attempted to quit: 11/06/2011 Smokeless Tobacco: Never Comments:Smoking History Pac ks/day: Alcohol Use Standard Drinks/Week Comments No 0 (1 standard drink = 0.6 oz pur e alcohol) Abstinent as of 06/2013. [facility] Utilities Answer Date Recorded In the past 12 months has [employer], [employer], or water [employer] threatened to shut off services in your [...] any time in the past 12 m [facility], were you homeless or living in a custodial (including now)? Patient declined 06/27/2024 Sex and Gender Information Value Date Recorded Sex Assigned at Not on file Gender Identity Not on file Sexual Orientation Not on file documented as of this encounter Nursing Notes * Deja Morris - 07/01/2024 7:05 AM CST 7:05 AM Caller was transferred to a nurse. Verified patient identity: Yes Situation/Background (brief explanation of current symptoms/situation): Patient reports that she was in the hospital from 06/25/2024-06/28/2024 for alcohol withdrawal. She is having heart palpitations/shortness of breath. The symptoms started this morning. Patient declines recommendation despite care advice. Reviewed with patient pertinent medical history (as it related to the call): Yes Reviewed with patient pertinent medications (as they relate to call): Yes Reviewed with patient pertinent allergies (as they relate to call): N/A Reason for Disposition Shock suspected (e.g., cold/pale/clammy skin, too weak to stand, low BP, rapid pulse) Protocols used: Heart Rate and Heartbeat [id number] It is possible that you are experiencing a harmful medical condition for which staying home, doctor's office, or urgent care is not a safe place for your symptoms. Any delay in your care such as waiting for an appointment or being seen in the wrong place could be harmful to your health. You have the right to refuse my recommendation but I need to make sure you understand. Do you understand? Yes Advised patient/caller to call back CareLine if there are further questions or concerns. The CareLine is available 28/12. Deja Christy RN Careline 7:11 AM 07/01/2024 OFF TRUCK DRIVER * Janell Cardona - 07/01/2024 7:04 AM CST Verified patient using 3 identifiers: Yes Caller reports the following red flag symptoms: heart palpitations Plan: Transferred directly to a CareLine RN. OFF TRUCK DRIVER documented in this encounter Plan of Treatment Upcoming Encounters Date Type Department Care Team (Late st Contact Info) Description 07/31/2024 2:30 PM ROLLOFF TRUCK DRIVER Appointment [facility] Cardiac Non-Invasive Lab [address] [place] [address] 08/18/2024 11:00 AM CDT Appointment [facility] Cardiology [address] [place] [address] Chad Wood MD [address] [place] [address] documented as of this encounter Visit Diagnoses Not on filedocumented in this encounter Care Teams Soap Maker Relationship Specialty Start Date End Date No Primary/Referring, Phy PCP - General 06/28/24 documented as of this encounter
--- OUTSIDE RECORDS SUMMARY | 2024-07-06 08:17 | XMS_ITS | Encounter Summary ---
Author Organization [facility] Address [address] [address] Phone Care Team Providers Care Light Oil Operator Name Role Phone Rima Florence Primary Care Provider [phone] Reason for Visit * Reason Comments Other Encounter Details Date Type Department Care Team (Late st Contact Info) Description 06/16/2024 11:30 AM COLD WORKING INSPECTOR Office Visit [facility] [address] [phone] Stone Caceres PA-C [address] [place] [id number] Pain of lower extremity, unspecified laterality (Primary Dx) Social History Tobacco Use Types Packs/Day Years [...] Sign Reading Time Taken Comments Blood Pressure 117/82 06/16/2024 11:34 AM COLD WORKING INSPECTOR Pulse 111 06/16/2024 11:34 AM COLD WORKING INSPECTOR Temperature - - Respiratory Rate 24 06/16/2024 11:34 AM COLD WORKING INSPECTOR Oxygen Saturation 98% 06/16/2024 11:34 AM COLD WORKING INSPECTOR Inhaled Oxygen Concentration - - Weight - - Height - - Body Mass Index - - documented in this encounter Functional Status * [...] Valentín Enciso RN documented in this encounter Patient Instructions * Patient Instructions* Stone Caceres PA-C - 06/16/2024 11:30 AM COLD WORKING INSPECTOR To schedule needed follow up at any [facility] or for questions related to your visit, pleasecall [phone] during normal operating hours. WORKING INSPECTOR documented in this encounter Progress Notes * Stone Caceres PA-C - 06/16/2024 11:30 AM CST [facility] Office Visit Christopher is a 44 year old female who presents for Other Subjective: Pt brought back to room upon arrival, vitals taken, Pt having sxs of a blood clot in the Lt calf for a week. Started with redness and inflamed and a rash, now looks like a vein has collapsed, painful.Provider notified immediately. Spoke with Provider DT- requested pt to go to the ED for evaluation. WORKING INSPECTOR documented in this encounter Miscellaneous Notes * Clinical Note - Ольга Victoria RN - 06/16/2024 11:30 AM CST Pt brought back to room upon arrival, vitals taken, Pt having sxs of a blood clot in the Lt calf for a week. Started with redness and inflamed and a rash, now looks like a vein has collapsed, painful.Provider notified immediately. Spoke with Provider DT- requested pt to go to the ED for evaluation. WORKING INSPECTOR documented in this encounter Plan of Treatment Not on file documented as of this encounter Visit Diagnoses Diagnosis Pain of lower extremity, unspecified laterality- Primary documented in this encounter Additional Health Concerns Infection Onset Date Last Indicated Resolved Time COVID-19 Confirmed 06/03/2024 06/03/2024 9:26 AM COLD WORKING INSPECTOR documented as of this encounter Care Teams Light Oil Operator Relationship Specialty Start Date End Date Rima Florence DO [address] [address] PCP - General Family Medicine 06/16/24 documented as of this encounter
--- OUTSIDE RECORDS SUMMARY | 2024-07-06 08:17 | XMS_ITS | Encounter Summary ---
Author Organization [facility] Address [address] [place] [address] Care Team Providers Care Flatbed Owner Operator Name Role Phone No Primary/Referring, Phy Primary Care Provider Unavailable Reason for Visit * Reason Comments Anticoagulation: DOAC Encounter Details Date Type Department Care Team ([facility] Contact Info) Description 07/03/2024 Telephone [facility] [id number] [address] [place] [phone] No Primary/Referring , Phy Anticoagulation: DOAC Social History Tobacco Use Types Packs/Day Years Used Date Smoking Tobacco: Some Days Cigarettes Last attempted to quit: 11/06/2011 Smokeless Tobacco: Never Comments:Smoking History Pac ks/day: Alcohol Use Standard Drinks/Week Comments No 0 (1 standard drink = 0.6 oz pur e alcohol) Abstinent as of 06/2013. [facility] Utilities Answer Date Recorded In the past 12 months has [facility] [employer], [employer], or water [employer] threatened to shut off services in your [...] any time in the past 12 m [facility], were you homeless or living in a snf (including now)? Patient declined 06/27/2024 Sex and Gender Information Value Date Recorded Sex Assigned at Not on file Gender Identity Not on file Sexual Orientation Not on file documented as of this encounter Nursing Notes * Maureen Escalera RN - 07/03/2024 8:42 AM CST Chart reviewed. Patient remains on the anticoagulant, but care is managed by an outside clinician/health system: Change the anticoagulant to historical LITIES SPECIALIST documented in this encounter Plan of Treatment Upcoming Encounters Date Type Department Care Team (Late st Contact Info) Description 07/31/2024 2:30 PM FACILITIES SPECIALIST Appointment [facility] Cardiac Non-Invasive Lab [address] [place] [address] 08/18/2024 11:00 AM CDT Appointment [facility] Cardiology [address] [place] [address] Chad Wood MD [address] [place] [address] documented as of this encounter Visit Diagnoses Not on filedocumented in this encounter Care Teams Flatbed Owner Operator Relationship Specialty Start Date End Date No Primary/Referring, Phy PCP - General 06/28/24 documented as of this encounter
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
--- OUTSIDE RECORDS SUMMARY | 2024-07-06 08:18 | XMS_ITS | Encounter Summary ---
Author Organization [employer] Address [address], [place] [address] Care Team Providers Care College Athletic Director Name Role Phone Unavailable Primary Care Provider Unavailabl e Reason for Visit * Auth/Cert (Routine) Specialty Diagnoses / Procedures Referred By Paulie t Referred To Contact Diagnoses Non-ST elevation (NSTEMI) myocardial infarction (HRC) Near syncope Alcohol withdrawal syndrome with complication (HRC) Near syncope Alcohol withdrawal syndrome with complication (HRC) Non-ST elevation (NSTEMI) myocardial infarction (HRC) Referral ID Status Reason Start Date Expiration Date Visits Re quested Visits Authorized [id number] 1 1 Encounter Details Date Type Department Care Team (Late st Contact Info) Description 06/26/2024 1:10 AM MICROSYSTEMS ENGINEER Ancillary Procedure [facility] [address] [address] Social History Tobacco Use Types Packs/Day Years Used Date Smoking Tobacco: Some Days Cigarettes Last attempted to quit: 11/06/2011 Smokeless Tobacco: Never Comments:Smoking History Pac ks/day: Alcohol Use Standard Drinks/Week Comments No 0 (1 standard drink = 0.6 oz pur e alcohol) Abstinent as of 06/2013. [facility] Utilities Answer Date Recorded In the past 12 months has e [employer], gas, oil, or water [employer] threatened to shut off services in your [...] any time in the past 12 m [facility], were you homeless or living in a halfway (including now)? Patient declined 06/27/2024 Sex and Gender Information Value Date Recorded Sex Assigned at Not on file Gender Identity Not on file Sexual Orientation Not on file documented as of this encounter Plan of Treatment Upcoming Encounters Date Type Department Care Team (Late st Contact Info) Description 07/31/2024 2:30 PM MICROSYSTEMS ENGINEER Appointment [facility] Cardiac Non-Invasive Lab [address] [place] [address] 08/18/2024 11:00 AM CDT Appointment [facility] Cardiology [address] [place] [address] Chad Wood MD [address] [place] [address] documented as of this encounter Procedures Procedure Name Priority Date/Time Associated Diagnosis Comments CT ANGIO NECK W IV CONT STAT 06/26/2024 2:07 AM MICROSYSTEMS ENGINEER documented in this encounter Visit Diagnoses Not on filedocumented in this encounter Administered Medications Inactive Administered Medications - up to 3 most recent administrations Medication Order MAR Action Action Date Dose Rate Site iohexol (OMNIPAQUE 350) 350 MG/ML injection 100 mL 100 mL, Intravenous, ONCE, On 06/26/24 at 0230, For 1 dose Given 06/26/2024 2:07 AM MICROSYSTEMS ENGINEER 100 mL documented in this encounter
--- OUTSIDE RECORDS SUMMARY | 2024-07-06 08:18 | XMS_ITS | Encounter Summary ---
Author Organization [employer] Address [address], [place] [address] Care Team Providers Care Financial Health Counselor Name Role Phone Jessica Michel DO Primary Care Provider [phone] Reason for Visit * Auth/Cert (Routine) Specialty Diagnoses / Procedures Referred By [employer]koko t Referred To Contact Diagnoses Non-ST elevation (NSTEMI) myocardial infarction (HRC) Near syncope Alcohol withdrawal syndrome with complication (HRC) Near syncope Alcohol withdrawal syndrome with complication (HRC) Non-ST elevation (NSTEMI) myocardial infarction (HRC) Referral ID Status Reason Start Date Expiration Date Visits Re quested Visits Authorized [id number] 1 1 Encounter Details Date Type Department Care Team (Late st Contact Info) Description 06/25/2024 7:40 PM TUBE DISPATCHER Ancillary Procedure [facility] [address] [address] Social History Tobacco Use Types Packs/Day Years [...] st Contact Info) Description 07/31/2024 2:30 PM TUBE DISPATCHER Appointment [facility] Cardiac Non-Invasive Lab [address] [place] [address] 08/18/2024 11:00 AM CDT Appointment [facility] Cardiology [address] [place] [address] Chad Wood MD [address] [place] [address] documented as of this encounter Procedures Procedure Name Priority Date/Time Associated Diagnosis Comments CT ANGIO CHEST W IV CONT PE STUDY STAT 06/25/2024 8:01 PM TUBE DISPATCHER documented in this encounter Visit Diagnoses Not on filedocumented in this encounter Administered Medications Inactive Administered Medications - up to 3 most recent administrations Medication Order MAR Action Action Date Dose Rate Site iohexol (OMNIPAQUE 350) 350 MG/ML injection 100 mL 100 mL, Intravenous, ONCE, On 06/25/24 at 2015, For 1 dose Given 06/25/2024 7:52 PM TUBE DISPATCHER 100 mL documented in this encounter Care Teams Financial Health Counselor Relationship Specialty Start Date End Date Jessica Michel DO [address] [place] [address] PCP - General Family Practice 01/26/22 06/25/24 documented as of this encounter
--- OUTSIDE RECORDS SUMMARY | 2024-07-06 08:18 | XMS_ITS | Encounter Summary ---
Author Organization [employer] Address [address], [place] [address] Care Team Providers Care Vial Gauger Name Role Phone Unavailable Primary Care Provider [...] Expiration Date Visits Re quested Visits Authorized [id number] 1 1 Encounter Details Date Type Department Care Team (Late st Contact Info) Description 06/26/2024 3:45 PM MILLING MACHINIST Ancillary Procedure [facility] Radiology Ultrasound [address] [place] [address] Social History Tobacco Use Types Packs/Day Years Used Date Smoking Tobacco: Some Days Cigarettes Last attempted to quit: 11/06/2011 Smokeless Tobacco: Never Comments:Smoking History Pac ks/day: Alcohol Use Standard Drinks/Week Comments No 0 (1 standard drink = 0.6 oz pur e alcohol) Abstinent as of 06/2013. [facility] Utilities Answer Date Recorded In the past 12 months has e [employer], gas, oil, or water [employer] threatened to shut off services in your [...] any time in the past 12 m [facility], were you homeless or living in a nursing home (including now)? Patient declined 06/27/2024 Sex and Gender Information Value Date Recorded Sex Assigned at Not on file Gender Identity Not on file Sexual Orientation Not on file documented as of this encounter Plan of Treatment Upcoming Encounters Date Type Department Care Team (Late st Contact Info) Description 07/31/2024 2:30 PM MILLING MACHINIST Appointment [facility] Cardiac Non-Invasive Lab [address] [place] [address] 08/18/2024 11:00 AM CDT Appointment [facility] Cardiology [address] [place] [address] Chad Wood MD [address] [place] [address] documented as of this encounter Procedures Procedure Name Priority Date/Time Associated Diagnosis Comments US VENOUS BILAT LOWER EXTREM DOPPLER Discharge Decision 06/26/2024 9:39 PM MILLING MACHINIST documented in this encounter Results * US Venous Bilat Lower Extrem Doppler (06/26/2024 9:39 PM MILLING MACHINIST) Anatomical Region Laterality Modality Vascular, Leg Ultrasound 06/26/2024 9:39 PM MILLING MACHINIST Narrative 06/26/2024 10:34 PM MILLING MACHINIST EXAM: US VENOUS BILAT LOWER EXTREM DOPPLER LOCATION: [facility] DATE: 06/26/2024 INDICATION: Rule out DVT, [...] US VENOUS BILAT LOWER EXTREM DOPPLER LOCATION: [facility] DATE: 06/26/2024 INDICATION: Rule out DVT, [...] thrombosis in the bilateral lower extremities. Casey LIANG US documented in this encounter Visit Diagnoses Not on filedocumented in this encounter
--- OUTSIDE RECORDS SUMMARY | 2024-07-06 08:18 | XMS_ITS | Encounter Summary ---
Author Organization [facility] Address [address] [address] Phone Care Team Providers Care Invertebrate Paleontologist Name Role Phone Rima Florence DO Primary Care Provider [phone] Encounter Details Date Type Department Care Team (Latest Contact Info) Description 06/23/2024 Travel Social History Tobacco Use Types Packs/Day Years Used Date Smoking Tobacco: Every Day Cigarettes 1 20 Smokeless Tobacco: Never Comments:Pt has been discuss ing quitting smoking with her personal doctor Alcohol Use Standard Drinks/Week Comments Yes 12 (1 standard drink = 0.6 oz pure alcohol) Hx of ETOH abuse, states she is drinking 1 litre of vodka per day 08/15/23 [facility] Custom IPV Answer Date Recorded Do you feel UNSAFE in any of your personal relationships with your family members or any other acquaintances? Deferred 2024 Comments No Sex and Gender Information Value Date Recorded Sex Assigned at Female 01/05/2021 12:17 PM CDT Legal Sex Female 8:45 AM CDT Gender Identity Female 01/05/2021 12:17 PM CDT Sexual Orientation Not on file documented as of this encounter Functional Status * Patient's Vision Adequate to Safely Complete Daily Activities Answer Date of Assessment Author Yes 06/23/2024 3:38 AM Ryanne Pizano, RN * Patient's Memory Adequate to Safely Complete Daily Activities Answer Date of Assessment Author Yes 06/23/2024 3:38 AM Ryanne Pizano, RN documented as of this encounter Mental Status * Patient's Judgment Adequate to Safely Complete Daily Activities Answer Entry Date Author No 06/23/2024 3:38 AM HOT METAL CHARGER Ryanne Butler, JAQUELINE documented in this encounter Plan of Treatment Not on file documented as of this encounter Visit Diagnoses Not on filedocumented in this encounter Additional Health Concerns Infection Onset Date Last Indicated Resolved Time COVID-19 Confirmed 06/03/2024 06/03/2024 9:26 AM HOT METAL CHARGER documented as of this encounter Care Teams Invertebrate Paleontologist Relationship Specialty Start Date End Date Rima Florence DO [address] [address] PCP - General Family Medicine 06/16/24 documented as of this encounter
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
--- OUTSIDE RECORDS SUMMARY | 2024-07-06 08:18 | XMS_ITS | Encounter Summary ---
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 heparinized saline used to flush catheters [...] consists 2% chlorhexidine/70%isopropyl alcohol 06/27/2024 09:40:45 AM: [place] of heparinized saline used to flushcatheters 06/27/2024 [...] 09:52:57 AM: Patient & Procedure Verification Completed withGonzaloan 06/27/2024 09:52:57 AM: TIME OUT performed by physician and staff 06/27/2024 09:53:26 AM: Case Start 06/27/2024 09:53:33 AM: PD: 1% Lidocaine to Right Wrist Area 06/27/2024 09:53:49 AM: PD: Ultrasound used for access 06/27/2024 09:53:50 AM: : Rt Radial Artery accessed, 6FR Glidesheathinserted 06/27/2024 09:54:01 AM: 6F SW MEG MORALES SW 6F 06/27/2024 09:54:07 AM: 5F [...] to Inventory: DRAPE ZERO GRAVITY SHE GLIDE CASIMIROER SW 6F CATH DIAG 5F TIG 4.0 GW INQWIRE .035 210CM CATH DIAG 5FR JR4.0 OMNIPAQUE 350MG 100ML Chad Wood MD [facility] CATH LA B/RH Performing Organization Address City/[facility]/ZIP Co de Phone Number [facility] [address] [place] [address] * HIL & Volume Check (No Aliquot) (06/27/2024 8:39 AM MANAGER SEMICONDUCTOR) Blood Venipuncture / Unknown 06/27/2024 8:39 AM MANAGER SEMICONDUCTOR 06/27/2024 8:44 AM MANAGER SEMICONDUCTOR Carrie Askew MD LAB_[address] [address], [facility] * XA Unfractionated Heparin (06/27/2024 8:39 AM MANAGER SEMICONDUCTOR) Heparin 10a Level (Unfractionated Hep) 0.36 0.30 - 0.70 IU/mL 06/27/2024 9:01 AM [facility] Blood Venipuncture / Unknown 06/27/2024 8:39 AM MANAGER SEMICONDUCTOR 06/27/2024 8:44 AM MANAGER SEMICONDUCTOR Carrie Askew MD LAB_1 Performing Organization Address [facility]/ZIP Co de Phone Number [address] * Phosphorus (06/27/2024 8:39 AM MANAGER SEMICONDUCTOR) Phosphorus 3.8 2.3 - 4.7 mg/dL 06/27/2024 9:10 AM [facility] Blood Venipuncture / Unknown 06/27/2024 8:39 AM MANAGER SEMICONDUCTOR 06/27/2024 8:44 AM MANAGER SEMICONDUCTOR Casey Velasco MD LAB_1 Performing Organization Address [facility] Co de Phone Number [address] * (ABNORMAL) Complete Blood Count-No Diff (06/27/2024 8:39 AM MANAGER SEMICONDUCTOR) WBC 3.7 3.5 - 10.5 x10(9)/L 06/27/2024 8:54 AM [facility] RBC 4.18 3.90 - 5.03 x10(12)/L 06/27/2024 8:54 AM [facility] Hemoglobin 12.8 12.0 - 15.5 g/dL 06/27/2024 8:54 AM [facility] HCT 39.6 34.9 - 44.5 % 06/27/2024 8:54 AM [facility] MCV 94.7 80.0 - 100.0 fL 06/27/2024 8:54 AM [facility] MCH 30.6 27.6 - 33.3 pg 06/27/2024 8:54 AM [facility] MCHC 32.3 31.5 - 35.2 g/dL 06/27/2024 8:54 AM [facility] RDW 15.4 11.9 - 15.5 % 06/27/2024 8:54 AM [facility] Platelets 113(L) 150 - 450 x10(9)/L 06/27/2024 8:54 AM [facility] Automated NRBC 0 <=0 /100 WBC 06/27/2024 8:54 AM [facility] Blood Venipuncture / Unknown 06/27/2024 8:39 AM MANAGER SEMICONDUCTOR 06/27/2024 8:44 AM MANAGER SEMICONDUCTOR Casey Velasco MD LAB_1 Performing Organization Address City/State/[facility] Co de Phone Number [id number] [place] [address] * (ABNORMAL) Comprehensive Metabolic Panel (06/27/2024 8:39 AM MANAGER SEMICONDUCTOR) Sodium 135(L) 136 - 145 mmol/L 06/27/2024 9:10 AM [facility] Potassium 4.2 3.5 - 5.1 mmol/L 06/27/2024 9:10 AM [facility] Chloride 105 98 - 109 mmol/L 06/27/2024 9:10 AM [facility] CO2 22 20 - 29 mmol/L 06/27/2024 9:10 AM [facility] Anion Gap 8 6 - 16 mmol/L 06/27/2024 9:10 AM [facility] Calcium 8.4 8.4 - 10.4 mg/dL 06/27/2024 9:10 AM [facility] BUN 7 7 - 26 mg/dL 06/27/2024 9:10 AM [facility] Creatinine 0.56 0.55 - 1.02 mg/dL 06/27/2024 9:10 AM [facility] Alkaline Phosphatase 70 40 - 150 U/L 06/27/2024 9:10 AM [facility] AST (SGOT) 32 10 - 40 U/L 06/27/2024 9:10 AM [facility] ALT (SGPT) 63(H) <=55 U/L 06/27/2024 9:10 AM [facility] Bilirubin, Total 0.4 0.2 - 1.2 mg/dL 06/27/2024 9:10 AM [facility] Protein, Total 6.0(L) 6.4 - 8.3 g/dL 06/27/2024 9:10 AM [facility] Albumin 3.1(L) 3.5 - 5.0 g/dL 06/27/2024 9:10 AM [facility] Glucose 82 70 - 100 mg/dL 06/27/2024 9:10 AM [facility] Comment:The given reference range is for the fasting state. Non-fasting reference range for glucose is 70 - 180 mg/dL. GFR, Estimated >60 >60 mL/min/1.7 3m2 06/27/2024 9:10 AM [facility] Blood Venipuncture / Unknown 06/27/2024 8:39 AM MANAGER SEMICONDUCTOR 06/27/2024 8:44 AM MANAGER SEMICONDUCTOR Casey Velasco MD LAB_[address] * Lipid Panel & Direct LDL (if Needed) (06/27/2024 8:39 AM MANAGER SEMICONDUCTOR) Cholesterol 175 0 - 199 mg/dL 06/27/2024 9:10 AM [facility] Triglyceride 49 <=149 mg/dL 06/27/2024 9:10 AM [facility] HDL Cholesterol 96 >=40 mg/dL 9:10 AM [facility] LDL, Calculated 69 <130 mg/dL 9:10 AM [facility] Non HDL Chol, Calculated 79 <=159 mg/dL 06/27/2024 9:10 AM [facility] Cholesterol/HDL Ratio 1.8 <=5.0 06/27/2024 9:10 AM [facility] Blood Venipuncture / Unknown 06/27/2024 8:39 AM MANAGER SEMICONDUCTOR 06/27/2024 8:44 AM MANAGER SEMICONDUCTOR Chad Wood MD LAB_[address] * Magnesium (06/27/2024 8:39 AM MANAGER SEMICONDUCTOR) Magnesium 2.0 1.6 - 2.6 mg/dL 06/27/2024 9:10 AM [facility] Blood Venipuncture / Unknown 06/27/2024 8:39 AM MANAGER SEMICONDUCTOR 06/27/2024 8:44 AM MANAGER SEMICONDUCTOR Casey Velasco MD LAB_1 Performing Organization Address [facility] Co de Phone Number [address] * INPATIENT TELEMETRY MONITORING (06/27/2024 8:13 AM MANAGER SEMICONDUCTOR) TELE P-R INTERVAL 0.14 MUSE [facility] TELE QRS DURATION 0.09 MUSE [facility] TELE R-R INTERVAL 0.69 MUSE [facility] TELE QT 0.38 MUSE [facility] TELE QTC 0.45 MUSE [facility] TELE INTERPRETATION Sinus Rhythm MM, RN MUSE [facility] 06/27/2024 8:13 AM MANAGER SEMICONDUCTOR Narrative [facility] - 06/27/2024 4:13 PM MANAGER SEMICONDUCTOR Sinus Rhythm MM, RN Interface Provider EKG Performing Organization Address [facility] de Phone Number [facility] [address] [place] [address] * HIL & Volume Check (No [place]) (06/27/2024 1:49 AM MANAGER SEMICONDUCTOR) Blood Venipuncture / Unknown 06/27/2024 1:49 AM MANAGER SEMICONDUCTOR 06/27/2024 1:52 AM MANAGER SEMICONDUCTOR Carrie Askew MD LAB_1 Performing Organization Address [facility] de Phone Number [address] * (ABNORMAL) XA Unfractionated Heparin (06/27/2024 1:49 AM MANAGER SEMICONDUCTOR) Heparin 10a Level (Unfractionate d Hep) 0.21(L) 0.30 - 0.70 IU/mL 06/27/2024 2:32 AM MANAGER SEMICONDUCTOR [facility] Blood Venipuncture / Unknown 06/27/2024 1:49 AM MANAGER SEMICONDUCTOR 06/27/2024 1:52 AM MANAGER SEMICONDUCTOR Carrie Askew MD LAB_1 Performing Organization Address [facility] Co de Phone Number [address] * C.Difficile Toxin,Molecular Detection,This order expires in 24 hours. Do NOT collect after: 06/28/2024; at: 12:37 AM (06/27/2024 1:25 AM MANAGER SEMICONDUCTOR) C.difficile Not Detected Not Detected 2:42 AM MANAGER SEMICONDUCTOR [facility] Comment:A single negative te st for C. difficile means the likelihood this organism is causing the diarrheal illness is extremely low. Therefore repeat testing within 7 days of the same diarrheal episode is strongly discouraged. Stool Non-blood Collection / Unknown 06/27/2024 1:25 AM MANAGER SEMICONDUCTOR 06/27/2024 1:30 AM MANAGER SEMICONDUCTOR Narrative [facility] - 06/27/2024 2:42 AM MANAGER SEMICONDUCTOR Methodology: Qualitative real-time PCR assay to detect the Clostridioides difficile toxin B gene. Chip Velázquez MD LAB_1 Performing Organization Address [facility] Co de Phone Number [facility] [address] * INPATIENT TELEMETRY MONITORING (06/26/2024 11:59 PM MANAGER SEMICONDUCTOR) TELE P-R INTERVAL 0.15 MUSE [facility] TELE QRS DURATION 0.08 MUSE [facility] TELE R-R INTERVAL 0.74 MUSE [facility] TELE QT 0.42 MUSE [facility] TELE QTC 0.49 MUSE [facility] TELE INTERPRETATION Sinus Rhythm MUSE [facility] 06/26/2024 11:5 9 PM MANAGER SEMICONDUCTOR Narrative [facility] - 06/27/2024 12:09 AM MANAGER SEMICONDUCTOR Sinus Rhythm Interface Provider EKG Performing Organization Address City/[facility]/ZIP Co de Phone Number MUSE P [address] [place] [address] * US Venous Bilat Lower Extrem Doppler (06/26/2024 9:39 PM MANAGER SEMICONDUCTOR) Anatomical Region Laterality Modality Vascular, Leg Ultrasound 06/26/2024 9:39 PM MANAGER SEMICONDUCTOR Narrative 06/26/2024 10:34 PM MANAGER SEMICONDUCTOR EXAM: US VENOUS BILAT LOWER EXTREM DOPPLER LOCATION: [facility] DATE: 06/26/2024 INDICATION: Rule out DVT, Edema [...] US VENOUS BILAT LOWER EXTREM DOPPLER LOCATION: [facility] DATE: 06/26/2024 INDICATION: Rule out DVT, Edema [...] the bilateral lower extremities. Casey Velasco MD [facility] * HIL & Volume Check (No [place]) (06/26/2024 6:24 PM MANAGER SEMICONDUCTOR) Blood Venipuncture / Unknown 06/26/2024 6:24 PM MANAGER SEMICONDUCTOR 06/26/2024 6:30 PM MANAGER SEMICONDUCTOR Casey Velasco MD LAB_[address] [address], [facility] * Potassium (06/26/2024 6:24 PM MANAGER SEMICONDUCTOR) Pathologist [facility] Potassium 3.8 3.5 - 5.1 mmol/L 06/26/2024 6:57 PM MANAGER SEMICONDUCTOR [facility] Blood Venipuncture / Unknown 06/26/2024 6:24 PM MANAGER SEMICONDUCTOR 06/26/2024 6:30 PM MANAGER SEMICONDUCTOR Casey Velasco MD LAB_1 Performing Organization Address [facility] de Phone Number [address] * (ABNORMAL) XA Unfractionated Heparin (06/26/2024 6:24 PM MANAGER SEMICONDUCTOR) Heparin 10a Level (Unfractionate d Hep) 0.14(L) 0.30 - 0.70 IU/mL 06/26/2024 6:45 PM MANAGER SEMICONDUCTOR [facility] Blood Venipuncture / Unknown 06/26/2024 6:24 PM MANAGER SEMICONDUCTOR 06/26/2024 6:30 PM MANAGER SEMICONDUCTOR Casey Velasco MD LAB_1 Performing Organization Address [facility] Phone Number [address] * Magnesium (06/26/2024 6:24 PM MANAGER SEMICONDUCTOR) Magnesium 2.3 1.6 - 2.6 mg/dL 06/26/2024 6:57 PM MANAGER SEMICONDUCTOR [facility] Blood Venipuncture / Unknown 06/26/2024 6:24 PM MANAGER SEMICONDUCTOR 06/26/2024 6:30 PM MANAGER SEMICONDUCTOR Casey Velasco MD LAB_1 Performing Organization Address [facility] Phone Number [address] * INPATIENT TELEMETRY MONITORING (06/26/2024 4:58 PM MANAGER SEMICONDUCTOR) TELE P-R INTERVAL 0.13 MUSE [facility] TELE QRS DURATION 0.08 MUSE [facility] TELE R-R INTERVAL 0.75 MUSE [facility] TELE QT 0.37 MUSE [facility] TELE QTC 0.43 MUSE [facility] TELE INTERPRETATION Sinus Rhythm Leanne Campos RN [facility] 06/26/2024 4:58 PM MANAGER SEMICONDUCTOR Narrative [facility] - 06/26/2024 5:22 PM MANAGER SEMICONDUCTOR Sinus Rhythm Leanne Campos RN Interface Provider EKG Performing Organization Address [facility] Co de Phone Number [facility] [address] [place] [address] * Potassium (06/26/2024 12:23 PM MANAGER SEMICONDUCTOR) Pathologist [facility] Potassium 3.5 3.5 - 5.1 mmol/L 06/26/2024 12:49 PM MANAGER SEMICONDUCTOR [facility] Blood Venipuncture / Unknown 06/26/2024 12:23 PM MANAGER SEMICONDUCTOR 06/26/2024 12:29 PM MANAGER SEMICONDUCTOR Casey Velasco MD LAB_1 Performing Organization Address [facility] de Phone Number [address] * HIL & Volume Check (No [place]) (06/26/2024 10:27 AM MANAGER SEMICONDUCTOR) Blood IV Start / Unknown 10:27 AM MANAGER SEMICONDUCTOR 06/26/2024 10:36 AM MANAGER SEMICONDUCTOR Rikki Pearson MD LAB_1 Performing Organization Address [facility] Co de Phone Number [address] * IV Insertion, LST Perform (06/26/2024 10:27 AM MANAGER SEMICONDUCTOR) [facility] IV INSERTION, LST PERFORM (LAB) Done 06/26/2024 1:00 PM [facility] Other Specimen Type Venipuncture Butterfly / Unknown 06/26/2024 10:27 AM MANAGER SEMICONDUCTOR 06/26/2024 11:13 AM MANAGER SEMICONDUCTOR Casey Velasco MD LAB_1 Performing Organization Address [facility] Co de Phone Number [address] * (ABNORMAL) XA Unfractionated Heparin (06/26/2024 10:27 AM MANAGER SEMICONDUCTOR) Heparin 10a Level (Unfractionate d Hep) 0.19(L) 0.30 - 0.70 IU/mL 06/26/2024 11:07 AM [facility] Blood IV Start / Unknown 10:27 AM MANAGER SEMICONDUCTOR 06/26/2024 10:36 AM MANAGER SEMICONDUCTOR Rikki Pearson MD LAB_1 [facility] [address] [place] [address], [facility] * EJECTION FRACTION (06/26/2024 8:54 AM MANAGER SEMICONDUCTOR) EF 34 % [facility] EF test type ECHO [facility] 06/26/2024 8:54 AM MANAGER SEMICONDUCTOR Rikki Pearson MD [facility]AG[facility]/RH Performing Organization Address City/[facility]/ZIP Co de Phone Number [facility] [address] [place] [address] * Echocardiogram (06/26/2024 8:54 AM MANAGER SEMICONDUCTOR) 06/26/2024 8:54 AM MANAGER SEMICONDUCTOR Narrative [facility] - 06/26/2024 1:18 PM MANAGER SEMICONDUCTOR Summary 1. Normal left ventricular chamber size; [...] HEART CENTER ECHO /RH Performing Organization Address [facility] de Phone Number [facility] [address] [place] [address] * MAGNESIUM (06/26/2024 6:33 AM MANAGER SEMICONDUCTOR) Pathologist [facility] Magnesium 1.7 1.6 - 2.6 mg/dL 06/26/2024 8:15 AM MANAGER SEMICONDUCTOR [facility] Blood Venipuncture / Unknown 06/26/2024 6:33 AM MANAGER SEMICONDUCTOR 06/26/2024 7:04 AM MANAGER SEMICONDUCTOR Casey Velasco MD LAB_1 Performing Organization Address [facility] Co de Phone [address] * (ABNORMAL) Troponin I (06/26/2024 6:33 AM MANAGER SEMICONDUCTOR) [facility] Troponin I 0.36(H) 0.00 - 0.03 ng/mL 06/26/2024 7:40 AM MANAGER SEMICONDUCTOR [facility] Blood Venipuncture / Unknown 06/26/2024 6:33 AM MANAGER SEMICONDUCTOR 06/26/2024 7:04 AM MANAGER SEMICONDUCTOR Rikki Pearson MD LAB_1 Performing Organization Address [facility] Phone [address] * HIL & Volume Check (No [place]) (06/26/2024 3:19 AM MANAGER SEMICONDUCTOR) Blood Venipuncture / Unknown 06/26/2024 3:19 AM MANAGER SEMICONDUCTOR 06/26/2024 3:22 AM MANAGER SEMICONDUCTOR Aminta Hernandez MD LAB_1 Performing Organization Address [facility] Co de Phone Number [address] * (ABNORMAL) XA Unfractionated Heparin (06/26/2024 3:19 AM MANAGER SEMICONDUCTOR) Heparin 10a Level (Unfractionate d Hep) <0.10(L) 0.30 - 0.70 IU/mL 06/26/2024 3:53 AM MANAGER SEMICONDUCTOR [facility] Blood Venipuncture / Unknown 06/26/2024 3:19 AM MANAGER SEMICONDUCTOR 06/26/2024 3:22 AM MANAGER SEMICONDUCTOR Aminta Hernandez MD LAB_1 Performing Organization Address [facility] Co de Phone Number [address] * Hepatitis C Antibody, with Reflex (06/26/2024 3:19 AM MANAGER SEMICONDUCTOR) Hepatitis C Antibody Negative (Non Reactive) Negative (Non Reactive) 06/26/2024 11:00 AM MANAGER SEMICONDUCTOR [facility] Comment:Antibodies to HCV no t detected. Does not exclude the possiblity of exposure to HCV. Blood Venipuncture / Unknown 06/26/2024 3:19 AM MANAGER SEMICONDUCTOR 06/26/2024 3:22 AM MANAGER SEMICONDUCTOR Rikki Pearson MD LAB_1 Performing Organization Address [facility] Phone Number [facility] [address] * HEPATITIS A AB,IGM (06/26/2024 3:19 AM MANAGER SEMICONDUCTOR) Hepatitis A Antibody, IgM Negative (Non Reactive) Negative (Non Reactive) 06/26/2024 11:00 AM MANAGER SEMICONDUCTOR [facility] Comment:IgM anti-HAV not det ected. Does not exclude the possibility of exposure to or infection with HAV. Levels of IgM anti-HAV may be below the cut-off in early infection. Blood Venipuncture / Unknown 06/26/2024 3:19 AM MANAGER SEMICONDUCTOR 06/26/2024 3:22 AM MANAGER SEMICONDUCTOR Rikki Pearson MD LAB_1 Performing Organization Address [facility] Co de Phone Number [facility] [address] * HBSAG (HEPATITIS B SURFACE AG) (06/26/2024 3:19 AM MANAGER SEMICONDUCTOR) Pathologist [facility] Hepatitis B Surface Antigen Negative (Non Reactive) Negative (Non Reactive) 06/26/2024 4:54 AM [facility] Blood Venipuncture / Unknown 06/26/2024 3:19 AM MANAGER SEMICONDUCTOR 06/26/2024 3:22 AM MANAGER SEMICONDUCTOR Rikki Pearson MD LAB_1 Performing Organization Address [facility]/ZIP Co de Phone Number [address] * (ABNORMAL) Liver Panel(Hepatic Function Panel) (06/26/2024 3:19 AM MANAGER SEMICONDUCTOR) Pathologist [facility] Alkaline Phosphatase 83 40 - 150 U/L 06/26/2024 3:52 AM [facility] Bilirubin, Total 0.6 0.2 - 1.2 mg/dL 06/26/2024 3:52 AM [facility] Bilirubin, Direct 0.2 0.0 - 0.5 mg/dL 06/26/2024 3:52 AM [facility] AST (SGOT) 64(H) 10 - 40 U/L 06/26/2024 3:52 AM [facility] ALT (SGPT) 100(H) <=55 U/L 06/26/2024 3:52 AM [facility] Protein, Total 6.0(L) 6.4 - 8.3 g/dL 06/26/2024 3:52 AM [facility] Albumin 3.2(L) 3.5 - 5.0 g/dL 06/26/2024 3:52 AM [facility] Blood Venipuncture / Unknown 06/26/2024 3:19 AM MANAGER SEMICONDUCTOR 06/26/2024 3:22 AM MANAGER SEMICONDUCTOR Rikki Pearson MD LAB_1 Performing Organization Address City/[facility]/ZIP Co de Phone Number [address] * (ABNORMAL) Basic Metabolic Panel (06/26/2024 3:19 AM MANAGER SEMICONDUCTOR) Pathologist [facility] Sodium 133(L) 136 - 145 mmol/L 06/26/2024 3:52 AM [facility] Potassium 3.3(L) 3.5 - 5.1 mmol/L 06/26/2024 3:52 AM [facility] Chloride 100 98 - 109 mmol/L 06/26/2024 3:52 AM [facility] CO2 21 20 - 29 mmol/L 06/26/2024 3:52 AM [facility] Anion Gap 12 6 - 16 mmol/L 06/26/2024 3:52 AM [facility] Calcium 8.1(L) 8.4 - 10.4 mg/dL 06/26/2024 3:52 AM [facility] BUN 6(L) 7 - 26 mg/dL 06/26/2024 3:52 AM [facility] Creatinine 0.60 0.55 - 1.02 mg/dL 06/26/2024 3:52 AM [facility] Glucose 100 70 - 100 mg/dL 06/26/2024 3:52 AM [facility] Comment:The given reference range is for the fasting state. Non-fasting reference range for glucose is 70 - 180 mg/dL. GFR, Estimated >60 >60 mL/min/1.7 3m2 06/26/2024 3:52 AM [facility] Blood Venipuncture / Unknown 06/26/2024 3:19 AM [employer] 06/26/2024 3:22 AM [facility] Rikki Pearson MD LAB_[email or web address] Performing Organization Address City/State/[facility] [place] [address], [facility] * (ABNORMAL) Complete Blood Count-No Diff (06/26/2024 3:19 AM [facility]) WBC 4.3 3.5 - 10.5 x10(9)/L 06/26/2024 3:29 AM [facility] RBC 4.12 3.90 - 5.03 x10(12)/L 06/26/2024 3:29 AM [facility] Hemoglobin 12.8 12.0 - 15.5 g/dL 06/26/2024 3:29 AM [facility] HCT 37.7 34.9 - 44.5 % 06/26/2024 3:29 AM [facility] MCV 91.5 80.0 - 100.0 fL 06/26/2024 3:29 AM [facility] MCH 31.1 27.6 - 33.3 pg 06/26/2024 3:29 AM [facility] MCHC 34.0 31.5 - 35.2 g/dL 06/26/2024 3:29 AM [facility] RDW 15.9(H) 11.9 - 15.5 % 06/26/2024 3:29 AM [facility] Platelets 142(L) 150 - 450 x10(9)/L 06/26/2024 3:29 AM [facility] Automated NRBC 0 <=0 /100 WBC 06/26/2024 3:29 AM [facility] Blood Venipuncture / Unknown 06/26/2024 3:19 AM MANAGER SEMICONDUCTOR 06/26/2024 3:22 AM MANAGER SEMICONDUCTOR Rikki Pearson MD LAB_1 Performing Organization Address City/[facility]/ZIP Co de Phone Number [address] * (ABNORMAL) Troponin I (06/26/2024 3:19 AM MANAGER SEMICONDUCTOR) Troponin I 0.42(H) 0.00 - 0.03 ng/mL 06/26/2024 3:57 AM [facility] Blood Venipuncture / Unknown 06/26/2024 3:19 AM MANAGER SEMICONDUCTOR 06/26/2024 3:22 AM MANAGER SEMICONDUCTOR Rikki Pearson MD LAB_[address] * CT Angio Neck W IV Cont (06/26/2024 2:07 AM MANAGER SEMICONDUCTOR) Anatomical Region Laterality Modality Neck, Head, Vascular Computed To mography 06/26/2024 2:07 AM MANAGER SEMICONDUCTOR Narrative 06/26/2024 2:11 AM MANAGER SEMICONDUCTOR EXAM: CT ANGIO NECK W IV CONT LOCATION: [facility] DATE: 06/26/2024 INDICATION: Strangled, hoarse voice COMPARISON: [...] CT ANGIO NECK W IV CONT LOCATION: [facility] DATE: 06/26/2024 INDICATION: Strangled, hoarse voice [...] ED point of care (06/26/2024 12:54 AM MANAGER SEMICONDUCTOR) Urine Test - POC Negative Negative POCT Control Line Present, Clear Background - Internal control Yes POCT Cartridge Lot # [id number] POCT Urine 06/26/2024 12:5 4 AM MANAGER SEMICONDUCTOR Rikki Pearson MD ET POINT OF CARE TEST ENTER/EDIT ORDERABLES POCT * HIV 1/2 Ag/Ab 4th Generation (06/26/2024 12:49 AM MANAGER SEMICONDUCTOR) Pathologist [facility] HIV 1/2 Antigen/Antib radha (4th generation) Negative (Non Reactive) Negative (Non Reactive) 06/26/2024 1:44 AM MANAGER SEMICONDUCTOR [facility] Comment:HIV-1 p24 Antigen an d HIV-1/HIV-2 Antibody not detected Blood Venipuncture / Unknown 06/26/2024 12:49 AM MANAGER SEMICONDUCTOR 06/26/2024 12:55 AM MANAGER SEMICONDUCTOR Rikki Pearson MD LAB_1 Performing Organization Address [facility]/ZIP Co de Phone Number [address] * TSH with reflex to fT4 (not for treatment monitoring) (06/25/2024 8:21 PM MANAGER SEMICONDUCTOR) [facility] TSH, Reflex 1.58 0.30 - 4.50 uIU/mL 06/26/2024 1:34 AM [facility] Blood Venipuncture / Unknown 06/25/2024 8:21 PM MANAGER SEMICONDUCTOR 06/25/2024 8:28 PM MANAGER SEMICONDUCTOR Rikki Pearson MD LAB_1 Performing Organization Address [facility]/ZIP Co de Phone Number [address] * (ABNORMAL) Troponin I (06/25/2024 8:21 PM MANAGER SEMICONDUCTOR) [facility] Troponin I 0.46(H) 0.00 - 0.03 ng/mL 06/25/2024 9:03 PM MANAGER SEMICONDUCTOR [facility] Blood Venipuncture / Unknown 06/25/2024 8:21 PM MANAGER SEMICONDUCTOR 06/25/2024 8:28 PM MANAGER SEMICONDUCTOR Aminta Hernandez MD LAB_1 Performing Organization Address City/State/[facility] Co de Phone Number [address] [address], [facility] * CT Angio Chest W IV Cont PE Study (06/25/2024 8:01 PM MANAGER SEMICONDUCTOR) Anatomical Region Laterality Modality Chest, Lung, Vascular Computed T omography 06/25/2024 8:01 PM MANAGER SEMICONDUCTOR Narrative 06/25/2024 8:15 PM MANAGER SEMICONDUCTOR EXAM: CT ANGIO CHEST W IV CONT PE STUDY LOCATION: [facility] DATE: 06/25/2024 INDICATION: Chest pain, elevated d [...] Finding was identified on 06/25/2024 8:04 [address]NA[address] SEMICONDUCTOR. Dr. Hernandez was contacted by me on 06/25/2024 8:15 PM MANAGER SEMICONDUCTOR and verbalized understanding of the critical result. Procedure Note Stone Sorenson MD - 06/25/2024 EXAM: CT ANGIO CHEST W IV CONT PE STUDY LOCATION: [facility] DATE: 06/25/2024 INDICATION: Chest pain, elevated [...] Finding was identified on 06/25/2024 8:04 [address] SEM[address]ONDUCTOR. Dr. Hernandez was contacted by me on 06/25/2024 8:15 PM MANAGER SEMICONDUCTOR and verbalizedunderstanding of the critical result. Aminta Hernandez MD RAD CT * POC US Expanded IVC (06/25/2024 6:20 PM MANAGER SEMICONDUCTOR) Anatomical Region Laterality Modality Other Narrative 06/25/2024 7:31 PM MANAGER SEMICONDUCTOR Silver Hernandez MD 06/25/2024 7:31 PM [facility] Point of Care Ultrasound Interpretation POC US Expanded IVC Date/Time: 06/25/2024 7:31 PM Performed by: Silver Hernandez MD Authorized by: Aminta Hernandez MD Point of Care Ultrasound: Expanded IVC Indication: Abnormal EKG Window: Limited based on patient factors (inability to position appropriately, body habitus) Findings/ Impression (Within the context of limited [id number] ultrasound): Good Global Function and No Pericardial Effusion Aminta Hernandez MD RAD POC US * ECG 12-Lead STAT (06/25/2024 6:11 PM MANAGER SEMICONDUCTOR) Ventricular Rate 92 BPM MUSE GHP Atrial Rate 92 BPM MUSE GHP P-R Interval 138 ms MUSE GHP QRS Duration 80 ms MUSE GHP QT 390 ms MUSE GHP QTC 482 ms MUSE GHP P [place] 67 degrees MUSE GHP R [place] 137 degrees MUSE GHP T [place] -89 degrees MUSE GHP 06/25/2024 6:11 PM MANAGER SEMICONDUCTOR Narrative MUSE GHP - 06/26/2024 9:07 AM MANAGER SEMICONDUCTOR Sinus rhythm Biatrial enlargement Right axis deviation Pulmonary disease pattern Marked T wave abnormality, consider anterolateral ischemia Prolonged QT Abnormal ECG When compared with ECG of 25-JUN-2024 17:01, Questionable change in QRS axis Confirmed by Marta Llanos ([id number]) on 06/26/2024 9:07:29 AM Procedure Note Marta Llanos MD - 06/26/2024 Sinus rhythm Biatrial enlargement Right axis deviation Pulmonary disease pattern Marked T wave abnormality, consider anterolateral ischemia Prolonged QT Abnormal ECG When compared with ECG of 25-JUN-2024 17:01, Questionable change in QRS axis Confirmed by Marta Llanos ([id number]) on 06/26/2024 9:07:29 AM Aminta Hernandez MD EKG [facility] [address] [place] [address] * (ABNORMAL) Blood Gas, Venous Plus Chemistries POCT (06/25/2024 5:39 PM MANAGER SEMICONDUCTOR) PH, Venous 7.44(H) 7.31 - 7.41 06/25/2024 5:42 PM [facility] PCO2, Venous 41 40 - 52 mmHg 06/25/2024 5:42 PM [facility] PO2, Venous 22(L) 30 - 50 mmHg 06/25/2024 5:42 PM [facility] HCO3, Calculated 27.9 23.0 - 30.0 mmol/L 06/25/2024 5:42 PM [facility] Base Excess, Calculated 4.0(H) -2.0 - 2.0 mmol/L 06/25/2024 5:42 PM [facility] O2 Saturation Calc, Venous 40.0(L) 60.0 - 80.0 % 06/25/2024 5:42 PM [facility] Sodium, WB 138 136 - 145 mmol/L 06/25/2024 5:42 PM [facility] Potassium, Whole Blood 3.7 3.5 - 5.1 mmol/L 06/25/2024 5:42 PM [facility] Calcium Ionized Whole Blood 1.12(L) 1.18 - 1.32 mmol/L 06/25/2024 5:42 PM [facility] Glucose, Whole Blood 106 70 - 180 mg/dL 06/25/2024 5:42 PM [facility] HCT, ISTAT 46.0(H) 34.9 - 44.5 % 06/25/2024 5:42 PM [facility] Hgb, Calculated 15.6 12.0 - 18.0 g/dL 06/25/2024 5:42 PM [facility] Performing Location [facility] ED B 06/25/2024 5:42 PM [facility] Blood 06/25/2024 5:39 PM MANAGER SEMICONDUCTOR 06/25/2024 5:42 PM [facility] Narrative [facility] - 06/25/2024 5:42 PM MANAGER SEMICONDUCTOR The reference range for Ionized Calcium is based on a pH of 7.4.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 the 06/25/24 encounter (Hospital Encounter). Thank you. This list represents the best possible medication history available at the time of note completion and should be used as a guide in reconciling home medications for hospital use. ? GER SEMICONDUCTOR * Plan of Care - Betty Cooper RN - 06/26/2024 2:57 AM CST [facility] Plan of Care Note Assessment: Continue POC Objective: AxO x 4. PERRL. RASS 0. Denies pain. CIWA scored, pheno given x1. Tele NSR 80's. SBP 100's. LS clear. RA. SBA. Able to make needs known. Call light within reach. GER SEMICONDUCTOR * Triage Assessment Note - Ryann Vogel RN - 06/25/2024 4:36 PM CST Pt in w/ [facility] from [facility]. Pt w/ near syncopal event. Pt states did not fully pass out. Staff stay pt slumped over but no injury. Pt at recovery for etoh. Last drink at midnight. Ptreceived hydroxyzine, valium, and gabapentin at approx noon today. Pt very tremulous upon arrival. BS 140 GER SEMICONDUCTOR documented in this encounter Administered Medications Inactive Administered Medications - up to 3 most recent administrations Medication Order MAR Action Action Date Dose Rate Site acetaminophen (TYLENOL) tablet 500 mg 500 mg, Oral, Q4H PRN, Pain/Fever, Starting on Wed06/28/24 at 1159, Until Wed06/28/24 at 1632 apixaban (ELIQUIS) tablet 10 mg 10 mg, Oral, BID, First dose on Wed06/27/24 at 2000, Last dose on Wed07/04/24 at 0800, For 14 doses, HIGH ALERT medication, Indications: Venous Thromboembolism Given 06/28/2024 9:00 AM MANAGER SEMICONDUCTOR 10 mg Given 06/27/2024 8:27 PM MANAGER SEMICONDUCTOR 10 mg apixaban (ELIQUIS) tablet 5 mg 5 mg, Oral, BID, First dose on Wed07/04/24 at 1999, Until Discontinued, HIGH ALERT medication, Indications: Venous Thromboembolism aspirin chewable tablet 324 mg 324 mg, Oral, ONCE, On Wed06/25/24 at 1845, For 1 dose Given 06/25/2024 6:40 PM MANAGER SEMICONDUCTOR 324 mg aspirin chewable tablet 81 mg 81 mg, Oral, ASPIRIN - DAILY, First dose on Wed06/26/24 at 2000, Until Discontinued Given 06/27/2024 8:27 PM MANAGER SEMICONDUCTOR 81 m g Given 06/26/2024 7:19 PM MANAGER SEMICONDUCTOR 81 mg buprenorphine (BELBUCA) buccal film 150 mcg 150 mcg, Buccal, ONCE, On Wed06/27/24 at 1445, For 1 dose, Do not chew, swallow, cut, or tear the film. Avoid applying film to areas of the mouth with any open sores or lesions. Prior to placing the film, moisten inside of cheek with tongue or water. Apply film with a dry finger immediately after removing it from the packaging. Place the yellow side of film against the inside of the moistened cheek; press and hold the film in place for 5 seconds. Keep the film in place until it completely dissolves (usually within 30 minutes). Do not eat or drink until the film is completely dissolved. Once film is completely dissolved, swish a sip of water around teeth and gums and swallow to avoid damage to these areas; wait at least 1 hour after administration to brush teeth. Given 06/27/2024 5:09 PM MANAGER SEMICONDUCTOR 150 mcg buprenorphine (BELBUCA) buccal film 150 mcg 150 mcg, Buccal, DAILY PRN, Other, withdrawal, pain, Starting on Wed06/27/24 at 1429, Until Wed06/28/24 at 1632, Do not chew, swallow, cut, or tear the film. Avoid applying film to areas of the mouth with any open sores or lesions. Prior to placing the film, moisten inside of cheek with tongue or water. Apply film with a dry finger immediately after removing it from the packaging. Place the yellow side of film against the inside of the moistened cheek; press and hold the film in place for 5 seconds. Keep the film in place until it completely dissolves (usually within 30 minutes). Do not eat or drink until the film is completely dissolved. Once film is completely dissolved, swish a sip of water around teeth and gums and swallow to avoid damage to these areas; wait at least 1 hour after administration to brush teeth. Given 06/28/2024 10:36 AM MANAGER SEMICONDUCTOR 150 mcg calcium carbonate (TUMS) chewable tablet 1,000 mg 1,000 mg, Oral, Q4H PRN, Heartburn, Upset Stomach, Starting on Wed06/26/24 at 0059, Until Wed06/28/24 at 1632, For indigestion/upset stomach Given 06/26/2024 10:16 PM MANAGER SEMICONDUCTOR 1,000 mg calcium gluconate 2 g in sodium chloride 0.9% 100 mL premix 2 g, Intravenous, Administer over 30 Minutes, ONCE, On Wed06/25/24 at 1830, For 1 dose Started 06/25/2024 6:44 PM MANAGER SEMICONDUCTOR 2 g cefTRIAXone (ROCEPHIN) 500 mg in lidocaine PF (XYLOCAINE) 1 % 350 mg/ml IM injection 500 mg, Intramuscular, ONCE, On Wed06/26/24 at 0115, For 1 dose, Volume of lidocaine listed in Components is the volume to inject - NOT the amount of lidocaine to use to dilute vial. Ceftriaxone (ROCEPHIN) dilution instructions to make a 350 mg/mL concentration Dilute 500 mg vial with 1.0 mL lidocaine 1% solution Dilute 1 gram vial with 2.1 mL lidocaine 1% solution Dilute 2 gram vial with 4.2 mL lidocaine 1% solution Given 06/26/2024 1:24 AM MANAGER SEMICONDUCTOR 500 mg Right Hip doxycycline monohydrate (MONODOX) capsule 100 mg 100 mg, Oral, Q12H 1000 2200, First dose on Wed06/26/24 at 0000, Take with at least 6 oz water and remain upright x 1 hr., Indications: STD Given 06/28/2024 9:07 AM MANAGER SEMICONDUCTOR 100 mg Given 06/27/2024 9:54 PM MANAGER SEMICONDUCTOR 100 mg Given 06/27/2024 12:19 PM MANAGER SEMICONDUCTOR 100 mg fentaNYL (SUBLIMAZE) injection 25-50 mcg 25-50 mcg, Intravenous, PRN WITH PROCEDURES, Sedation, Starting on Wed06/27/24 at 0824, Until Wed06/27/24 at 1444, For 18 hours, To be administered in procedural area as directed by practitioner., Intra-op Given 06/27/2024 9:37 AM MANAGER SEMICONDUCTOR 50 mcg folic acid tablet 1 mg 1 mg, Oral, ONCE, On Wed06/25/24 at 1745, For 1 dose Given 06/25/2024 6:40 PM MANAGER SEMICONDUCTOR 1 mg folic acid tablet 1 mg 1 mg, Oral, DAILY, First dose on Wed06/26/24 at 0800, Last dose on Wed06/28/24 at 0800, For 3 days, If patient is unable to take oral medications, please use Daily PRN thiamine/folate IV piggyback order (request dose from pharmacy). Given 06/28/2024 9:00 AM MANAGER SEMICONDUCTOR 1 mg Given 06/27/2024 12:19 PM MANAGER SEMICONDUCTOR 1 mg Given 06/26/2024 8:12 AM MANAGER SEMICONDUCTOR 1 mg heparin 1000 UNIT/ML injection 1,000-10,000 Units 1,000-10,000 Units, Intravenous, PRN WITH PROCEDURES, Other, with procedure, Starting on Wed06/27/24 at 0824, Until Wed06/28/24 at 0223, For 18 hours, Pre-Procedure Given 06/27/2024 9:55 AM MANAGER SEMICONDUCTOR 3,000 Units heparin 1000 UNIT/ML injection 1,600 Units 1,600 Units, Intravenous, PRN PER PARAMETERS, Other, For Anti-Xa (Heparin level) 0.18-0.29, Starting on Wed06/26/24 at 0000, Until Wed06/27/24 at 1006, PRN BOLUS DOSE ORDER Weight 51-57Kg. Lab recheck: Anti-Xa (select: Unfractionated Heparin (e.g. heparin infusion)) should be ordered 6 hours after initiation and every rate change, follow Anti-Xa (Heparin) Lab Protocol order for further rechecks., Indications: Acute Coronary Syndrome Given 06/27/2024 2:44 AM MANAGER SEMICONDUCTOR 1,600 U nits Given 06/26/2024 11:14 AM MANAGER SEMICONDUCTOR 1,600 Units heparin 1000 UNIT/ML injection 3,200 Units 3,200 Units, Intravenous, ONCE, On Wed06/25/24 at 2030, For 1 dose, INITIAL LOADING DOSE ORDER Weight 51-57 kg. Initial loading dose 3200 units x 1. Start infusion after loading dose given. Lab recheck: Anti-Xa (select: Unfractionated Heparin (e.g. heparin infusion)) should be ordered 6 hours after initiation and every rate change, follow Anti-Xa (Heparin) Lab Protocol order for further rechecks., Indications: Acute Coronary Syndrome Given 06/25/2024 8:16 PM MANAGER SEMICONDUCTOR 3,200 U nits heparin 1000 UNIT/ML injection 3,200 Units 3,200 Units, Intravenous, PRN PER PARAMETERS, Other, For Anti-Xa (Heparin level) 0.17 or less, Starting on 06/26/24 at 0000, Until Wed06/27/24 at 1006, PRN BOLUS DOSE ORDER Weight 51-57Kg. For Anti-Xa (Heparin level) 0.17 or less: Give 3200 units IV X1 bolus dose (see infusion order for rate change instructions) Lab recheck: Anti-Xa (select: Unfractionated Heparin (e.g. heparin infusion)) should be ordered 6 hours after initiation and every rate change, follow Anti-Xa (Heparin) Lab Protocol order for further rechecks., Indications: Acute Coronary Syndrome Given 06/26/2024 8:06 PM MANAGER SEMICONDUCTOR 3,200 Units Given 06/26/2024 4:06 AM MANAGER SEMICONDUCTOR 3,200 Units heparin 25,000 Units in 0.45% sodium chloride 250 mL (100 Units/mL) infusion 0-3,500 Units/hr (0-35 mL/hr), Intravenous, TITRATE, Starting on 06/25/24 at 2030, Until Wed06/27/24 at 1006, Weight 51-57Kg. Initial rate 650 Units/hr. Start infusion after initial loading dose if initial loading dose is ordered. Adjust infusion rate based on subsequent Anti-Xa (Heparin level) levels. Target Anti-Xa 0.3-0.7 Units/mL Anti-Xa (Heparin level) 0.17 or less: Give 3200 Unit bolus and increase infusion rate +200 units/hr Anti-Xa (Heparin level) 0.18-0.29: Give 1600 Unit bolus and increase infusion rate +100 units/hr Anti-Xa (Heparin level) 0.3-0.7: NO CHANGE Anti-Xa (Heparin level) 0.71-1.01: Reduce rate by -100 units/hr Anti-Xa (Heparin level) 1.02 or greater: HOLD infusion 60 minutes and reduce rate by -150 units/hr when resuming infusion. For Unexpected Anti-Xa results - see Nursing Communication Lab recheck: Anti-Xa (select: Unfractionated Heparin (e.g. heparin infusion)) should be ordered 6 hours after initiation and every rate change, follow Anti-Xa (Heparin) Lab Protocol order for further rechecks. HIGH ALERT medication, Indications: Acute Coronary Syndrome Rate/Dose Verify 06/27/2024 9:00 AM MANAGER SEMICONDUCTOR 1,250 Units/hr 12.5 mL/hr Rate/Dose Change 06/27/2024 2:46 AM MANAGER SEMICONDUCTOR 1,250 Units/hr 12. 5 mL/hr Subsequent Bag 06/27/2024 2:34 AM MANAGER SEMICONDUCTOR 1,150 Units/hr 11.5 mL/hr heparin 25,000 Units in 0.45% sodium chloride 250 mL (100 Units/mL) infusion 0-3,500 Units/hr (0-35 mL/hr), Intravenous, TITRATE, Starting on Wed06/27/24 at 1130, Until Wed06/27/24 at 2000, For 9 hours, Stop when administering apixiban Weight 51-60 kg. Initial rate 1250 Units/hr. Start infusion after initial loading dose if initial loading dose is ordered. Adjust infusion rate based on subsequent Anti-Xa (Heparin level) levels. Target Anti-Xa 0.3-0.7 Units/ml. Anti-Xa (Heparin level) 0.17 or less: Give 4400 Unit bolus and increase infusion rate +250 units/hr Anti-Xa (Heparin level) 0.18-0.29: Give 2200 Unit bolus and increase infusion rate +100 units/hr Anti-Xa (Heparin level) 0.3-0.7: NO CHANGE Anti-Xa (Heparin level) 0.71-1.01: Reduce rate by -100 units/hr Anti-Xa (Heparin level) 1.02 or greater: HOLD infusion 60 minutes and reduce rate by -150 units/hr when resuming infusion. For Unexpected Anti Xa Results - see Nursing Communication Lab recheck: Anti-Xa (select: Unfractionated Heparin (e.g. heparin infusion)) should be ordered 6 hours after initiation. HIGH ALERT medication, Indications: DVT/PE or Cardioembolic indication Started 06/27/2024 4:52 PM MANAGER SEMICONDUCTOR 1,250 Units/hr 12.5 mL/hr hydrOXYzine pamoate (VISTARIL) capsule 25 mg 25 mg, Oral, Q6H PRN, Anxiety, Other, insomnia, Starting on Wed06/26/24 at 1538, Until Wed06/28/24 at 1632 Given 06/28/2024 9:07 AM MANAGER SEMICONDUCTOR 25 mg Given 06/27/2024 8:27 PM MANAGER SEMICONDUCTOR 25 mg Given 06/27/2024 1:48 PM MANAGER SEMICONDUCTOR 25 mg levonorgestrel (PLAN B ONE-STEP) tablet 1.5 mg 1.5 mg, Oral, ONCE, On Wed06/26/24 at 0000, For 1 dose, This medication is a Category X medication. Therefore, it should not be given to patients. The patient's status must be verified before administering this medication. HAZARDOUS DRUG Preparation: Single glove Administration: If no touch, no PPE; if handling, single glove, Indications: Postcoital Contraception Given 06/26/2024 12:53 AM MANAGER SEMICONDUCTOR 1.5 mg loperamide (IMODIUM) capsule 2 mg 2 mg, Oral, Q3H PRN, Diarrhea, Starting on Wed06/26/24 at 2022, Until Wed06/28/24 at 1632, Adult patient maximum daily dose: 16mg/day Given 06/28/2024 9:07 AM MANAGER SEMICONDUCTOR 2 mg Given 06/27/2024 9:54 PM MANAGER SEMICONDUCTOR 2 mg Given 06/27/2024 3:09 AM MANAGER SEMICONDUCTOR 2 mg magnesium sulfate 2 g in water 50 mL premade IVPB 2 g, Intravenous, Administer over 120 Minutes, ONCE, On Wed06/26/24 at 0845, For 1 dose, Magnesium Replacement Protocol: *Give 2g total. *Recheck lab 6 hours after replacement complete and next AM. IF 6 hour recheck draw would be between [id number], use current day AM lab draw. If draw time will be after current day AM labs, place recheck lab orders as directed. Started 06/26/2024 8:37 AM MANAGER SEMICONDUCTOR 2 g melatonin tablet 6 mg 6 mg, Oral, HS PRN, Sedation, Starting on Wed06/26/24 at 0059, Until Wed06/27/24 at 1147 Given 06/27/2024 2:37 AM MANAGER SEMICONDUCTOR 6 mg melatonin tablet 6 mg 6 mg, Oral, HS, First dose (after last modification) on Wed06/27/24 at 2000, Until Discontinued Given 06/27/2024 8:27 PM MANAGER SEMICONDUCTOR 6 mg metoprolol succinate (TOPROL XL) extended release tablet 12.5 mg 12.5 mg, Oral, DAILY, First dose on Wed06/26/24 at 0800, Until Discontinued, HOLD for SBP < 90 Tablet may be split in half, but not crushed. Given 06/26/2024 8:12 AM MANAGER SEMICONDUCTOR 12.5 mg midazolam (VERSED) injection 0.5-1 mg 0.5-1 mg, Intravenous, PRN WITH PROCEDURES, Sedation, Anxiety, Starting on Wed06/27/24 at 0824, Until Wed06/28/24 at 0223, For 18 hours, To be administered in procedural area as directed by practitioner., Intra-op Given 06/27/2024 9:38 AM MANAGER SEMICONDUCTOR 1 mg mirtazapine (REMERON) tablet 7.5 mg 7.5 mg, Oral, HS, First dose (after last modification) on Wed06/27/24 at 2000, Until Discontinued Given 06/27/2024 8:27 PM MANAGER SEMICONDUCTOR 7.5 mg naloxone (NARCAN) injection 0.2 mg 0.2 mg, Intravenous, Q2MIN PRN, RR <, 6 breaths per minute, Starting on Wed06/27/24 at 1043, Until Wed06/28/24 at 1632, Repeat x 1 after 2 minutes if needed for RR < 6 breaths per minute. Notify practitioner if naloxone used. ondansetron (ZOFRAN) injection 4 mg 4 mg, Intravenous, Q6H PRN, Nausea, Vomiting, Starting on Wed06/26/24 at 1149, Until Wed06/28/24 at 1632, Give 1st line medications, then 2nd line, then 3rd line. Progress to next line if medication is ineffective after 15 minutes, or has been previously ineffective, or if a medication for a line is not ordered. May use medication from any line if patient preference indicates. If 3rd line agent is ineffective, call Practitioner. If unable to give IV medications contact Practitioner. Aromatherapy may be used at any time as adjunct therapy. 1st Line - ondansetron (give ondansetron ODT (oral) if able to take oral, otherwise give IV) 2nd Line -prochlorperazine 3rd Line - metoclopramide ondansetron (ZOFRAN-ODT) disintegrating tablet 4 mg 4 mg, Oral, Q6H PRN, Nausea, Vomiting, Starting on Wed06/26/24 at 1149, Until Wed06/28/24 at 1632, Give 1st line medications, then 2nd line, then 3rd line. Progress to next line if medication is ineffective after 15 minutes, or has been previously ineffective, or if a medication for a line is not ordered. May use medication from any line if patient preference indicates. If 3rd line agent is ineffective, call Practitioner. If unable to give IV medications contact Practitioner. Aromatherapy may be used at any time as adjunct therapy. 1st Line - ondansetron (give ondansetron ODT (oral) if able to take oral, otherwise give IV) 2nd Line -prochlorperazine 3rd Line - metoclopramide Given 06/28/2024 9:07 AM [facility] 4 mg Given 06/26/2024 10:16 PM [facility]NAGER [facility] 4 mg PHENobarbital 650 mg in sodium chloride 0.9 % 100 mL IVPB 650 mg, Intravenous, Administer over 30 Minutes, ONCE, On Wed06/25/24 at 1815, For 1 dose Started 06/25/2024 6:21 PM [facility] 650 mg PHENobarbital injection 130 mg 130 mg, Intravenous, Q1H PRN, Withdrawal, Starting on Wed06/25/24 at 1754, Until Wed06/26/24 at 0107, For 5 doses, Use Oral PHENobarbital preferably, but if unable to swallow or extremely agitated then use IV. Start 1 hour after initiation of loading dose infusion. Give if single response of CIWA-Ar 16 or greater OR if patient is experiencing 2 or more of the following: -SBP greater than 160 mmHg -DBP greater than 100 mmHg -Diaphoresis (CIWA-Ar beads of sweat =4 or greater) -Tremors (CIWA-Ar scale moderate = 4 or greater) -Hallucinations (CIWA-Ar auditory moderate = 3 or greater, visual moderate = 3 or greater) -Significant agitation (RASS +2 or greater), (CIWA-Ar moderate fidgety and restless= 4 or greater) If patient requiring 3 PRN doses in 6-hour period, contact Practitioner to discuss transfer to ICU/Critical Care Team. Given 06/25/2024 8:42 PM [facility] 130 mg PHENobarbital injection 65 mg 65 mg, Intravenous, Q2H PRN, Withdrawal, Starting on Wed06/26/24 at 0059, Until Wed06/28/24 at 1632, Start 1 hour after initiation of loading dose infusion. Give if single response of CIWA-Ar 16 or greater; OR if patient is experiencing 2 or more of the following: -SBP greater than 160 mmHg -DBP greater than 100 mmHg -Diaphoresis (CIWA-Ar beads of sweat =4 or greater) -Tremors (CIWA-Ar scale moderate = 4 or greater) -Hallucinations (CIWA-Ar auditory moderate = 3 or greater, visual moderate = 3 or greater) -Significant agitation (RASS +2 or greater), (CIWA-Ar moderate fidgety and restless= 4 or greater). If phenobarbital given, reassess CIWA-AR, RASS and vitals at 30 minutes and 2 hours. --If symptoms remain the same or worse at 30 minutes use other prn medications if available (and follow reassessment instructions) or call practitioner for additional interventions (may include 1X dose of phenobarbital). --At 2 hours continue with PRN phenobarbital dosing. If 3 doses of phenobarbital given in 6 hours and symptoms minimally improved or worse contact practitioner to consider transfer to ICU Given 06/27/2024 10:03 PM [facility] 65 mg Given 06/27/2024 4:44 PM [facility] [employer] 65 mg Given 06/26/2024 7:30 PM [facility] [employer] 65 mg PHENobarbital tablet 30 mg 30 mg, Oral, TID, First dose on Wed06/26/24 at 1345, Last dose on Wed06/26/24 at 2000, For 2 doses Given 06/26/2024 7:18 PM [facility] 30 mg Given 06/26/2024 1:58 PM [facility] [employer] 30 mg potassium bicarbonate-citric acid (EFFER-K) effervescent tablet 40 mEq 40 mEq, Oral, ONCE, On Wed06/26/24 at 0745, For 1 dose, Potassium Replacement Protocol: *Give 40 mEq total *Recheck lab 4 hours after oral/enteral replacement complete and next AM. If lab draw would be between 1357-0777, use AM lab draw (if existing BMP, additional order not needed) *If draw time will be after AM labs, recheck after replacement as directed. Dissolve tablets completely in 3 to 4 ounces of cold/ice water or juice. May further dilute if GI adverse effects occur. May take 3-4 minutes to completely dissolve., Indications: Potassium Replacement Protocol: CrCl 40mL/min or greater and Potassium level 3.3 - 3.4 mmol/L Given 06/26/2024 8:19 AM [facility] 40 mEq potassium bicarbonate-citric acid (EFFER-K) effervescent tablet 40 mEq 40 mEq, Oral, ONCE, On Wed06/26/24 at 1330, For 1 dose, Potassium Replacement Protocol: *Give 40 mEq total. *Recheck lab 4 hours after oral/enteral replacement complete and next AM. If lab draw would be between 7422-3423, use AM lab draw (if existing BMP, additional order not needed) *If draw time will be after AM labs, recheck after replacement as directed. Dissolve tablets completely in 3 to 4 ounces of cold/ice water or juice. May further dilute if GI adverse effects occur. May take 3-4 minutes to completely dissolve., Indications: Potassium Replacement Protocol WITH GOAL 4 mmol/L: CrCl 40mL/min or greater and Potassium level 3.5 - 3.9 mmol/L Given 06/26/2024 1:58 PM [facility] [employer] 40 mEq potassium bicarbonate-citric acid (EFFER-K) effervescent tablet 40 mEq 40 mEq, Oral, ONCE, On Wed06/26/24 at 2015, For 1 dose, Potassium Replacement Protocol: *Give 40 mEq total. *Recheck lab 4 hours after oral/enteral replacement complete and next AM. If lab draw would be between [id number], use AM lab draw (if existing BMP, additional order not needed) *If draw time will be after AM labs, recheck after replacement as directed. Dissolve tablets completely in 3 to 4 ounces of cold/ice water or juice. May further dilute if GI adverse effects occur. May take 3-4 minutes to completely dissolve., Indications: Potassium Replacement Protocol WITH GOAL 4 mmol/L: CrCl 40mL/min or greater and Potassium level 3.5 - 3.9 mmol/L Given 06/26/2024 8:06 PM [facility] [employer] 40 mEq sodium chloride 0.9% bolus 1,000 mL 1,000 mL, Intravenous, Administer over 0.5 Hours, ONCE, On Wed06/25/24 at 1730, For 1 dose Started 06/25/2024 5:38 PM [facility] 1,000 mL sodium chloride 0.9% infusion Intravenous, at 125 mL/hr, CONTINUOUS, Starting on Wed06/27/24 at 1530, For 2 hours Started 06/27/2024 5:03 PM [facility] [employer] 12 5 mL/hr thiamine (VITAMIN B-1) tablet 100 mg 100 mg, Oral, ONCE, On Wed06/25/24 at 1745, For 1 dose Given 06/25/2024 6:40 PM [facility] [employer] 100 mg thiamine (VITAMIN B-1) tablet 100 mg 100 mg, Oral, DAILY, First dose on Wed06/26/24 at 0800, Last dose on Wed06/28/24 at 0800, For 3 days, If patient is unable to take oral medications, please use Daily PRN thiamine/folate IV piggyback order (request dose from pharmacy). Given 06/28/2024 9:00 AM [facility] 100 mg Given 06/27/2024 12:19 PM [facility]NAGER [facility] 100 mg Given 06/26/2024 8:12 AM [facility]NAGER [facility] 100 mg documented in this encounter Active and Recently Administered Medications Times are shown in [facility]. Scheduled Medication Order 06/26/2024 06/27/2024 06/28/2024 apixaban (ELIQUIS) tablet 10 mg(Linked Group 1) 10 mg, Oral, BID, First dose on Wed06/27/24 at 2000, Last dose on Wed07/04/24 at 0800, For 14 doses, HIGH ALERT medication, Indications: Venous Thromboembolism 2026 (Given - Provider: Leslie Prasad RN) 0900 (Given - Provider: Rima Maldonado RN) apixaban (ELIQUIS) tablet 5 mg(Linked Group 1) 5 mg, Oral, BID, First dose on Wed07/04/24 at 2000, Until Discontinued, HIGH ALERT medication, Indications: Venous Thromboembolism aspirin chewable tablet 81 mg 81 mg, Oral, ASPIRIN - DAILY, First dose on Wed06/26/24 at 2000, Until Discontinued 191 (Given - Provider: Leslie Prasad RN) 2026 (Given - Provider: Leslie Prasad, JAQUELINE) buprenorphine (BELBUCA) buccal film 150 mcg (COMPLETED) 150 mcg, Buccal, ONCE, On Wed06/27/24 at 1445, For 1 dose, Do not chew, swallow, cut, or tear the film. Avoid applying film to areas of the mouth with any open sores or lesions. Prior to placing the film, moisten inside of cheek with tongue or water. Apply film with a dry finger immediately after removing it from the packaging. Place the yellow side of film against the inside of the moistened cheek; press and hold the film in place for 5 seconds. Keep the film in place until it completely dissolves (usually within 30 minutes). Do not eat or drink until the film is completely dissolved. Once film is completely dissolved, swish a sip of water around teeth and gums and swallow to avoid damage to these areas; wait at least 1 hour after administration to brush teeth. 1709 (Given - Provider: Leslie Prasad RN) cefTRIAXone (ROCEPHIN) 500 mg in lidocaine PF (XYLOCAINE) 1 % 350 mg/ml IM injection (COMPLETED) 500 mg, Intramuscular, ONCE, On Wed06/26/24 at 0115, For 1 dose, Volume of lidocaine listed in Components is the volume to inject - NOT the amount of lidocaine to use to dilute vial. Ceftriaxone (ROCEPHIN) dilution instructions to make a 350 mg/mL concentration Dilute 500 mg vial with 1.0 mL lidocaine 1% solution Dilute 1 gram vial with 2.1 mL lidocaine 1% solution Dilute 2 gram vial with 4.2 mL lidocaine 1% solution 0124 (Given - Provider: Jessica Reid RN) doxycycline monohydrate (MONODOX) capsule 100 mg 100 mg, Oral, Q12H 1000 2200, First dose on Wed06/26/24 at 0000, Take with at least 6 oz water and remain upright x 1 hr., Indications: STD 0053 (Given - Provider: Lotus Singer RN)1052 (Given - Provider: Danis Villanueva RN)2216 (Given - Provider: Leslie Prasad RN) 1219 (Given - Provider: Danis Villanueva RN - Comment: getting angiogram in AM)2154 (Given - Provider: Leslie Prasad RN) 0907 (Given - Provider: Rima Maldonado RN) folic acid tablet 1 mg (COMPLETED)(Linked Group 2) 1 mg, Oral, DAILY, First dose on Wed06/26/24 at 0800, Last dose on Wed06/28/24 at 0800, For 3 days, If patient is unable to take oral medications, please use Daily PRN thiamine/folate IV piggyback order (request dose from pharmacy). 0812 (Given - Provider: Danis Villanueva RN) 1219 (Given - Provider: Danis Villanueva RN - Comment: getting angiogram in AM) 0900 (Given - Provider: Rima Maldonado RN) levonorgestrel (PLAN B ONE-STEP) tablet 1.5 mg (COMPLETED) 1.5 mg, Oral, ONCE, On Wed06/26/24 at 0000, For 1 dose, This medication is a Category X medication. Therefore, it should not be given to patients. The patient's status must be verified before administering this medication. HAZARDOUS DRUG Preparation: Single glove Administration: If no touch, no PPE; if handling, single glove, Indications: Postcoital Contraception 0053 (Given - Provider: Lotus Singer RN) magnesium sulfate 2 g in water 50 mL premade IVPB (COMPLETED) 2 g, Intravenous, Administer over 120 Minutes, ONCE, On Wed06/26/24 at 0845, For 1 dose, Magnesium Replacement Protocol: *Give 2g total. *Recheck lab 6 hours after replacement complete and next AM. IF 6 hour recheck draw would be between 4712-7928, use current day AM lab draw. If draw time will be after current day AM labs, place recheck lab orders as directed. 0837 (Started - Provider: Danis Villanueva RN)1230 (Infused - Provider: Danis Villanueva RN - Comment: delayed d/t needing new PIV.) melatonin tablet 6 mg 6 mg, Oral, HS, First dose (after last modification) on Wed06/27/24 at 1999, Until Discontinued 2026 (Given - Provider: Leslie Prasad, JAQUELINE) metoprolol succinate (TOPROL XL) extended release tablet 12.5 mg (CANCELED) 12.5 mg, Oral, DAILY, First dose on Wed06/26/24 at 0800, Until Discontinued, HOLD for SBP < 90 Tablet may be split in half, but not crushed. 0812 (Given - Provider: Danis Villanueva RN) mirtazapine (REMERON) tablet 7.5 mg 7.5 mg, Oral, HS, First dose (after last modification) on Wed06/27/24 at 1999, Until Discontinued 2026 (Given - Provider: Leslie Prasad RN) PHENobarbital tablet 30 mg (COMPLETED) 30 mg, Oral, TID, First dose on Wed06/26/24 at 1345, Last dose on Wed06/26/24 at 2000, For 2 doses 1358 (Given - Provider: Danis Villanueva RN)1918 (Given - Provider: Leslie Prasad RN) potassium bicarbonate-citric acid (EFFER-K) effervescent tablet 40 mEq (COMPLETED) 40 mEq, Oral, ONCE, On Wed06/26/24 at 0745, For 1 dose, Potassium Replacement Protocol: *Give 40 mEq total *Recheck lab 4 hours after oral/enteral replacement complete and next AM. If lab draw would be between 6701-6340, use AM lab draw (if existing BMP, additional order not needed) *If draw time will be after AM labs, recheck after replacement as directed. Dissolve tablets completely in 3 to 4 ounces of cold/ice water or juice. May further dilute if GI adverse effects occur. May take 3-4 minutes to completely dissolve., Indications: Potassium Replacement Protocol: CrCl 40mL/min or greater and Potassium level 3.3 - 3.4 mmol/L 0819 (Given - Provider: Danis Villanueva RN) potassium bicarbonate-citric acid (EFFER-K) effervescent tablet 40 mEq (COMPLETED) 40 mEq, Oral, ONCE, On Wed06/26/24 at 1330, For 1 dose, Potassium Replacement Protocol: *Give 40 mEq total. *Recheck lab 4 hours after oral/enteral replacement complete and next AM. If lab draw would be between 1574-6636, use AM lab draw (if existing BMP, additional order not needed) *If draw time will be after AM labs, recheck after replacement as directed. Dissolve tablets completely in 3 to 4 ounces of cold/ice water or juice. May further dilute if GI adverse effects occur. May take 3-4 minutes to completely dissolve., Indications: Potassium Replacement Protocol WITH GOAL 4 mmol/L: CrCl 40mL/min or greater and Potassium level 3.5 - 3.9 mmol/L 1358 (Given - Provider: Danis Villanueva RN) potassium bicarbonate-citric acid (EFFER-K) effervescent tablet 40 mEq (COMPLETED) 40 mEq, Oral, ONCE, On Wed06/26/24 at 2015, For 1 dose, Potassium Replacement Protocol: *Give 40 mEq total. *Recheck lab 4 hours after oral/enteral replacement complete and next AM. If lab draw would be between 6077-6672, use AM lab draw (if existing BMP, additional order not needed) *If draw time will be after AM labs, recheck after replacement as directed. Dissolve tablets completely in 3 to 4 ounces of cold/ice water or juice. May further dilute if GI adverse effects occur. May take 3-4 minutes to completely dissolve., Indications: Potassium Replacement Protocol WITH GOAL 4 mmol/L: CrCl 40mL/min or greater and Potassium level 3.5 - 3.9 mmol/L 2005 (Given - Provider: Leslie Prasad, JAQUELINE) thiamine (VITAMIN B-1) tablet 100 mg (COMPLETED)(Linked Group 2) 100 mg, Oral, DAILY, First dose on Wed06/26/24 at 0800, Last dose on Wed06/28/24 at 0800, For 3 days, If patient is unable to take oral medications, please use Daily PRN thiamine/folate IV piggyback order (request dose from pharmacy). 0812 (Given - Provider: Danis Villanueva RN) 1219 (Given - Provider: Danis Villanueva RN - Comment: getting angiogram in AM) 0900 (Given - Provider: Rima Maldonado RN) Continuous Medication Order 06/26/2024 06/27/2024 06/28/2024 heparin 25,000 Units in 0.45% sodium chloride 250 mL (100 Units/mL) infusion (CANCELED) 0-3,500 Units/hr (0-35 mL/hr), Intravenous, TITRATE, Starting on Wed06/25/24 at 2030, Until Wed06/27/24 at 1006, Weight 51-57Kg. Initial rate 650 Units/hr. Start infusion after initial loading dose if initial loading dose is ordered. Adjust infusion rate based on subsequent Anti-Xa (Heparin level) levels. Target Anti-Xa 0.3-0.7 Units/mL Anti-Xa (Heparin level) 0.17 or less: Give 3200 Unit bolus and increase infusion rate +200 units/hr Anti-Xa (Heparin level) 0.18-0.29: Give 1600 Unit bolus and increase infusion rate +100 units/hr Anti-Xa (Heparin level) 0.3-0.7: NO CHANGE Anti-Xa (Heparin level) 0.71-1.01: Reduce rate by -100 units/hr Anti-Xa (Heparin level) 1.02 or greater: HOLD infusion 60 minutes and reduce rate by -150 units/hr when resuming infusion. For Unexpected Anti-Xa results - see Nursing Communication Lab recheck: Anti-Xa (select: Unfractionated Heparin (e.g. heparin infusion)) should be ordered 6 hours after initiation and every rate change, follow Anti-Xa (Heparin) Lab Protocol order for further rechecks. HIGH ALERT medication, Indications: Acute Coronary Syndrome 0225 (Rate/Dose Verify - Provider: Betty Cooper RN - Comment: verified w/ Carlos Alberto PARSONS)0410 (Rate/Dose Change - Provider: Betty Cooper RN - Comment: GP RN)1115 (Rate/Dose Change - Provider: Danis Villanueva RN - Comment: Dual verified with JAQUELINE POWER)1741 (Rate/Dose Verify - Provider: Leslie Prasad RN)2008 (Started - Provider: Leslie Prasad RN) 0234 (Subsequent Bag - Provider: Tracey Pal RN)0246 (Rate/Dose Change - Provider: Tracey Pal RN)0900 (Rate/Dose Verify - Provider: Danis Villanueva RN)0923 (Stopped - Provider: Danis Villanueva RN - Comment: Pt going down to angiogram, per angiogram - disconnect heparin now before procedure.) heparin 25,000 Units in 0.45% sodium chloride 250 mL (100 Units/mL) infusion () 0-3,500 Units/hr (0-35 mL/hr), Intravenous, TITRATE, Starting on Wed06/27/24 at 1130, Until Wed06/27/24 at 2000, For 9 hours, Stop when administering apixiban Weight 51-60 kg. Initial rate 1250 Units/hr. Start infusion after initial loading dose if initial loading dose is ordered. Adjust infusion rate based on subsequent Anti-Xa (Heparin level) levels. Target Anti-Xa 0.3-0.7 Units/ml. Anti-Xa (Heparin level) 0.17 or less: Give 4400 Unit bolus and increase infusion rate +250 units/hr Anti-Xa (Heparin level) 0.18-0.29: Give 2200 Unit bolus and increase infusion rate +100 units/hr Anti-Xa (Heparin level) 0.3-0.7: NO CHANGE Anti-Xa (Heparin level) 0.71-1.01: Reduce rate by -100 units/hr Anti-Xa (Heparin level) 1.02 or greater: HOLD infusion 60 minutes and reduce rate by -150 units/hr when resuming infusion. For Unexpected Anti Xa Results - see Nursing Communication Lab recheck: Anti-Xa (select: Unfractionated Heparin (e.g. heparin infusion)) should be ordered 6 hours after initiation. HIGH ALERT medication, Indications: DVT/PE or Cardioembolic indication 1651 (Started - Provider: Leslie Prasad RN - Comment: Due time adjusted 2 hours after TR band off. Restarted at previous rate per standing order.)2024 (Stopped - Provider: Leslie Prasad RN) sodium chloride 0.9% infusion () Intravenous, at 125 mL/hr, CONTINUOUS, Starting on Wed06/27/24 at 1530, For 2 hours 170 (Started - Provider: Leslie Prasad, JAQUELINE)2025 (Stopped - Provider: Leslie Prasad, JAQUELINE) PRN Medication Order 06/26/2024 06/27/2024 06/28/2024 acetaminophen (TYLENOL) tablet 500 mg 500 mg, Oral, Q4H PRN, Pain/Fever, Starting on Wed06/28/24 at 1159, Until Wed06/28/24 at 1632 benzocaine-menthol (Chloraseptic) lozenge 1 Lozenge 1 Lozenge, Oral, Q2H PRN, Throat Pain, Cough, Starting on Wed06/26/24 at 0059, Until Wed06/28/24 at 1632 buprenorphine (BELBUCA) buccal film 150 mcg 150 mcg, Buccal, DAILY PRN, Other, withdrawal, pain, Starting on Wed06/27/24 at 1429, Until Wed06/28/24 at 1632, Do not chew, swallow, cut, or tear the film. Avoid applying film to areas of the mouth with any open sores or lesions. Prior to placing the film, moisten inside of cheek with tongue or water. Apply film with a dry finger immediately after removing it from the packaging. Place the yellow side of film against the inside of the moistened cheek; press and hold the film in place for 5 seconds. Keep the film in place until it completely dissolves (usually within 30 minutes). Do not eat or drink until the film is completely dissolved. Once film is completely dissolved, swish a sip of water around teeth and gums and swallow to avoid damage to these areas; wait at least 1 hour after administration to brush teeth. 1036 (Given - Provider: Rima Maldonado RN) calcium carbonate (TUMS) chewable tablet 1,000 mg 1,000 mg, Oral, Q4H PRN, Heartburn, Upset Stomach, Starting on Wed06/26/24 at 0059, Until Wed06/28/24 at 1632, For indigestion/upset stomach 2216 (Given - Provider: Leslie Prasad RN) carboxymethylcellulose PF (REFRESHPLUS) 0.5 % eye drops 1 Drop 1 Drop, Both Eyes, Q1H PRN, Dry Eyes, Itchy Eyes, Starting on Wed06/26/24 at 0059, Until Wed06/28/24 at 1632 cloNIDine (CATAPRES) tablet 0.1 mg 0.1 mg, Oral, Q4H PRN, Other, Give for SBP greater than 160 and/or DBP greater than 110. DO NOT GIVE if HR less than 70., Starting on Wed06/26/24 at 0059, Until Wed06/28/24 at 1632, Call practitioner for additional orders if elevated SBP or DBP and HR less than 70., Indications: Alcohol withdrawal associated hypertension fentaNYL (SUBLIMAZE) injection 25-50 mcg (CANCELED) 25-50 mcg, Intravenous, PRN WITH PROCEDURES, Sedation, Starting on Wed06/27/24 at 0824, Until Wed06/27/24 at 1444, For 18 hours, To be administered in procedural area as directed by practitioner., Intra-op 0937 (Given - Provider: Leah Lopez RN - Comment: leeanna ambriz MD) folic acid 1 mg, thiamine (VITAMIN B-1) 100 mg in sodium chloride 0.9 % 50 mL IV piggyback at 100 mL/hr, Intravenous, DAILY PRN, Starting on Wed06/26/24 at 0059, Until Wed06/28/24 at 1632, if patient unable to take thiamine and folate PO (request dose from Pharmacy) heparin 1000 UNIT/ML injection 1,000-10,000 Units () 1,000-10,000 Units, Intravenous, PRN WITH PROCEDURES, Other, with procedure, Starting on Wed06/27/24 at 0824, Until Wed06/28/24 at 0223, For 18 hours, Pre-Procedure 0955 (Given - Provider: Leah Lopez RN) heparin 1000 UNIT/ML injection 1,600 Units (CANCELED) 1,600 Units, Intravenous, PRN PER PARAMETERS, Other, For Anti-Xa (Heparin level) 0.18-0.29, Starting on Wed06/26/24 at 0000, Until Wed06/27/24 at 1006, PRN BOLUS DOSE ORDER Weight 51-57Kg. Lab recheck: Anti-Xa (select: Unfractionated Heparin (e.g. heparin infusion)) should be ordered 6 hours after initiation and every rate change, follow Anti-Xa (Heparin) Lab Protocol order for further rechecks., Indications: Acute Coronary Syndrome 1114 (Given - Provider: Danis Villanueva RN - Comment: Dual verified with JAQUELINE POWER) 0244 (Given - Provider: Tracey Pal RN) heparin 1000 UNIT/ML injection 3,200 Units (CANCELED) 3,200 Units, Intravenous, PRN PER PARAMETERS, Other, For Anti-Xa (Heparin level) 0.17 or less, Starting on Wed06/26/24 at 0000, Until Wed06/27/24 at 1006, PRN BOLUS DOSE ORDER Weight 51-57Kg. For Anti-Xa (Heparin level) 0.17 or less: Give 3200 units IV X1 bolus dose (see infusion order for rate change instructions) Lab recheck: Anti-Xa (select: Unfractionated Heparin (e.g. heparin infusion)) should be ordered 6 hours after initiation and every rate change, follow Anti-Xa (Heparin) Lab Protocol order for further rechecks., Indications: Acute Coronary Syndrome 0406 (Given - Provider: Betty Cooper RN - Comment: GP RN)2005 (Given - Provider: Leslie Prasad RN) hydrOXYzine pamoate (VISTARIL) capsule 25 mg 25 mg, Oral, Q6H PRN, Anxiety, Other, insomnia, Starting on Wed06/26/24 at 1538, Until Wed06/28/24 at 1632 1740 (Given - Provider: Leslie Prasad, JAQUELINE) 0000 (Given - Provider: Tracey Pal RN)1348 (Given - Provider: Danis Villanueva RN)2027 (Given - Provider: Leslie Prasad RN) 0907 (Given - Provider: Rima Maldonado RN) lidocaine (UROJET) 2 % gel prefilled syringe Urethral, PRN WITH PROCEDURES, Local Anesthetic, Prior to intermittent straight cath or indwelling urethral catheter placement for pain relief and/or lubrication, Starting on Wed06/26/24 at 0059, Administer 3-5 mL for females and 5-10mL for males as needed for anesthetic effect prior to procedure Strongly recommend utilizing Coud tipped catheter and PRN Urojet for patients with a prostate age 50 and older. loperamide (IMODIUM) capsule 2 mg 2 mg, Oral, Q3H PRN, Diarrhea, Starting on Wed06/26/24 at 2022, Until Wed06/28/24 at 1632, Adult patient maximum daily dose: 16mg/day 0000 (Given - Provider: Tracey Pal RN)0309 (Given - Provider: Tracey Pal RN)2154 (Given - Provider: Leslie Prasad RN) 0907 (Given - Provider: Rima Maldonado RN) melatonin tablet 6 mg (CANCELED) 6 mg, Oral, HS PRN, Sedation, Starting on Wed06/26/24 at 0059, Until Wed06/27/24 at 1147 0237 (Given - Provider: Tracey Pal, JAQUELINE) midazolam (VERSED) injection 0.5-1 mg () 0.5-1 mg, Intravenous, PRN WITH PROCEDURES, Sedation, Anxiety, Starting on Wed06/27/24 at 0824, Until Wed06/28/24 at 0223, For 18 hours, To be administered in procedural area as directed by practitioner., Intra-op 0938 (Given - Provider: Leah Lopez RN - Comment: ok per ) naloxone (NARCAN) injection 0.2 mg 0.2 mg, Intravenous, Q2MIN PRN, RR <, 6 breaths per minute, Starting on Wed06/27/24 at 1043, Until Wed06/28/24 at 1632, Repeat x 1 after 2 minutes if needed for RR < 6 breaths per minute. Notify practitioner if naloxone used. nystatin (MYCOSTATIN) [id number] UNIT/GM topical powder Topical, BID PRN, Other, for rash due to yeast, Starting on Wed06/26/24 at 0059, Apply topically to affected area. Hazardous waste disposal required. ondansetron (ZOFRAN) injection 4 mg 4 mg, Intravenous, Q6H PRN, Nausea, Vomiting, Starting on Wed06/26/24 at 1149, Until Wed06/28/24 at 1632, Give 1st line medications, then 2nd line, then 3rd line. Progress to next line if medication is ineffective after 15 minutes, or has been previously ineffective, or if a medication for a line is not ordered. May use medication from any line if patient preference indicates. If 3rd line agent is ineffective, call Practitioner. If unable to give IV medications contact Practitioner. Aromatherapy may be used at any time as adjunct therapy. 1st Line - ondansetron (give ondansetron ODT (oral) if able to take oral, otherwise give IV) 2nd Line -prochlorperazine 3rd Line - metoclopramide ondansetron (ZOFRAN-ODT) disintegrating tablet 4 mg 4 mg, Oral, Q6H PRN, Nausea, Vomiting, Starting on Wed06/26/24 at 1149, Until Wed06/28/24 at 1632, Give 1st line medications, then 2nd line, then 3rd line. Progress to next line if medication is ineffective after 15 minutes, or has been previously ineffective, or if a medication for a line is not ordered. May use medication from any line if patient preference indicates. If 3rd line agent is ineffective, call Practitioner. If unable to give IV medications contact Practitioner. Aromatherapy may be used at any time as adjunct therapy. 1st Line - ondansetron (give ondansetron ODT (oral) if able to take oral, otherwise give IV) 2nd Line -prochlorperazine 3rd Line - metoclopramide 2216 (Given - Provider: Leslie Prasad, JAQUELINE) 0907 (Given - Provider: Rima Maldonado RN) PHENobarbital injection 65 mg 65 mg, Intravenous, Q2H PRN, Withdrawal, Starting on Wed06/26/24 at 0059, Until Wed06/28/24 at 1632, Start 1 hour after initiation of loading dose infusion. Give if single response of CIWA-Ar 16 or greater; OR if patient is experiencing 2 or more of the following: -SBP greater than 160 mmHg -DBP greater than 100 mmHg -Diaphoresis (CIWA-Ar beads of sweat =4 or greater) -Tremors (CIWA-Ar scale moderate = 4 or greater) -Hallucinations (CIWA-Ar auditory moderate = 3 or greater, visual moderate = 3 or greater) -Significant agitation (RASS +2 or greater), (CIWA-Ar moderate fidgety and restless= 4 or greater). If phenobarbital given, reassess CIWA-AR, RASS and vitals at 30 minutes and 2 hours. --If symptoms remain the same or worse at 30 minutes use other prn medications if available (and follow reassessment instructions) or call practitioner for additional interventions (may include 1X dose of phenobarbital). --At 2 hours continue with PRN phenobarbital dosing. If 3 doses of phenobarbital given in 6 hours and symptoms minimally improved or worse contact practitioner to consider transfer to ICU 0133 (Given - Provider: Jessica Reid RN)0333 (Given - Provider: Betty Cooper RN)0812 (Given - Provider: Danis Villanueva RN)1048 (Given - Provider: Danis Villanueva RN)1653 (Given - Provider: Leslie Prasad, JAQUELINE)1930 (Given - Provider: Leslie Prasad, JAQUELINE) 1644 (Given - Provider: Leslie Prasad RN)2203 (Given - Provider: Leslie Prasad RN) sodium chloride (OCEAN) 0.65 % nasal solution 1 Alpha 1 Alpha, Both Nostrils, Q2H PRN, Dry Nose, Starting on Wed06/26/24 at 0059, Until Wed06/28/24 at 1632 Linked Groups Order Group 1: apixaban (ELIQUIS) tablet 10 mgJump to med 10 mg, Oral, BID, First dose on Wed06/27/24 at 2000, Last dose on Wed07/04/24 at 0800, For 14 doses, HIGH ALERT medication, Indications: Venous Thromboembolism Followed by apixaban (ELIQUIS) tablet 5 mgJump to med 5 mg, Oral, BID, First dose on Wed07/04/24 at 2000, Until Discontinued, HIGH ALERT medication, Indications: Venous Thromboembolism Group 2: thiamine (VITAMIN B-1) tablet 100 mg (COMPLETED)Jump to med 100 mg, Oral, DAILY, First dose on Wed06/26/24 at 0800, Last dose on Wed06/28/24 at 0800, For 3 days, If patient is unable to take oral medications, please use Daily PRN thiamine/folate IV piggyback order (request dose from pharmacy). And folic acid tablet 1 mg (COMPLETED)Jump to med 1 mg, Oral, DAILY, First dose on Wed06/26/24 at 0800, Last dose on Wed06/28/24 at 0800, For 3 days, If patient is unable to take oral medications, please use Daily PRN thiamine/folate IV piggyback order (request dose from pharmacy). documented in this encounter Care Teams Animal Maintenance Supervisor Relationship Specialty Start Date End Date No Primary/Referring, Phy PCP - General 06/28/24 documented as of this encounter
--- OUTSIDE RECORDS SUMMARY | 2024-07-06 08:19 | XMS_ITS | Encounter Summary ---
Author Organization [facility] Address [address] [address] Phone Care Team Providers Care Helper Electrical Name Role Phone Rima Florence DO Primary Care Provider [phone] Encounter Details Date Type Department Care Team (Latest Contact Info) Description 06/16/2024 Travel Social History Tobacco Use Types Packs/Day Years Used Date Smoking Tobacco: Every Day Cigarettes 1 20 Smokeless Tobacco: Never Comments:Pt has been discuss ing quitting smoking with her personal doctor Alcohol Use Standard Drinks/Week Comments Yes 12 (1 standard drink = 0.6 oz pure alcohol) Hx of ETOH abuse, states she is drinking 1 litre of vodka per day 08/15/23 [facility] Custom IPV Answer Date Recorded Do you [...] Time COVID-19 Confirmed 06/03/2024 06/03/2024 9:26 AM [facility] [employer] [facility] documented as of this encounter Care Teams Helper Electrical Relationship Specialty Start Date End Date Rima Florence DO [address] [address] PCP - General Family Medicine 06/16/24 documented as of this encounter
--- OUTSIDE RECORDS SUMMARY | 2024-07-06 08:19 | XMS_ITS | Encounter Summary ---
Author Organization [facility] [address], [place] [address] Care Team Providers Care Candy Separator Hard Name Role Phone No Primary/Referring, Phy Primary Care Provider Unavailable Encounter Details Date Type Department Care Team ([facility] Contact Info) Description 04/09/2022 Lab Requisition [place] [address] Dermatology [address] [place] [address] Rodger Lopez PA-C [address] [place] [address] [address] [place], [place] [address] Neoplasm of unspecified behavior of bone, soft tissue, and skin Social History Tobacco Use Types Packs/Day Years Used Date Smoking Tobacco: Some Days Cigarettes Last attempted to quit: 11/06/2011 Smokeless Tobacco: Never Comments:Smoking History Pac ks/day: Alcohol Use Standard Drinks/Week Comments No 0 (1 standard drink = 0.6 oz pur e alcohol) Abstinent as of 06/2013. PHQ-2 Answer Date Recorded PHQ-2 Score 0 02/17/2021 Sex and Gender Information Value Date Recorded Sex Assigned at Not on file Gender Identity Not on file Sexual Orientation Not on file documented as of this encounter Plan of Treatment Upcoming Encounters Date Type Department Care Team ([facility] Contact Info) Description 07/31/2024 2:30 PM WASHROOM CLEANER Appointment [facility] Cardiac Non-Invasive Lab [address] [place] [address] 08/18/2024 11:00 AM CDT Appointment [facility] Cardiology [address] [place] [address] Chad Wood MD [address] [place] [address] documented as of this encounter Procedures Procedure Name Priority Date/Time Associated Diagnosis Comments SURGICAL PATHOLOGY, DERMATOLOGY Routine 04/09/2022 9:00 AM CDT Neoplasm of unspecified behavior of bone, soft tissue, and skin ([facility]) documented in this encounter Results * Surgical Path, Dermatology (04/09/2022 9:00 AM CDT) Case Report Surgical Pathology Report Case: [id number] Authorizing Provider: Rodger Lopez PA-C Collected: 04/09/2022 0900 Ordering Location: [place] [address] Received: 04/10/2022 1326 Dermatology Pathologist: Vinicio Landin MD Specimens: A) - Skin punch, Abdomen, mid B) - Skin shave, Other, left lateral brow 04/15/2022 11:17 AM [facility] TINSMITH APPRENTICE 3800 DERMATOLOGY FINAL DIAGNOSIS A. 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 Clinical follow up is recommended. If pigment persists, or the lesion recurs, more complete removal is recommended. B. Skin, Other, left lateral brow, shave: -Benign intradermal melanocytic nevus, present at deep biopsy margin. 04/15/2022 11:17 AM [facility]HRO[facility] CLEANER [facility]INSM[facility] APPRENTICE 3800 DERMATOLOGY Clinical Information A. 3 mm brown macule. Rule out atypia. B. 4 mm skin-colored papule. Rule out atypia. 04/15/2022 11:17 AM WASHROOM CLEANER [facility]INSM[facility] APPRENTICE 3800 DERMATOLOGY Microscopic Description Microscopic examination is performed. 04/15/2022 11:17 AM WASHROOM CLEANER TINSMITH APPRENTICE 3800 DERMATOLOGY Special Stains A portion of the technical staining was performed at [facility], [address] [place] [id number]. The professional interpretation was performed at [facility]. 04/15/2022 11:17 AM [facility] TINSMITH APPRENTICE 3800 DERMATOLOGY Gross Description A: Received in formalin, labeled with the patient's name and Skin punch, Abdomen, mid is a 4 x 4 x 4 mm punch biopsy of skin. The specimen is marked with black ink, bisected, and submitted entirely in one cassette. B: Received in formalin, labeled with the patient's name and Skin shave, Other, left lateral brow is a 6 x 5 x 1 mm shave biopsy of skin. The specimen is marked with green ink, bisected, and submitted entirely in one cassette. CC 04/15/2022 11:17 AM [facility] TINSMITH APPRENTICE 3800 DERMATOLOGY Embedded Images 04/15/2022 11:17 AM [facility] TINSMITH APPRENTICE 3800 DERMATOLOGY Skin SHAVE BIOPSY OF SKIN / Unknown 04/09/2022 9:00 AM CDT 04/10/2022 1:26 PM CDT Skin structure (body structure) SHAVE BIOPSY OF SKIN / Unknown 04/09/2022 9:00 AM CDT 04/10/2022 1:26 PM CDT Rodger Lopez PA-C LAB PATHOLOGY TINSMITH APPRENTICE [address] [facility] [address] [place] [address], [facility] documented in this encounter Visit Diagnoses Diagnosis Neoplasm of unspecified behavior of bone, soft tissue, and skin ([facility]) documented in this encounter Care Teams Candy Separator Hard Relationship Specialty Start Date End Date No Primary/Referring, Phy PCP - General 06/28/24 documented as of this encounter
--- OUTSIDE RECORDS SUMMARY | 2024-07-06 08:19 | XMS_ITS | Encounter Summary ---
Author Organization [facility] Address [address] [address] Phone Care Team Providers Care Hand Inspector Name Role Phone Rima Florence Primary Care Provider [phone] Reason for Visit * Reason Comments Leg Pain Encounter Details Date Type Department Care Team (Late st Contact Info) Description 06/16/2024 11:38 AM CALL CENTER RECEPTIONIST - 06/16/2024 1:02 PM [facility] Emergency [facility] EMERGENCY DEPARTMENT [address] [place] [address] Ana He MD [address] [place] [address] Discharge Disposition: Left Without Being Seen (ED only) Social History Tobacco Use Types Packs/Day Years [...] Sign Reading Time Taken Comments Blood Pressure 110/69 06/16/2024 11:51 AM CALL C[facility] RECEPTIONIST Pulse 99 06/16/2024 11:51 AM CALL CENTER RECEPTIONIST Temperature 36.8 C (98.3 F) 06/16/2024 11:51 AM CALL CENTER RECEPTIONIST Respiratory Rate 16 06/16/2024 11:51 AM CALL CENTER RECEPTIONIST Oxygen Saturation 96% 06/16/2024 11:51 AM CALL CENTER RECEPTIONIST Inhaled Oxygen Concentration - - Weight 54.4 kg (120 lb) 06/16/2024 11:51 AM CALL CENTER RECEPTIONIST Height - - Body Mass Index 19.97 06/03/2024 11:29 AM CALL CENTER RECEPTIONIST documented in this encounter Functional Status * [...] Entry Date Author No 11/04/2023 10:37 PM Valentín Ferrara RN documented in this encounter Medications at Time [...] Discharge Disposition Disposition Code Departure Means Destination Left Without Being Seen (ED only) Home documented in this encounter ED Notes * Violeta Guzman, RN - 06/16/2024 11:52 AM CST Pt presents from [facility] for evaluation of left lower leg pain x1wk. Pt states she noted a rash a week ago that progressively went away, but the veins underneath hardened & area became painful. Ibuprofen taken last 2 days ago. Pt denies recent fall/injury. CENTER RECEPTIONIST documented in this encounter Plan of Treatment Not on file documented as of this encounter Visit Diagnoses Not on filedocumented in this encounter Discontinued Medications Medication Sig Discontinue Reason Start Date End Da te albuterol HFA (Proair HFA, Ventolin HFA) 108 (90 Base) MCG/ACT inhalation aerosol Inhale 1-2 Puffs into the lungs every four hours as needed for Shortness of Breath, Wheezing or Cough. Shake before using. Deleted via home med review 10/19/2023 06/16/2024 nirmatrelvir-ritonavi r EUA 300/100 (Paxlovid, 300/100,) 20 x 150 MG & 10 x 100MG tablet therapy pack Take 3 tablets in the morning and 3 tablets in the evening until gone, following package instructions. Deleted via home med review 06/03/2024 06/16/2024 documented as of this encounter Additional Health Concerns Infection Onset Date Last Indicated Resolved Time COVID-19 Confirmed 06/03/2024 06/03/2024 9:26 AM CALL CENTER RECEPTIONIST documented as of this encounter Care Teams Hand Inspector Relationship Specialty Start Date End Date Rima Florence DO [address] [address] PCP - General Family Medicine 06/16/24 documented as of this encounter
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
== END 2024-07-06 08:39 | disposition home or self-care (01) ==
LOC: ED 08:14
PROVIDERS: Emergency Provider Family Medicine
DX: I47.10 Supraventricular tachycardia, unspecified (principal)
CPT/HCPCS: 93005; 94761; 96374; 99283; 99284; 99291; J0153; J7030